=== PATIENT | female | born 1970 | race Caucasian/White ===

== ENCOUNTER → 2016-07-15 | Outpatient (CLI) | payer MEDICAID ==
--- NOTE | 2016-07-15 14:30 | US ---
EXAMINATION TYPE: US transvaginal DATE OF EXAM: 07/15/2016 9:49 AM COMPARISON: CT and US on PACS March 24, 2016. CLINICAL HISTORY: Pelvic pain x 4 months, left side > right; endometrial ablation ~ 3 years prior wit h no menses since then. TECHNIQUE: Transvaginal (TV) pelvic ultrasound Date of LMP: 3 years ago EXAM MEASUREMENTS: Uterus: 6.2 x 6.1 x 4.0cm Endometrial Stripe: 0.8cm maximum, not well seen on images saved. Right Ovary: 2.4 x 1.7 x 2.3cm Left Ovary: 2.4 x 2.6 x 2.5cm FINDINGS: TECHNOLOGIST IMPRESSION: 1. Uterus: Anteverted 2. Endometrium: small cyst = 0.3 x 0.4 x 0.3cm noted in upper hyperechoic endometrial appearing tiss ue, with endometrial tissue still noted by US post ablation 3. Right Ovary: multifollicular with largest cyst= 1.2 x 0.8 x 0.8cm 4. Left Ovary: multiple follicles with largest cyst = 1.7 x 1.8 x 1.6cm Spectral, color and waveform doppler imaging shows good arterial and venous flow within the ovaries ; there is no evidence for ovarian torsion. 5. Bilateral Adnexa: within normal limits 6. Posterior cul-de-sac: within normal limits Uterus is heterogeneous in appearance. There are small nabothian cysts in the cervix. Some small cyst ic change along the course of the endometrial stripe is present which does not appear significantly t hickened. No free fluid is seen in pelvic cul-de-sac. Both ovaries are identified. There are not well demonstrated on images saved. Some ill-defined small lesions bilaterally likely reflect follicles. No suspicious adnexal mass is clearly seen. IMPRESSION: Heterogeneous cystic change to the endometrium may be product of prior ablation otherwise unremarkable study.
--- NOTE | 2016-07-16 09:45 | MM ---
Reason for exam: screening (asymptomatic). Last mammogram was performed 2 years ago. History: Family history of breast cancer in aunt and premenopausal breast cancer in cousin at age 34. Physical Findings: A clinical breast exam by your physician is recommended on an annual basis and results should be correlated with mammographic findings. MG 3D Screening Mammo W/Cad Bilateral CC and MLO view(s) were taken. Prior study comparison: July 18, 2014, bilateral MG screening mammo w CAD. June 17, 2012, [facility] DIGITAL LEFT BREAST MAMMOGRAM w/CAD. The breast tissue is heterogeneously dense. This may lower the sensitivity of mammography. There is no discrete abnormality. No significant changes when compared with prior studies. ASSESSMENT: Negative, BI-RAD 1 RECOMMENDATION: Routine screening mammogram of both breasts in 1 year.
== END | disposition home or self-care (01) ==
LOC: RADMAMWWP 09:03
PROVIDERS: ATTEND Obstetrics & Gynecology
DX: Z12.31 Encounter for screening mammogram for malignant neoplasm of breast (principal); N85.8 Other specified noninflammatory disorders of uterus; R10.2 Pelvic and perineal pain
CPT/HCPCS: 77063; 93975; 76830; G0202

== ENCOUNTER → 2016-09-30 | Outpatient (CLI) | payer MEDICAID ==
[2016-09-30 11:32] LABS: Basophils # (A) 0.1 k/uL (0-0.2); Basophils % (A) 1 %; CH 28.6; CHCM 32.2; Eosinophils # (A) 0.1 k/uL (0-0.7); Eosinophils % (A) 2 %; HCT 42.8 % (34.0-46.0); HDW 2.27; HGB 13.8 gm/dL (11.4-16.0); Luc # (Auto) 0.11; Luc % (Auto) 2; Lymphocytes # (A) 1.8 k/uL (1.0-4.8); Lymphocytes % (A) 26 %; MCH 28.8 pg (25.0-35.0); MCHC 32.3 g/dL (31.0-37.0); MCV 89.1 fL (80.0-100.0); Mean Platelet Volume 7.5; Monocytes # (A) 0.4 k/uL (0-1.0); Monocytes % (A) 6 %; Neutrophils # (A) 4.6 k/uL (1.3-7.7); Neutrophils % (A) 64 %; RDW 13.3 % (11.5-15.5); WBC 7.1 k/uL (3.8-10.6); WBC (Perox) 7.22
[2016-09-30 11:45] LABS: Anion Gap 10 mmol/L; Blood Urea Nitrogen 14 mg/dL (7-17); Carbon Dioxide 25 mmol/L (22-30); Chloride 107 mmol/L (98-107); Glucose 83 mg/dL (74-99); Non-African American GFR(MDRD) >60 (>60 ml/min/1.73 sqM); Potassium 4.4 mmol/L (3.5-5.1); Sodium 142 mmol/L (137-145)
== END | disposition home or self-care (01) ==
LOC: LABPAT 10:57
PROVIDERS: ATTEND Obstetrics & Gynecology
DX: Z01.812 Encounter for preprocedural laboratory examination (principal)
CPT/HCPCS: 80051; 82565; 82947; 84520; 85025; 87086

== ENCOUNTER 2016-10-06 05:54 | Observation (INO) | payer MEDICAID ==
[2016-09-28 14:49] VITALS: BMI 33.0
--- NOTE | 2016-10-05 20:09 | HP ---
DATE OF ADMISSION: HISTORY: This is a 46-year-old 5, para 3-0-2-3 woman with a history of pelvic pain, status post NovaSure endometrial ablation. She has failed conservative management and desires definitive surgical management. She has a small first or second degree cystocele as well. She is scheduled for total vaginal hysterectomy with possible cystocele repair. The patient's endometrial ablation was in 2012. Since that time she has had mild bleeding, but has severe cyclic pain and pain with intercourse. Pelvic ultrasound and CT scan are essentially normal showing a uterus measuring 6.2 x 6.1 x 4.0 cm and an endometrial stripe with some small cystic fluid filled areas consistent with post ablation changes. Normal bilateral adnexa. No history of recent abnormal Pap smear. ALLERGIES: NONE. MEDICATIONS: Synthroid 150 mcg. PAST MEDICAL HISTORY: Pelvic pain, asthma, hypothyroidism. PAST SURGICAL HISTORY: Appendectomy at age 11, laminectomy in 1999 and NovaSure endometrial ablation in 2012, tonsillectomy as a child. 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 No history of pelvic infection or abnormal Pap smears. SOCIAL HISTORY: She is . She is a former smoker. No alcohol or drug use. FAMILY HISTORY: Significant for prostate cancer in a brother and COPD in her mother. REVIEW OF SYSTEMS: Negative except for that described above. PHYSICAL EXAM: Blood pressure 130/80. Height 5 foot 10, weight 228 pounds. In general, this is a pleasant female in no obvious distress. HEENT exam is unremarkable with no palpable lymphadenopathy or thyromegaly. The heart is regular rate and rhythm with no detectable murmur. LUNGS: Clear to auscultation bilaterally. The abdomen is soft and nontender with no rebound, no guarding, and no flank pain. On pelvic examination, she has normal female external genitalia without lesions or discharge. On speculum examination, the cervix is without any gross lesions. There is a small first to second degree cystocele. On bimanual examination, the uterus is small, freely mobile and in the midline. ASSESSMENT: This is a 46-year-old 5, para 3-0-2-3 woman with pelvic pain, status post endometrial ablation. She desires definitive surgical management. She also has a small first or second degree cystocele that will be evaluated. She is scheduled for total vaginal hysterectomy with possible cystocele repair on 10/06/16. This procedure, anticipated hospital course and recovery time have been reviewed with the patient. The risks have been reviewed with the patient and include, but are not limited to bleeding, transfusion, infection, laparotomy, damage to bowel, bladder, ureters and/or other pelvic or abdominal structures. There may be anesthesia complications, DVT, PE, and/or . The patient understands these risks and consent has been obtained.
[~2016-10-06 05:54] MED LIST: HYDROmorphone 1 MG/ML 1 ML SYRINGE IVP PRN; MIDAZOLAM 2 MG/2 ML VIAL IV PRN; ceFAZolin 2 GM in SODIUM CHLORIDE 0.9% 100 ML IVPB ONE
[2016-10-06] MEDS: SCOPOLAMINE 1.5MG/72HR PATCH TRANSDERM ONE ×2 (06:26→06:35)
[2016-10-06] MEDS: LIDOCAINE 1% 20 ML VIAL (10MG/ML) FOR IV START INTRADERMA PRN ×2 (06:27→06:36)
[2016-10-06] MEDS: FAMOTIDINE 20 MG/2 ML VIAL IV PRN ×2 (06:34→06:36)
[2016-10-06] MEDS: DEXAMETHASONE SOD PHOSPHATE 10 MG/ML 1 ML VIAL IV ONE ×2 (06:34→06:36)
[2016-10-06] MEDS: ONDANSETRON 4 MG/2 ML VIAL IVP ONE ×3 (06:34→10:56)
[2016-10-06] MEDS ORDERED: LACTATED RINGERS 1,000 ML IV ONE ×2 (06:34→06:37)
[2016-10-06] MEDS ORDERED: MIDAZOLAM 2 MG/2 ML VIAL ONE (07:28)
[2016-10-06] MEDS ORDERED: fentaNYL (PF) 50 MCG/ML 2 ML AMP ONE (07:28)
[2016-10-06] MEDS ORDERED: LIDOCAINE 1% INJ 10MG/ML (20 ML MDV) ONE (07:28)
[2016-10-06] MEDS ORDERED: PROPOFOL 10 MG/ML 20 ML VIAL IV ONE (07:28)
[2016-10-06] MEDS ORDERED: SUCCINYLCHOLINE CHLORIDE 100 MG/5 ML SYR IV ONE (07:28)
[2016-10-06] MEDS ORDERED: ONDANSETRON 4 MG/2 ML VIAL ONE (07:28)
[2016-10-06] MEDS ORDERED: KETOROLAC 30 MG/ML 1 ML VIAL ONE (07:28)
[2016-10-06] MEDS ORDERED: BACITRACIN 500 UNIT/GM OINT 28.4 GM TUBE TOPICAL ONE (07:43)
[2016-10-06] MEDS ORDERED: VASOPRESSIN 20 UNIT/ML 1 ML VIAL IV ONE (07:43)
--- NOTE | 2016-10-06 08:36 | P.OP ---
Date of Procedure: 10/06/16 Preoperative Diagnosis: Pelvic pain Second-degree cystocele Postoperative Diagnosis: Pelvic pain Second-degree cystocele Second-degree rectocele Procedure(s) Performed: Total vaginal hysterectomy Anesthesia: MILDRED Surgeon: Ashley Zavala Grade Foreman #1: Ghada Viveros Estimated Blood Loss (ml): 100 IV fluids (ml): 400 Urine output (ml): 200 Pathology: none sent (Uterus) Condition: stable Disposition: PACU Indications for Procedure: Worsening cyclic pelvic pain status post endometrial ablation. Symptomatic pelvic prolapse. Operative Findings: Second-degree cystocele and rectocele with first-degree cervical uterine prolapse. Description of Procedure: After the patient and her were met in the preoperative holding area and all questions were answered, she was taken to the operating room where anesthetic was administered without incident. Appropriate timeout procedure was undertaken. She was in positioned, prepped and draped in the dorsal lithotomy position. Weighted speculum was placed in the vagina. The cervix was grasped with a single-tooth tenaculum and dilute vasopressin solution was infused in the vaginal mucosa circumferentially about the cervix. Scalpel was then utilized to make a circumferential incision about the cervix. The anterior , lateral and posterior vaginal mucosa were bluntly away from the underlying cervical tissue. The posterior peritoneum was then placed on countertraction and entered sharply. The posterior peritoneum was tagged with a 2-0 Vicryl suture. The short weighted speculum was removed and a long weighted speculum was replaced. The anterior vaginal mucosa was further bluntly dissected dissected away from the underlying cervical tissue. This advanced the bladder anteriorly. The uterosacral ligaments were then clamped, cut and suture ligated using 2-0 Vicryl suture bilaterally. The broad ligaments were then clamped, cut and suture ligated bilaterally. The uterine vasculature was then clamped, cut and suture ligated bilaterally. The posterior fundus of the uterus was then delivered and a window was made in the anterior peritoneum. The bladder had been advanced anteriorly throughout this process. The left followed by the right cornual pedicles were then clamped, cut and doubly suture ligated. The right fallopian tube on the was not incorporated into this and was grasped with a Cindy clamp and tied with a free tie of 2-0 Vicryl. Both pedicles were inspected and hemostasis was noted. There was noted to be bleeding from the lateral and posterior vaginal cuff with removal of the long weighted speculum. Some areas were addressed using Bovie electrocautery. The peritoneum was then closed in a pursestring fashion. The uterosacral ligaments were incorporated with the vaginal cuff and ligated in the midline. The vaginal cuff was then further closed in an interrupted fashion with 0 Vicryl suture. The vaginal cuff was observed and hemostasis was noted. Vaginal packing with bacitracin was placed after Gomez catheter was placed. Clear urine was noted. The patient was awoken from anesthetic and transported to the recovery area in stable condition. All counts reported to me as correct by the operating room staff.
[2016-10-06] MEDS: PROMETHAZINE INJ 25 MG/ML 1 ML VIAL IVPB ONE ×2 (08:39→09:04)
[2016-10-06] MEDS ORDERED: METOCLOPRAMIDE 5 MG/ML 2 ML VIAL IVP ONE (08:54)
[2016-10-06] MEDS ORDERED: diphenhydrAMINE 50 MG/ML 1 ML VIAL IVP ONE (09:03)
[2016-10-06] MEDS: LACTATED RINGERS 1,000 ML IV SCH ×4 (09:16→20:57)
[2016-10-06] MEDS ORDERED: ZOLPIDEM 5 MG TAB PO PRN (09:30)
[2016-10-06] MEDS ORDERED: Acetaminophen-Codeine 300-30mg TAB PO PRN ×2 (09:30)
[2016-10-06] MEDS ORDERED: ACETAMINOPHEN IV (For NPO) 1,000 MG in EMPTY BAG 1 BAG IVPB ONE (09:30)
[2016-10-06] MEDS: LEVOTHYROXINE 75 MCG TAB PO SCH (10:59)
[2016-10-06] MEDS: HYDROmorphone 1 MG/ML 1 ML SYRINGE IM PRN ×3 (11:50→20:59)
[2016-10-06] MEDS ORDERED: ONDANSETRON 4 MG/2 ML VIAL IVP PRN (12:07)
[2016-10-06] MEDS ORDERED: diphenhydrAMINE 50 MG/ML 1 ML VIAL IVP PRN (12:08)
[2016-10-06] MEDS ORDERED: METOCLOPRAMIDE 5 MG/ML 2 ML VIAL IVP PRN (12:08)
[2016-10-06] MEDS: KETOROLAC 30 MG/ML 1 ML VIAL IVP SCH ×2 (15:54→22:00)
[2016-10-07] MEDS: KETOROLAC 30 MG/ML 1 ML VIAL IVP SCH ×4 (04:16→17:59)
[2016-10-07] MEDS: LEVOTHYROXINE 75 MCG TAB PO SCH (06:12)
[2016-10-07] MEDS: LACTATED RINGERS 1,000 ML IV SCH (06:13)
[2016-10-07 07:26] LABS: Basophils % (A) 0 %; CH 28.1; CHCM 31.2; Eosinophils % (A) 0 %; HDW 2.25; HGB 11.7 gm/dL (11.4-16.0); Luc # (Auto) 0.15; Luc % (Auto) 2; Lymphocytes # (A) 2.7 k/uL (1.0-4.8); Lymphocytes % (A) 29 %; MCH 29.4 pg (25.0-35.0); MCHC 32.5 g/dL (31.0-37.0); MCV 90.2 fL (80.0-100.0); Mean Platelet Volume 7.4; Monocytes # (A) 0.6 k/uL (0-1.0); Monocytes % (A) 6 %; Neutrophils % (A) 63 %; RBC 3.99 m/uL (3.80-5.40); RDW 13.1 % (11.5-15.5); WBC 9.5 k/uL (3.8-10.6); WBC (Perox) 9.68
--- NOTE | 2016-10-07 08:35 | P.DS ---
Providers Date of admission: 10/06/16 17:47 Expected date of discharge: 10/07/16 Attending physician: Ashley Zavala Primary care physician: Farhan Leonardo - Discharge Diagnosis(es) (1) Pelvic pain Current Visit: Yes Status: Acute (2) S/P hysterectomy Current Visit: Yes Status: Acute (3) Cystocele Current Visit: Yes Status: Acute Hospital Course: This is a 46 year old 5 para 3 woman with chronic worsening pelvic pain. She has a mild asymptomatic pelvic prolapse. She was admitted on 2016 and underwent an uncomplicated total vaginal hysterectomy under general anesthetic. Please see the operative report for details. On postoperative day #1 she was feeling very well. Her pain was well- controlled with oral pain medications and Toradol. She was able to ambulate and void without difficulty when the Gomez catheter was removed. She has no active vaginal bleeding. She is tolerating a general diet without difficulty. Her postoperative day #1 labs are within normal limits. Her clinical exam is benign with no active vaginal bleeding and soft abdomen. She is therefore discharged home on postoperative day #1 with routine instructions for care and follow-up. Plan - Discharge Summary New Discharge Prescriptions: Acetaminophen-Codeine 300-30mg [Tylenol w/codeine #3] 2 each PO Q6HR PRN #30 tab PRN Reason: Severe Pain Discharge Medication List Levothyroxine Sodium [Synthroid] 150 mcg PO DAILY 03/24/16 [History] Acetaminophen-Codeine 300-30mg [Tylenol w/codeine #3] 2 each PO Q6HR PRN #30 tab 10/07/16 [Rx] Ibuprofen [Motrin] 600 mg PO Q6HR PRN #0 tab 10/07/16 [Rx] Follow up Appointment(s)/Referral(s): Ashley Zavala MD [STAFF PHYSICIAN] - 2 Weeks Activity/Diet/Wound Care/Special Instructions: Follow-up in the office 2 weeks postoperatively. Call the office with any concerning signs or symptoms including heavy vaginal bleeding, foul vaginal discharge, inability to void, severe abdominal pain, fever greater than 100.5 or severe nausea and vomiting. Nothing in the vagina, no intercourse for 6 weeks. No heavy lifting until seen in follow-up. Discharge Disposition: HOME SELF-CARE
[2016-10-07] MEDS ORDERED: ACETAMINOPHEN TAB 325 MG TAB PO PRN (08:38)
[2016-10-07 09:07] VITALS: RESP 16
[2016-10-07] MEDS: HYDROmorphone 1 MG/ML 1 ML SYRINGE IM PRN (10:46)
[2016-10-07 13:17] VITALS: TEMP 98.3
[2016-10-07] MEDS ORDERED: IBUPROFEN 600 MG TAB PO PRN (15:26)
[2016-10-07 15:54] VITALS: BP 100/68; PULSE 78
[2016-10-08] MEDS ORDERED: IBUPROFEN 600 MG TAB PO PRN (18:00)
== END 2016-10-07 18:35 | disposition home or self-care (01) ==
LOC: OR 05:54 → 6PED 09:00 → OR 17:57
PROVIDERS: ADMIT Obstetrics & Gynecology; ATTEND Obstetrics & Gynecology
DX: N81.4 Uterovaginal prolapse, unspecified (principal); R10.2 Pelvic and perineal pain; E03.9 Hypothyroidism, unspecified; Z87.891 Personal history of nicotine dependence
CPT/HCPCS: 81025; 86900; 86901; 85025; 86850; 88307; 58260; G0378 ×2; J2250; J1200; J1100; J2550; J2765; J0690; J2405; J2001; J3010; J1885 ×2; J1170 ×2; J0131; J0330; J2704; 96376

== ENCOUNTER → 2017-08-23 | Outpatient (CLI) | payer MEDICAID ==
--- NOTE | 2017-08-23 16:00 | XR ---
Cervical spine HISTORY: Bilateral shoulder pain 5 views of the cervical spine Comparison to prior exam 08/30/2013 There is no significant foraminal encroachment on oblique views. Cervical vertebral bodies show stabl e height, alignment, and bone mineralization. Disc spaces are unchanged. Mild loss of disc height pre sent at C5-6. Prevertebral soft tissues are normal. IMPRESSION: Mild degenerative disc disease is suspected, cervical MRI may be of benefit.
== END | disposition home or self-care (01) ==
LOC: RADXRYALE 13:49
PROVIDERS: ATTEND Physician Assistant
DX: M50.10 Cervical disc disorder with radiculopathy, unspecified cervical region (principal); M25.519 Pain in unspecified shoulder
CPT/HCPCS: 72050

== ENCOUNTER → 2017-09-02 | Outpatient (CLI) | payer MEDICAID ==
--- NOTE | 2017-09-02 17:08 | XR ---
First digit right hand HISTORY: Injury 3 weeks prior, pain 2 views of the first digit of the right hand Bone mineralization, joint spaces and alignment are maintained. Some spurring present at the radiocar pal joint. Question subluxation at the radial ulnar joint, patient positioning may be suboptimal. Cor relate clinically. IMPRESSION: No acute fracture or dislocation evident. Additional findings above.
== END | disposition home or self-care (01) ==
LOC: RADXRYALE 14:56
PROVIDERS: ATTEND Physician Assistant Medical
DX: M79.641 Pain in right hand (principal)

== ENCOUNTER → 2017-09-08 | Outpatient (CLI) | payer MEDICAID ==
--- NOTE | 2017-09-08 23:05 | MR ---
EXAMINATION TYPE: MR cervical spine wo con DATE OF EXAM: 09/08/2017 COMPARISON: NONE HISTORY: 47-year-old female Neck pain, BUE weakness, headaches TECHNIQUE: Multiplanar, multisequence images of the cervical spine were acquired. Findings: No craniocervical junction abnormality, predental space widening, or prevertebral soft tissue swellin g. Normal alignment of the cervical spine. Mild heterogeneous marrow signal without suspicious bone marrow replacement. There is mild multilevel degenerative disc disease characterized by variable disc desiccation. Minima l posterior disc bulges are present at C5-C6 and C6/C7. At C6/C7, there is a right paracentral annula r fissure. Scattered mild facet degenerative change. Axial series do not confirm any abnormal T2 cord signal abnormality. Normal course and caliber of the cervical cord. At C2-C3, mild facet arthropathy without canal or foraminal stenosis. At C3 to mild facet arthropathy without canal or foraminal stenosis. At C4-C5, mild facet arthropathy without canal or foraminal stenosis. At C5-C6, mild facet arthropathy and minimal posterior disc bulging without canal or foraminal stenos is. At C6/C7, minimal posterior disc bulging with facet degenerative change. No significant canal or fora magan stenosis. C7-T1 no spinal canal or neuroforaminal stenosis. No prevertebral or paravertebral soft tissue abnormality seen. IMPRESSION: 1. Mild multilevel degenerative disc disease. Minimal posterior disc bulging at C5-C6 and C6-C7 and a small right paracentral annular fissure at C6-C7. 2. Additional scattered facet arthropathy. 3. No significant spinal canal or neuroforaminal stenosis.
== END | disposition home or self-care (01) ==
LOC: RADMRIMAIN 19:41
PROVIDERS: ATTEND Physician Assistant
DX: M50.10 Cervical disc disorder with radiculopathy, unspecified cervical region (principal); M50.122 Cervical disc disorder at C5-C6 level with radiculopathy; M46.92 Unspecified inflammatory spondylopathy, cervical region
CPT/HCPCS: 72141

== ENCOUNTER → 2017-09-23 | Outpatient (CLI) | payer MEDICAID ==
--- NOTE | 2017-09-23 17:36 | XR ---
EXAMINATION TYPE: XR shoulder complete BILAT DATE OF EXAM: 09/23/2017 COMPARISON: NONE HISTORY: Shoulder pain TECHNIQUE: 6 views FINDINGS: 3 views of each shoulder were obtained. I see no fracture nor dislocation. Joint spaces are fairly normal. There are no pathologic calcificat ions. IMPRESSION: Negative bilateral shoulder exam. No fracture.
== END | disposition home or self-care (01) ==
LOC: RADXRMAIN 16:45
PROVIDERS: ATTEND Orthopaedic Surgery
DX: M25.511 Pain in right shoulder (principal); M65.811 Other synovitis and tenosynovitis, right shoulder; M25.512 Pain in left shoulder; M65.812 Other synovitis and tenosynovitis, left shoulder; M75.42 Impingement syndrome of left shoulder; M75.41 Impingement syndrome of right shoulder; M75.82 Other shoulder lesions, left shoulder; M75.81 Other shoulder lesions, right shoulder

== ENCOUNTER → 2018-08-23 | Outpatient (CLI) | payer MEDICAID ==
--- NOTE | 2018-08-23 15:46 | XR ---
Right hip HISTORY: Chronic right hip pain 2 views of the right hip Bone mineralization, joint spaces and alignment are maintained. No fracture or dislocation. Indetermi misa calcification present in the right hemipelvis. IMPRESSION: Normal right hip, MRI may be of benefit.
== END | disposition home or self-care (01) ==
LOC: RADXRYALE 15:11
PROVIDERS: ATTEND Family Medicine
DX: M25.551 Pain in right hip (principal)
CPT/HCPCS: 73502

== ENCOUNTER 2018-12-08 15:25 | Observation (INO) | payer MEDICAID ==
[2018-12-08] MEDS ORDERED: ASPIRIN 81 MG PO STA (16:01)
[2018-12-08] MEDS ORDERED: NITROGLYCERIN OINT 1 INCH/GM PACKET TOPICAL STA (16:01)
--- NOTE | 2018-12-08 16:05 | ED ---
General Adult HPI - General Chief complaint: Chest Pain Stated complaint: Chest pain, ekg changes Time Seen by Provider: 12/08/18 15:30 Source: patient, RN notes reviewed Mode of arrival: wheelchair Limitations: no limitations - History of Present Illness Initial comments: This is a 48-year-old female who presents to the emergency department complaining of right-sided chest pain that radiates to her shoulder. Patient states she also became diaphoretic and nauseated with it today. Patient states been ongoing for about 2 hours. Patient states she has a history of high cholesterol but refuses to take any for high cholesterol medications. Patient states the pain is sharp in nature. Patient states she does not smoke she has no diabetes she has no family history of heart disease. Patient states she was sent in because the PA at the primary medical care doctor's office. EKG showed some changes from a previous EKG. - Related Data Home Medications Medication Instructions Recorded Confirmed Levothyroxine Sodium [Synthroid] 150 mcg PO DAILY 03/24/16 12/08/18 Allergies Allergy/AdvReac Type Severity Reaction Status Date / Time influenza virus vaccine, Allergy Unknown Verified 12/08/18 16:06 specific [influenza virus vacc,specific] Review of Systems ROS Statement: Those systems with pertinent positive or pertinent negative responses have been documented in the HPI. ROS Other: All systems not noted in ROS Statement are negative. Past Medical History Past Medical History: Thyroid Disorder Additional Past Medical History / Comment(s): PELVIC PAIN. GR 2 CYSTOCELE History of Any Multi-Drug Resistant Organisms: None Reported Past Surgical History: Appendectomy, Back Surgery, Tonsillectomy Additional Past Surgical History / Comment(s): uterine ablation. LAMINECTOMY Past Anesthesia/Blood Transfusion Reactions: Motion Sickness Past Psychological History: No Psychological Hx Reported Smoking Status: Never smoker Past Alcohol Use History: None Reported Past Drug Use History: None Reported - Past Family History Father Family Medical History: Deep Vein Thrombosis (DVT) General Exam - General Exam Comments Initial Comments: GENERAL: Patient is well-developed and well-nourished. Patient is nontoxic and well- hydrated and is in mild distress. ENT: Neck is soft and supple. No significant lymphadenopathy is noted. Oropharynx is clear. Moist mucous membranes. Neck has full range of motion without eliciting any pain. EYES: The sclera were anicteric and conjunctiva were pink and moist. Extraocular movements were intact and pupils were equal round and reactive to light. Eyelids were unremarkable. PULMONARY: Unlabored respirations. Good breath sounds bilaterally. No audible rales rhonchi or wheezing was noted. CARDIOVASCULAR: There is a regular rate and rhythm without any murmurs gallops or rubs. ABDOMEN: Soft and nontender with normal bowel sounds. SKIN: Skin is clear with no lesions or rashes and otherwise unremarkable. NEUROLOGIC: Patient is alert and oriented x3. Cranial nerves II through XII are grossly intact. Motor and sensory are also intact. Normal speech, volume and content. Symmetrical smile. MUSCULOSKELETAL: Normal extremities with adequate strength and full range of motion. LYMPHATICS: No significant lymphadenopathy is noted PSYCHIATRIC: Normal psychiatric evaluation. Limitations: no limitations Course Vital Signs 12/08/18 15:27 Temperature 98.3 F Pulse Rate 100 Respiratory 18 Rate Blood Pressure 137/90 O2 Sat by Pulse 99 Oximetry Medical Decision Making - Medical Decision Making EKG shows normal sinus rhythm at 87 bpm MN interval 224 QRS is 76 QT interval 380 QTC is 457. Patient's EKG shows no ST segment elevation or depression. I compared this EKG to a past EKG that she brought with her and there are no acute changes noted - Lab Data Result diagrams: 12/08/18 16:02 12/08/18 16:02 Lab Results 12/08/18 12/08/18 12/08/18 Range/Units 16:02 16:02 16:02 WBC 10.4 (3.8-10.6) k/uL RBC 4.89 (3.80-5.40) m/uL Hgb 13.4 (11.4-16.0) gm/dL Hct 41.9 (34.0-46.0) % MCV 85.5 (80.0-100.0) fL MCH 27.3 (25.0-35.0) pg MCHC 31.9 (31.0-37.0) g/dL RDW 13.8 (11.5-15.5) % Plt Count 350 (150-450) k/uL Neutrophils % 64 % Lymphocytes % 26 % Monocytes % 5 % Eosinophils % 2 % Basophils % 0 % Neutrophils # 6.7 (1.3-7.7) k/uL Lymphocytes # 2.7 (1.0-4.8) k/uL Monocytes # 0.6 (0-1.0) k/uL Eosinophils # 0.2 (0-0.7) k/uL Basophils # 0.0 (0-0.2) k/uL PT 9.3 (9.0-12.0) sec INR 0.8 (<1.2) APTT 25.6 (22.0-30.0) sec D-Dimer 0.51 (<0.60) mg/L FEU Sodium 139 (137-145) mmol/L Potassium 4.1 (3.5-5.1) mmol/L Chloride 105 (98-107) mmol/L Carbon Dioxide 25 (22-30) mmol/L Anion Gap 9 mmol/L BUN 11 (7-17) mg/dL Creatinine 0.72 (0.52-1.04) mg/dL Est GFR (CKD-EPI)AfAm >90 (>60 ml/min/1.73 sqM) Est GFR (CKD-EPI)NonAf >90 (>60 ml/min/1.73 sqM) Glucose 86 (74-99) mg/dL Calcium 9.0 (8.4-10.2) mg/dL Magnesium 2.2 (1.6-2.3) mg/dL Total Bilirubin 0.4 (0.2-1.3) mg/dL AST 19 (14-36) U/L ALT 15 (9-52) U/L Alkaline Phosphatase 124 (38-126) U/L Troponin I (0.000-0.034) ng/mL Total Protein 7.1 (6.3-8.2) g/dL Albumin 4.3 (3.5-5.0) g/dL 12/08/18 Range/Units 16:02 WBC (3.8-10.6) k/uL RBC (3.80-5.40) m/uL Hgb (11.4-16.0) gm/dL Hct (34.0-46.0) % MCV (80.0-100.0) fL MCH (25.0-35.0) pg MCHC (31.0-37.0) g/dL RDW (11.5-15.5) % Plt Count (150-450) k/uL Neutrophils % % Lymphocytes % % Monocytes % % Eosinophils % % Basophils % % Neutrophils # (1.3-7.7) k/uL Lymphocytes # (1.0-4.8) k/uL Monocytes # (0-1.0) k/uL Eosinophils # (0-0.7) k/uL Basophils # (0-0.2) k/uL PT (9.0-12.0) sec INR (<1.2) APTT (22.0-30.0) sec D-Dimer (<0.60) mg/L FEU Sodium (137-145) mmol/L Potassium (3.5-5.1) mmol/L Chloride (98-107) mmol/L Carbon Dioxide (22-30) mmol/L Anion Gap mmol/L BUN (7-17) mg/dL Creatinine (0.52-1.04) mg/dL Est GFR (CKD-EPI)AfAm (>60 ml/min/1.73 sqM) Est GFR (CKD-EPI)NonAf (>60 ml/min/1.73 sqM) Glucose (74-99) mg/dL Calcium (8.4-10.2) mg/dL Magnesium (1.6-2.3) mg/dL Total Bilirubin (0.2-1.3) mg/dL AST (14-36) U/L ALT (9-52) U/L Alkaline Phosphatase (38-126) U/L Troponin I <0.012 (0.000-0.034) ng/mL Total Protein (6.3-8.2) g/dL Albumin (3.5-5.0) g/dL Disposition Clinical Impression: Chest pain Disposition: ADMITTED IP TO THIS HOSP Referrals: Farhan Leonardo DO [Primary Care Provider] - 1-2 days Time of Disposition: 18:01
[2018-12-08 16:34] LABS: Basophils % (A) 0 %; Eosinophils # (A) 0.2 k/uL (0-0.7); Eosinophils % (A) 2 %; HCT 41.9 % (34.0-46.0); HGB 13.4 gm/dL (11.4-16.0); Lymphocytes # (A) 2.7 k/uL (1.0-4.8); Lymphocytes % (A) 26 %; MCH 27.3 pg (25.0-35.0); MCHC 31.9 g/dL (31.0-37.0); MCV 85.5 fL (80.0-100.0); Mean Platelet Volume 7.7; Monocytes # (A) 0.6 k/uL (0-1.0); Monocytes % (A) 5 %; Neutrophils # (A) 6.7 k/uL (1.3-7.7); Neutrophils % (A) 64 %; Platelet Count 350 k/uL (150-450); RBC 4.89 m/uL (3.80-5.40); RDW 13.8 % (11.5-15.5); WBC 10.4 k/uL (3.8-10.6)
[2018-12-08 16:43] LABS: ALT 15 U/L (9-52); AST 19 U/L (14-36); African American GFR (CKD) >90 (>60 ml/min/1.73 sqM); Albumin 4.3 g/dL (3.5-5.0); Alkaline Phosphatase 124 U/L (38-126); Anion Gap 9 mmol/L; Blood Urea Nitrogen 11 mg/dL (7-17); Carbon Dioxide 25 mmol/L (22-30); Chloride 105 mmol/L (98-107); Glucose 86 mg/dL (74-99); Magnesium 2.2 mg/dL (1.6-2.3); Potassium 4.1 mmol/L (3.5-5.1); Sodium 139 mmol/L (137-145); Total Bilirubin 0.4 mg/dL (0.2-1.3); Total Protein 7.1 g/dL (6.3-8.2)
[2018-12-08 16:49] LABS: D-Dimer 0.51 mg/L FEU (<0.60); INR 0.8 (<1.2); Partial Thromboplastin Time 25.6 sec (22.0-30.0); Prothrombin Time 9.3 sec (9.0-12.0)
--- NOTE | 2018-12-08 17:21 | XR ---
EXAMINATION TYPE: XR chest 2V DATE OF EXAM: 12/08/2018 COMPARISON: 03/30/2015 HISTORY: Chest pain TECHNIQUE: Frontal and lateral views of the chest are obtained. FINDINGS: Heart and mediastinum are normal. Lungs are clear. Diaphragm is normal. Bony thorax is nor mal. There are chest leads. IMPRESSION: Normal chest. No change.
[2018-12-08] MEDS ORDERED: NITROGLYCERIN SL TABS 0.4 MG TAB SUBLINGUAL PRN (18:01)
[2018-12-08 21:39] VITALS: BMI 37.3
[2018-12-08] MEDS: ACETAMINOPHEN TAB 500 MG TAB PO PRN (22:03)
[2018-12-08] MEDS: NITROGLYCERIN OINT 1 INCH/GM PACKET TOPICAL SCH (23:09)
[2018-12-08 23:22] VITALS: RESP 18
[2018-12-09 04:36] LABS: Cholesterol 198 mg/dL (<200); HDL Cholesterol 40 mg/dL (40-60); LDL Cholesterol,Calculated 138 mg/dL (0-99); Triglycerides 98 mg/dL (<150)
[2018-12-09] MEDS: NITROGLYCERIN OINT 1 INCH/GM PACKET TOPICAL SCH ×2 (05:07→11:12)
[2018-12-09] MEDS: ACETAMINOPHEN TAB 500 MG TAB PO PRN (05:07)
[2018-12-09] MEDS ORDERED: LEVOTHYROXINE 75 MCG TAB PO SCH (06:30)
[2018-12-09] MEDS ORDERED: ASPIRIN 325 MG TAB PO SCH (09:00)
--- NOTE | 2018-12-09 09:00 | P.CRDCN ---
History of Present Illness Consult date: 12/09/18 History of present illness: This is a 48-year-old female with history of mild hypercholesterolemia who works at the [employer] in [place]. She is has been having some left-sided chest pain which was like a pinching sensation for the last one week. Yesterday while she was at work. The pain got more intense and apparently went to the shoulder area. EKG was performed and [facility] and apparently there was some EKG changes. Patient was sent to the emergency room. Patient was treated with nitroglycerin with relief of pain. Since then patient has been stable. Her EKG did not reveal any acute changes here. Cardiac enzymes are negative. No history of previous myocardial infarctions or stroke. No history of hypertension or diabetes. No family history of ischemic heart disease. Apparently her father had atrial fibrillation. Patient is being scheduled for an echo and also stress echocardiogram. If the test are negative, patient could be discharged home. Past Medical History Past Medical History: Hyperlipidemia, Thyroid Disorder Additional Past Medical History / Comment(s): PELVIC PAIN. GR 2 CYSTOCELE History of Any Multi-Drug Resistant Organisms: None Reported Past Surgical History: Appendectomy, Back Surgery, Tonsillectomy Additional Past Surgical History / Comment(s): uterine ablation. LAMINECTOMY Past Anesthesia/Blood Transfusion Reactions: Motion Sickness Past Psychological History: No Psychological Hx Reported Smoking Status: Former smoker Past Alcohol Use History: None Reported Past Drug Use History: None Reported - Past Family History Father Family Medical History: Deep Vein Thrombosis (DVT) Mother Additional Family Medical History / Comment(s): Emphysema, patient states mother passed when she was 68. Medications and Allergies Home Medications Medication Instructions Recorded Confirmed Type Levothyroxine Sodium [Synthroid] 150 mcg PO DAILY 03/24/16 12/08/18 History Allergies Allergy/AdvReac Type Severity Reaction Status Date / Time influenza virus vaccine, Allergy Unknown Verified 12/08/18 16:06 specific [influenza virus vacc,specific] Physical Exam Vitals: Vital Signs Temp Pulse Pulse Resp BP BP Pulse Ox 12/09/18 08:00 98.1 F 79 18 109/63 97 12/09/18 04:00 98.2 F 18 112/62 98 12/08/18 23:21 98 F 18 142/70 98 12/08/18 21:10 98.3 F 66 14 107/59 94 L 12/08/18 20:40 96 18 113/84 97 12/08/18 20:10 91 16 116/78 96 12/08/18 19:40 90 23 117/79 95 12/08/18 19:30 86 12 112/74 96 12/08/18 19:20 90 11 L 113/65 95 12/08/18 19:10 76 22 113/65 96 12/08/18 18:50 78 18 111/61 95 12/08/18 18:44 57 L 18 125/76 97 12/08/18 18:27 80 18 127/77 97 12/08/18 15:42 96 12/08/18 15:27 98.3 F 100 18 137/90 99 Intake and Output 12/08/18 12/09/18 12/09/18 22:59 06:59 14:59 Other: # Voids 1 Weight 117.934 kg 119.6 kg GENERAL EXAM: Patient is alert and oriented and doesn't appear to be in any acute distress HEENT: Normocephalic. Normal reaction of pupils, equal size, normal range of extraocular motion. No erythema or exudates in the throat. NECK: No masses, no nuchal rigidity. CHEST: No chest wall deformity. LUNGS: Equal air entry with no crackles or wheeze. HEART: S1 and S2 normal with no audible mumurs or gallops. Regular rhythm, femorals equal on both sides.. ABDOMEN: No hepatosplenomegaly, normal bowel sounds, no guarding or rigidity. SKIN: No rashes CENTRAL NERVOUS SYSTEM: No focal deficits. EXTREMITIES: No cyanosis, clubbing or edema. Results 12/08/18 16:02 12/08/18 16:02 Cardiac Enzymes 12/08/18 12/08/18 12/08/18 Range/Units 16:02 16:02 22:08 AST 19 (14-36) U/L Troponin I <0.012 <0.012 (0.000-0.034) ng/mL 12/09/18 Range/Units 03:32 AST (14-36) U/L Troponin I <0.012 (0.000-0.034) ng/mL Coagulation 12/08/18 Range/Units 16:02 PT 9.3 (9.0-12.0) sec APTT 25.6 (22.0-30.0) sec Lipids 12/09/18 Range/Units 03:32 Triglycerides 98 (<150) mg/dL Cholesterol 198 (<200) mg/dL HDL Cholesterol 40 (40-60) mg/dL CBC 12/08/18 Range/Units 16:02 WBC 10.4 (3.8-10.6) k/uL RBC 4.89 (3.80-5.40) m/uL Hgb 13.4 (11.4-16.0) gm/dL Hct 41.9 (34.0-46.0) % Plt Count 350 (150-450) k/uL Comprehensive Metabolic Panel 12/08/18 Range/Units 16:02 Sodium 139 (137-145) mmol/L Potassium 4.1 (3.5-5.1) mmol/L Chloride 105 (98-107) mmol/L Carbon Dioxide 25 (22-30) mmol/L BUN 11 (7-17) mg/dL Creatinine 0.72 (0.52-1.04) mg/dL Glucose 86 (74-99) mg/dL Calcium 9.0 (8.4-10.2) mg/dL AST 19 (14-36) U/L ALT 15 (9-52) U/L Alkaline Phosphatase 124 (38-126) U/L Total Protein 7.1 (6.3-8.2) g/dL Albumin 4.3 (3.5-5.0) g/dL Current Medications Generic Name Dose Route Start Last Admin Trade Name Freq PRN Reason Stop Dose Admin Acetaminophen 500 mg 12/08/18 21:55 12/09/18 05:07 Tylenol Tab PO 500 mg Q4HR PRN Administration Fever and/ or Pain Aspirin 325 mg 12/09/18 09:00 12/09/18 08:18 Aspirin PO 325 mg DAILY ALAN Administration Levothyroxine Sodium 150 mcg 12/09/18 06:30 12/09/18 05:08 Synthroid PO 150 mcg 0630 ALAN Administration Nitroglycerin 1 inch 12/09/18 00:00 12/09/18 05:07 Nitro-Bid Oint TOPICAL 1 inch Q6HR ALAN Administration Nitroglycerin 0.4 mg 12/08/18 18:01 Nitrostat SUBLINGUAL Q5M PRN Chest Pain Intake and Output 12/08/18 12/09/18 12/09/18 22:59 06:59 14:59 Other: # Voids 1 Weight 117.934 kg 119.6 kg 12/08/18 16:02 12/08/18 16:02 EKG Interpretations (text) Sinus rhythm Assessment and Plan (1) Hypothyroidism Current Visit: Yes Status: Acute Code(s): E03.9 - HYPOTHYROIDISM, UNSPECIFIED SNOMED Code(s): 40447757 (2) Chest pain Current Visit: Yes Status: Acute Code(s): R07.9 - CHEST PAIN, UNSPECIFIED SNOMED Code(s): 66252694 (3) Hypercholesterolemia Current Visit: Yes Status: Acute Code(s): E78.00 - PURE HYPERCHOLESTEROLEMIA, UNSPECIFIED SNOMED Code(s): 61086612 Plan: The chest pains appear to be atypical. Patient is being scheduled for stress echocardiogram, and also surface echocardiogram. If the test results are normal, patient could be discharged home
[2018-12-09 11:25] VITALS: BP 131/86; PULSE 86; TEMP 98
--- NOTE | 2018-12-09 13:07 | ECHOF ---
Referral Reason:Chest pain and cardiomyopathy MEASUREMENTS -------- HEIGHT: 0.0 cm WEIGHT: 119.3 kg BP: 118/77 RVIDd: 3.7 cm (< 3.3) IVSd: 1.1 cm (0.6 - 1.1) LVIDd: 4.4 cm (3.9 - 5.3) LVPWd: 1.0 cm (0.6 - 1.1) IVSs: 1.5 cm LVIDs: 3.1 cm LVPWs: 1.7 cm LAESV Index (A-L): 20.98 ml/m Ao Diam: 3.0 cm (2.0 - 3.7) AV Cusp: 3.9 cm (1.5 - 2.6) LA Diam: 1.3 cm (2.7 - 3.8) MV EXCURSION: 12.148 mm (> 18.000) MV EF SLOPE: 87 mm/s (70 - 150) EPSS: 1.2 cm MV E Taran: 0.77 m/s MV DecT: 214 ms MV A Taran: 0.71 m/s MV E/A Ratio: 1.08 RAP: 5.00 mmHg RVSP: 31.31 mmHg FINDINGS -------- Sinus rhythm. This was a technically adequate study. The left ventricular size is normal. There is borderline concentric left ventricular hypertrophy. Overall left ventricular systolic function is normal with, an EF between 55 - 60 %. The right ventricle is mildly enlarged. Normal LA size by volume 22+/-6 ml/m2. The right atrial size is normal. Interatrial and interventricular septum intact. The aortic valve is trileaflet, and appears structurally normal. No aortic stenosis or regurgitation. The mitral valve is normal. There is trace mitral regurgitation. Mild tricuspid regurgitation present. There is no evidence of pulmonary hypertension. The right v entricular systolic pressure, as measured by Doppler, is 31.31mmHg. There is no pulmonic regurgitation present. The aortic root size is normal. Normal inferior vena cava with normal inspiratory collapse consistent with estimated right atrial pre ssure of 5 mmHg. Echo free space indicative of a pericardial fat pad. CONCLUSIONS -------- 1. Sinus rhythm. 2. This was a technically adequate study. 3. The left ventricular size is normal. 4. There is borderline concentric left ventricular hypertrophy. 5. Overall left ventricular systolic function is normal with, an EF between 55 - 60 %. 6. The right ventricle is mildly enlarged. 7. Normal LA size by volume 22+/-6 ml/m2. 8. The aortic valve is trileaflet, and appears structurally normal. No aortic stenosis or regurgitati on. 9. The mitral valve is normal. 10. There is trace mitral regurgitation. 11. Mild tricuspid regurgitation present. 12. There is no evidence of pulmonary hypertension. 13. There is no pulmonic regurgitation present. 14. Echo free space indicative of a pericardial fat pad. DRAINMAN: Aicha Rey RDCS
--- NOTE | 2018-12-09 13:59 | ECHOS ---
STRESS ECHOCARDIOGRAM INDICATIONS: Chest pain/palpitations. BASELINE HEART RATE: 82 BASELINE BLOOD PRESSURE: 118/77 MAXIMUM HEART RATE: 146 MAXIMUM BLOOD PRESSURE: 141/102 85% MPHR: 145 100% MPHR: 172 METS: 7.7 MAXIMUM STAGE REACHED: 2 TOTAL EXERCISE TIME: 6:00 CLINICAL INFORMATION: Baseline rhythm is sinus mechanism, rate of 82, normal axis, intervals, normal electrocardiogram. Baseline blood pressure 118/77 mmHg. Patient exercised on Carson protocol for 6 minute reaching peak rate 146 beats per minute which is equal to 85% maximum predicted heart rate. Peak blood pressure 141/102 mmHg. Test was terminated due to fatigue. There was no chest pain. Electrocardiograph monitoring revealed no evidence of diagnostic ischemic ST deviation. FINDINGS: Baseline echocardiogram revealed normal wall thickening and motion. At peak exercise, there was normal wall motion augmentation with no hypokinesis or dyskinesis. CONCLUSION: 1. Decreased exercise tolerance was normal electrocardiograph response to exercise. 2. Normal stress echocardiogram with no evidence of stress-induced ischemia. MMODL / IJN: [id number] /
--- NOTE | 2018-12-09 15:21 | P.HPIM ---
History of Present Illness 48-year-old female came in with compensative for left sided precordial chest pain pinching sensation lack has been going on for a since last week. Patient denied any diaphoresis denied lightheadedness chance of breath patient has r adiation of this pain to the left neck area lasted only for a few minutes. He does of which a cardiology evaluated the patient patient had an EKG troponins are negative EKG did not show any acute ST-T wave changes. Patient the had an echo and a stress echo if that negative patient will be discharged today. Etiology of chest pain is not clear May be musculoskeletal. Patient doesn't have any cough chest x-ray did not show pneumonia Review of Systems REVIEW OF SYSTEMS: CONSTITUTIONAL: No fever, no malaise, no fatigue. HEENT: No recent visual problems or hearing problems. Denied any sore throat. CARDIOVASCULAR: No orthopnea, PND, no palpitations, no syncope. PULMONARY: No shortness of breath, no cough, no hemoptysis. GASTROINTESTINAL: No diarrhea, no nausea, no vomiting, no abdominal pain. NEUROLOGICAL: No headaches, no weakness, no numbness. HEMATOLOGICAL: Denies any bleeding or petechiae. GENITOURINARY: Denies any burning micturition, frequency, or urgency. MUSCULOSKELETAL/RHEUMATOLOGICAL: Denies any joint pain, swelling, or any muscle pain. ENDOCRINE: Denies any polyuria or polydipsia. The rest of the 14-point review of systems is negative. Past Medical History Past Medical History: Hyperlipidemia, Thyroid Disorder Additional Past Medical History / Comment(s): PELVIC PAIN. GR 2 CYSTOCELE History of Any Multi-Drug Resistant Organisms: None Reported Past Surgical History: Appendectomy, Back Surgery, Tonsillectomy Additional Past Surgical History / Comment(s): uterine ablation. LAMINECTOMY Past Anesthesia/Blood Transfusion Reactions: Motion Sickness Past Psychological History: No Psychological Hx Reported Smoking Status: Former smoker Past Alcohol Use History: None Reported Past Drug Use History: None Reported - Past Family History Father Family Medical History: Deep Vein Thrombosis (DVT) Mother Additional Family Medical History / Comment(s): Emphysema, patient states mother passed when she was 68. Medications and Allergies Home Medications Medication Instructions Recorded Confirmed Type Levothyroxine Sodium [Synthroid] 150 mcg PO DAILY 03/24/16 12/08/18 History Allergies Allergy/AdvReac Type Severity Reaction Status Date / Time influenza virus vaccine, Allergy Unknown Verified 12/08/18 16:06 specific [influenza virus vacc,specific] Physical Exam Vitals: Vital Signs Temp Pulse Pulse Resp BP BP Pulse Ox 12/09/18 11:25 98 F 86 18 131/86 12/09/18 08:00 98.1 F 79 18 109/63 97 12/09/18 04:00 98.2 F 18 112/62 98 12/08/18 23:21 98 F 18 142/70 98 12/08/18 21:10 98.3 F 66 14 107/59 94 L 12/08/18 20:40 96 18 113/84 97 12/08/18 20:10 91 16 116/78 96 12/08/18 19:40 90 23 117/79 95 12/08/18 19:30 86 12 112/74 96 12/08/18 19:20 90 11 L 113/65 95 12/08/18 19:10 76 22 113/65 96 12/08/18 18:50 78 18 111/61 95 12/08/18 18:44 57 L 18 125/76 97 12/08/18 18:27 80 18 127/77 97 12/08/18 15:42 96 12/08/18 15:27 98.3 F 100 18 137/90 99 Intake and Output 12/09/18 12/09/18 12/09/18 06:59 14:59 22:59 Other: # Voids 1 Weight 119.6 kg PHYSICAL EXAMINATION: GENERAL: The patient is alert and oriented x3, not in any acute distress. Well developed, well nourished. HEENT: Pupils are round and equally reacting to light. EOMI. No scleral icterus. No conjunctival pallor. Normocephalic, atraumatic. No pharyngeal erythema. No thyromegaly. CARDIOVASCULAR: S1 and S2 present. No murmurs, rubs, or gallops. PULMONARY: Chest is clear to auscultation, no wheezing or crackles. ABDOMEN: Soft, nontender, nondistended, normoactive bowel sounds. No palpable organomegaly. MUSCULOSKELETAL: No joint swelling or deformity. EXTREMITIES: No cyanosis, clubbing, or pedal edema. NEUROLOGICAL: Gross neurological examination did not reveal any focal deficits. SKIN: No rashes. Results CBC & Chem 7: 12/08/18 16:02 12/08/18 16:02 Labs: Abnormal Lab Results - Last 24 Hours (Table) 12/09/18 Range/Units 03:32 LDL Cholesterol, Calc 138 H (0-99) mg/dL Thrombosis Risk Factor Assmnt - Choose All That Apply Any of the Below Risk Factors Present?: Yes Each Factor Represents 1 point: Age 41-60 years, Swollen legs (current) Other Risk Factors: No Other congenital or acquired thrombophilia - If yes, enter type in comment: No Thrombosis Risk Factor Assessment Total Risk Factor Score: 2 Thrombosis Risk Factor Assessment Level: Low Risk Assessment and Plan Plan: Chest pain: Rule out acute coronary syndromes, unstable angina. Troponins are negative. EKG did not show significant abnormality. Patient is undergoing stresses if that's negative patient will be discharged today -Hypothyroidism Hypertension
--- NOTE | 2018-12-09 15:22 | P.DS ---
Providers Date of admission: 12/08/18 18:01 Attending physician: Zoie Reid Consults: 12/08/18 18:01 Consult Physician Urgent Consulting Provider: [facility] Consult Reason/Comments: Chest pain Do you want consulting provider notified?: Yes Primary care physician: Farhan Leonardo [facility] Course: Reason for to my HPI Plan - Discharge Summary Discharge Rx Participant: No New Discharge Prescriptions: No Action Levothyroxine Sodium [Synthroid] 150 mcg PO DAILY Discharge Medication List Levothyroxine Sodium [Synthroid] 150 mcg PO DAILY 03/24/16 [History] Follow up Appointment(s)/Referral(s): Svetlana Vasquez MD [STAFF PHYSICIAN] - 12/20/18 8:30 am Farhan Leonardo DO [Primary Care Provider] - 3 Days Patient Instructions/Handouts: Angina (DC), Cardiac Stress Test (DC) Discharge Disposition: HOME SELF-CARE
== END 2018-12-09 15:25 | disposition home or self-care (01) ==
LOC: EC 15:25 → 1SOBS 18:01 → 3SCARD 21:02
PROVIDERS: ADMIT Internal Medicine; ATTEND Internal Medicine
DX: R07.2 Precordial pain (principal); R07.89 Other chest pain; R11.0 Nausea; R61 Generalized hyperhidrosis; E78.5 Hyperlipidemia, unspecified; M79.89 Other specified soft tissue disorders; E03.9 Hypothyroidism, unspecified; I10 Essential (primary) hypertension; E78.00 Pure hypercholesterolemia, unspecified; Z87.891 Personal history of nicotine dependence; Z79.890 Hormone replacement therapy; Z88.7 Allergy status to serum and vaccine; Z83.2 Family history of diseases of the blood and blood-forming organs and certain disorders involving the immune mechanism; Z82.5 Family history of asthma and other chronic lower respiratory diseases
CPT/HCPCS: 99285; 36415; 93005; 93306; 93351; 85379; 80061; 80053; 83735; 84484 ×2; 85025; 85610; 85730; 71046; G0378 ×2

== ENCOUNTER 2018-12-30 09:01 | Observation (INO) | payer MEDICAID ==
[2018-12-30] MEDS ORDERED: ONDANSETRON 4 MG/2 ML VIAL IVP STA (09:21)
[2018-12-30] MEDS ORDERED: SODIUM CHLORIDE 0.9% 1,000 ML IV ONE (09:22)
[2018-12-30] MEDS ORDERED: MECLIZINE 12.5 MG TAB PO STA (09:22)
--- NOTE | 2018-12-30 09:34 | ED ---
General Adult HPI - General Chief complaint: Dizziness Stated complaint: Dizzy Time Seen by Provider: 12/30/18 09:10 Source: patient, RN notes reviewed Mode of arrival: wheelchair Limitations: no limitations - History of Present Illness Initial comments: This a 48-year-old female presents emergency Department with chief complaint of dizziness, chest pain, feeling well. Patient states she's had some ongoing chest pain in issues for the last month and which she was admitted one month ago. She did have a stress echo, with no acute findings. Patient was discharged. She states she has not felt well. States that she woke up today she feels generalized weak, nausea, vomiting and severe dizziness. She states it's doesn't matter she is moving or sitting still. Patient states that she's never had any like this in the past. She does take Synthroid but no other medications. Patient states that she does have some heaviness in her chest no sharp pain. Denies any current shortness of breath. Patient lab work or last ER visit in which she had a negative d-dimer, negative on EKG no changes. - Related Data Home Medications Medication Instructions Recorded Confirmed Levothyroxine Sodium [Synthroid] 150 mcg PO DAILY 03/24/16 12/30/18 Allergies Allergy/AdvReac Type Severity Reaction Status Date / Time influenza virus vaccine, Allergy Unknown Verified 12/30/18 09:07 specific [influenza virus vacc,specific] Review of Systems ROS Statement: Those systems with pertinent positive or pertinent negative responses have been documented in the HPI. ROS Other: All systems not noted in ROS Statement are negative. Past Medical History Past Medical History: Hyperlipidemia, Thyroid Disorder Additional Past Medical History / Comment(s): PELVIC PAIN. GR 2 CYSTOCELE History of Any Multi-Drug Resistant Organisms: None Reported Past Surgical History: Appendectomy, Back Surgery, Hysterectomy, Tonsillectomy Additional Past Surgical History / Comment(s): uterine ablation. LAMINECTOMY Past Anesthesia/Blood Transfusion Reactions: Motion Sickness Past Psychological History: No Psychological Hx Reported Smoking Status: Former smoker Past Alcohol Use History: None Reported Past Drug Use History: None Reported - Past Family History Father Family Medical History: Deep Vein Thrombosis (DVT) Mother Additional Family Medical History / Comment(s): Emphysema, patient states mother passed when she was 68. General Exam Limitations: no limitations General appearance: alert, in no apparent distress Head exam: Present: atraumatic, normocephalic, normal inspection Eye exam: Present: normal appearance, PERRL, EOMI. Absent: scleral icterus, conjunctival injection, periorbital swelling ENT exam: Present: normal exam, normal oropharynx, mucous membranes moist, TM's normal bilaterally, normal external ear exam Neck exam: Present: normal inspection, full ROM. Absent: tenderness, meningismus, lymphadenopathy Respiratory exam: Present: normal lung sounds bilaterally. Absent: respiratory distress, wheezes, rales, rhonchi, stridor Cardiovascular Exam: Present: regular rate, normal rhythm, normal heart sounds. Absent: systolic murmur, diastolic murmur, rubs, gallop, clicks GI/Abdominal exam: Present: soft, normal bowel sounds. Absent: distended, tenderness, guarding, rebound, rigid Neurological exam: Present: alert, oriented X3, CN II-XII intact, reflexes normal, other (Finger to nose intact bilaterally). Absent: motor sensory deficit Psychiatric exam: Present: normal affect, normal mood Skin exam: Present: warm, dry, intact, normal color. Absent: rash Course Vital Signs 12/30/18 09:05 Temperature 97.6 F Pulse Rate 97 Respiratory 20 Rate Blood Pressure 135/92 O2 Sat by Pulse 97 Oximetry EKG Findings - EKG Comments: EKG Findings:: EKG performed at 9:17 normal sinus rhythm rate of 84 ME 122/78 QT/QTC 378/446 Medical Decision Making - Medical Decision Making 48-year-old female presented for dizziness and chest discomfort. Patient symptoms are persistent. Patient continues to have dizziness CT was obtained which is unremarkable laboratory unremarkable. Patient will be admitted for intractable dizziness, chest pain for further evaluation. - Lab Data Result diagrams: 12/30/18 09:25 12/30/18 09:25 Lab Results 12/30/18 12/30/18 12/30/18 Range/Units 09:25 09:25 09:25 WBC 13.0 H (3.8-10.6) k/uL RBC 5.06 (3.80-5.40) m/uL Hgb 13.8 (11.4-16.0) gm/dL Hct 42.8 (34.0-46.0) % MCV 84.7 (80.0-100.0) fL MCH 27.3 (25.0-35.0) pg MCHC 32.3 (31.0-37.0) g/dL RDW 14.2 (11.5-15.5) % Plt Count 330 (150-450) k/uL Neutrophils % 77 % Lymphocytes % 16 % Monocytes % 5 % Eosinophils % 2 % Basophils % 0 % Neutrophils # 10.0 H (1.3-7.7) k/uL Lymphocytes # 2.0 (1.0-4.8) k/uL Monocytes # 0.6 (0-1.0) k/uL Eosinophils # 0.2 (0-0.7) k/uL Basophils # 0.1 (0-0.2) k/uL PT (9.0-12.0) sec INR (<1.2) APTT (22.0-30.0) sec Sodium 137 (137-145) mmol/L Potassium 4.2 (3.5-5.1) mmol/L Chloride 103 (98-107) mmol/L Carbon Dioxide 24 (22-30) mmol/L Anion Gap 10 mmol/L BUN 16 (7-17) mg/dL Creatinine 0.67 (0.52-1.04) mg/dL Est GFR (CKD-EPI)AfAm >90 (>60 ml/min/1.73 sqM) Est GFR (CKD-EPI)NonAf >90 (>60 ml/min/1.73 sqM) Glucose 105 H (74-99) mg/dL Calcium 9.3 (8.4-10.2) mg/dL Magnesium 2.0 (1.6-2.3) mg/dL Total Bilirubin 0.8 (0.2-1.3) mg/dL AST 21 (14-36) U/L ALT 20 (9-52) U/L Alkaline Phosphatase 97 (38-126) U/L Troponin I (0.000-0.034) ng/mL NT-Pro-B Natriuret Pep 114 pg/mL Total Protein 6.8 (6.3-8.2) g/dL Albumin 4.1 (3.5-5.0) g/dL 12/30/18 12/30/18 Range/Units 09:25 09:25 WBC (3.8-10.6) k/uL RBC (3.80-5.40) m/uL Hgb (11.4-16.0) gm/dL Hct (34.0-46.0) % MCV (80.0-100.0) fL MCH (25.0-35.0) pg MCHC (31.0-37.0) g/dL RDW (11.5-15.5) % Plt Count (150-450) k/uL Neutrophils % % Lymphocytes % % Monocytes % % Eosinophils % % Basophils % % Neutrophils # (1.3-7.7) k/uL Lymphocytes # (1.0-4.8) k/uL Monocytes # (0-1.0) k/uL Eosinophils # (0-0.7) k/uL Basophils # (0-0.2) k/uL PT 9.3 (9.0-12.0) sec INR 0.8 (<1.2) APTT 22.4 (22.0-30.0) sec Sodium (137-145) mmol/L Potassium (3.5-5.1) mmol/L Chloride (98-107) mmol/L Carbon Dioxide (22-30) mmol/L Anion Gap mmol/L BUN (7-17) mg/dL Creatinine (0.52-1.04) mg/dL Est GFR (CKD-EPI)AfAm (>60 ml/min/1.73 sqM) Est GFR (CKD-EPI)NonAf (>60 ml/min/1.73 sqM) Glucose (74-99) mg/dL Calcium (8.4-10.2) mg/dL Magnesium (1.6-2.3) mg/dL Total Bilirubin (0.2-1.3) mg/dL AST (14-36) U/L ALT (9-52) U/L Alkaline Phosphatase (38-126) U/L Troponin I <0.012 (0.000-0.034) ng/mL NT-Pro-B Natriuret Pep pg/mL Total Protein (6.3-8.2) g/dL Albumin (3.5-5.0) g/dL Disposition Clinical Impression: Chest pain, Dizziness Disposition: ADMITTED IP TO THIS [facility] Condition: Fair Referrals: Farhan Leonardo DO [Primary Care Provider] - 1-2 days
[2018-12-30 09:43] LABS: Basophils # (A) 0.1 k/uL (0-0.2); Basophils % (A) 0 %; Eosinophils # (A) 0.2 k/uL (0-0.7); Eosinophils % (A) 2 %; HCT 42.8 % (34.0-46.0); HGB 13.8 gm/dL (11.4-16.0); Lymphocytes % (A) 16 %; MCH 27.3 pg (25.0-35.0); MCHC 32.3 g/dL (31.0-37.0); MCV 84.7 fL (80.0-100.0); Mean Platelet Volume 7.7; Monocytes # (A) 0.6 k/uL (0-1.0); Monocytes % (A) 5 %; Neutrophils % (A) 77 %; Platelet Count 330 k/uL (150-450); RBC 5.06 m/uL (3.80-5.40); RDW 14.2 % (11.5-15.5)
--- NOTE | 2018-12-30 09:49 | XR ---
EXAMINATION TYPE: XR chest 2V DATE OF EXAM: 12/30/2018 COMPARISON: 12/08/2018 TECHNIQUE: PA and lateral views submitted. HISTORY: Chest pain FINDINGS: The lungs are clear and there is no pneumothorax, pleural effusion, or focal pneumonia. Hypertrophi c change of the spine. IMPRESSION: 1. No acute process.
[2018-12-30 09:51] LABS: ALT 20 U/L (9-52); AST 21 U/L (14-36); African American GFR (CKD) >90 (>60 ml/min/1.73 sqM); Albumin 4.1 g/dL (3.5-5.0); Alkaline Phosphatase 97 U/L (38-126); Anion Gap 10 mmol/L; Blood Urea Nitrogen 16 mg/dL (7-17); Calcium 9.3 mg/dL (8.4-10.2); Carbon Dioxide 24 mmol/L (22-30); Chloride 103 mmol/L (98-107); Glucose 105 mg/dL (74-99); INR 0.8 (<1.2); Partial Thromboplastin Time 22.4 sec (22.0-30.0); Prothrombin Time 9.3 sec (9.0-12.0); Sodium 137 mmol/L (137-145); Total Bilirubin 0.8 mg/dL (0.2-1.3); Total Protein 6.8 g/dL (6.3-8.2)
--- NOTE | 2018-12-30 09:56 | CT ---
EXAMINATION TYPE: CT brain wo con DATE OF EXAM: 12/30/2018 COMPARISON: None HISTORY: Dizziness with nausea. CT DLP: 1075.[address] of the brain was performed. The ventricles, basal cisterns and sulci overlying the cerebral convexities demonstrate a normal appe arance. There is no evidence for intracranial hemorrhage or sulcal effacement. No mass effects are seen. Osseous calvarium is intact. If symptoms persist consider MRI as clinically warranted. IMPRESSION: 1. No acute intracranial process is seen at this time.
[2018-12-30 10:03] LABS: Potassium 4.2 mmol/L (3.5-5.1)
[2018-12-30] MEDS ORDERED: METOCLOPRAMIDE 5 MG/ML 2 ML VIAL IVP STA (10:18)
[2018-12-30] MEDS ORDERED: HEPARIN SODIUM,PORCINE 5,000 UNIT/ML 1 ML VIAL IV ONE (11:07)
[2018-12-30] MEDS ORDERED: NITROGLYCERIN SL TABS 0.4 MG TAB SUBLINGUAL PRN (11:07)
[2018-12-30] MEDS ORDERED: ASPIRIN 81 MG PO STA (11:07)
[2018-12-30] MEDS: HEPARIN SOD,PORK IN 0.45% NACL 25,000 UNIT in 0.45% NACL 1 250ML.BAG IV SCH (12:09)
[2018-12-30] MEDS ORDERED: TEMAZEPAM 15 MG CAP PO PRN (18:45)
[2018-12-30] MEDS ORDERED: ALPRAZolam 0.25 MG TAB PO PRN (18:45)
[2018-12-30] MEDS ORDERED: SODIUM CHLORIDE 0.9% 1,000 ML IV SCH (19:00)
--- NOTE | 2018-12-30 19:28 | HP ---
HISTORY AND PHYSICAL DATE OF SERVICE: 12/30/2018 CHIEF COMPLAINTS: Dizziness and chest pain. HISTORY OF PRESENT ILLNESS: This 48-year-old woman with a past medical history of multiple medical problems, including hyperlipidemia, hypothyroidism, pelvic, back surgery, DJD, being followed by Dr. Leonardo in the outpatient setting, is complaining of left- sided sharp chest pain. The patient was evaluated recently and had a stress test, which was a stress echo, which showed decreased exercise tolerance with a normal response to stress and no evidence of stress-induced ischemia. A 2D echo with Doppler was also done at that time which showed an ejection fraction about 55% to 60%. Currently the patient is complaining of some dizziness and vertigo for the last 2 days which are increasing today. The patient came to [facility] and was admitted for further evaluation. The patient was hardly able to drive to her workplace today. There is no history of any fever, rigor or chills. No history of headache, loss of consciousness, seizures. PAST MEDICAL HISTORY: 1. History of hypertension. 2. History of hypothyroidism. 3. History of pelvic pain. 4. History of cystocele. 5. Back surgery. 6. DJD. MEDICATIONS: Home medications are levothyroxine 150 mcg p.o. daily. ALLERGIES: INFLUENZA VIRUS VACCINE. FAMILY HISTORY: History of emphysema, history of DVT. SOCIAL HISTORY: Previous history of smoking. No current smoking or alcohol intake. REVIEW OF SYSTEMS: ENT: No diminished hearing. No diminished vision. CARDIOVASCULAR SYSTEM: No angina, palpitations. RESPIRATORY SYSTEM: As mentioned earlier. GI: No nausea, vomiting. : No dysuria or retention. NERVOUS SYSTEM: No numbness, weakness. ALLERGY/IMMUNOLOGY: No asthma, hayfever. MUSCULOSKELETAL: As mentioned earlier. HEMATOLOGY/ONCOLOGY: Negative. ENDOCRINE: Hypothyroidism. CONSTITUTIONAL: As mentioned earlier. DERMATOLOGY: Negative. RHEUMATOLOGY: Negative. PSYCHIATRY: As mentioned earlier. PHYSICAL EXAMINATION: Patient alert and oriented x3. Pulse 83, blood pressure 93/63, respiration 18, temperature 97.8, pulse ox 95% on room air. HEENT: Conjunctivae normal. Oral mucosa moist. NECK: No jugular venous distention. No carotid bruit. No lymph node enlargement. CARDIOVASCULAR SYSTEM: S1, S2 muffled. RESPIRATORY SYSTEM: Breath sounds diminished at the bases. No rhonchi. No crackles. ABDOMEN: Soft, non-tender. No mass palpable. LEGS: No edema. No swelling. NERVOUS SYSTEM: Higher functions as mentioned earlier. Moves all 4 limbs. No focal motor or sensory deficit. LYMPHATICS: No lymph node palpable in neck, axillae or groin. SKIN: No ulcer, rash, bleeding. JOINTS: No active deforming arthropathy. LABS: WBC 13, hemoglobin 13.8. ASSESSMENT: 1. Dizziness and vertigo for evaluation. 2. Left-sided chest pain with recent negative stress echocardiogram. 3. Increased white count. 4. Relative hypotension. 5. Hyperlipidemia. 6. Hypothyroidism. 7. History of pelvic pain. 8. History of degenerative joint disease. 9. History of uterine ablation. 10.Remote history of nicotine dependence. 11.Obesity with body mass index of 35.9. RECOMMENDATIONS AND DISCUSSION: In this 48-year-old woman who presented with multiple medical issues, we will monitor the patient closely, continue the current management, continue with symptomatic treatment. Otherwise at this time I would recommend cardiology consultation because of recurrence of chest pain. I would also recommend orthostatic vitals. Will also recommend IV fluids. Continue to monitor. Guarded prognosis because of multiple complex medical issues. I also recommend neurovascular workup, including carotid ultrasound. A CT scan of the brain did not show any acute abnormality. Further recommendations to follow. A copy of this dictation is being forwarded to Dr. Leonardo, who is the primary physician. TROY / JAE: [id number] / MTDD
[2018-12-30] MEDS ORDERED: HEPARIN SODIUM,PORCINE 5,000 UNIT/ML 1 ML VIAL IV PRN (20:12)
--- NOTE | 2018-12-30 21:02 | US ---
EXAMINATION TYPE: US carotid duplex BILAT DATE OF EXAM: 12/30/2018 COMPARISON: NONE CLINICAL HISTORY: tia??. dizziness. No HTN. No hx of TIA or stroke. EXAM MEASUREMENTS: RIGHT: Peak Systolic Velocity (PSV) cm/sec ----- Right CCA: 100.7 ----- Right ICA: 117.3 ----- Right ECA: 95.3 ICA/CCA ratio: 1.2 RIGHT: End Diastole cm/sec ----- Right CCA: 30.3 ----- Right ICA: 52.5 ----- Right ECA: 9.8 LEFT: Peak Systolic Velocity (PSV) cm/sec ----- Left CCA: 101.7 ----- Left ICA: 87.5 ----- Left ECA: 91.9 ICA/CCA ratio: 0.9 LEFT: End Diastole cm/sec ----- Left CCA: 26.7 ----- Left ICA: 33.6 ----- Left ECA: 9.5 VERTEBRALS (direction of flow): Right Vertebral: Antegrade Left Vertebral: Antegrade Rhythm: Normal No plaque, wall thickening or elevated velocities. Slightly elevated left CCA velocities. IMPRESSION: There is antegrade flow in the vertebral arteries. The images and measurements suggest c lose to 0% stenosis in both internal carotid arteries. Criteria for Assigning % of Stenosis / Diameter reduction (Estimation based on the indirect measurements of the internal carotid artery velocities (ICA PSV). 1. Normal (no stenosis)=ICA PSV < 125 cm/s: ratio < 2.0: ICA EDV<40 cm/s. 2. Less than 50% stenosis=ICA PSV < 125 cm/s: ratio < 2.0: ICA EDV<40 cm/s. 3. 50 to 69% stenosis=ICA PSV of 125 to 230 cm/s: ration 2.0 ? 4.0: ICA EDV 40-100 cm/s. 4. Greater than 70% stenosis to near occlusion= ICA PSV > 230 cm/s: ratio > 4.0: ICA EDV > 100 cm/s. 5. Near occlusion= ICA PSV velocities may be low or undetectable: variable ratio and ICA EDV. 6. Total occlusion=unable to detect flow.
[2018-12-30] MEDS: MECLIZINE 12.5 MG TAB PO SCH ×2 (21:11→21:23)
[2018-12-31 03:36] LABS: Basophils # (A) 0.1 k/uL (0-0.2); Basophils % (A) 1 %; Eosinophils # (A) 0.3 k/uL (0-0.7); Eosinophils % (A) 2 %; HCT 39.3 % (34.0-46.0); HGB 12.5 gm/dL (11.4-16.0); Hypochromasia Slight; Lymphocytes # (A) 3.2 k/uL (1.0-4.8); Lymphocytes % (A) 28 %; MCH 27.6 pg (25.0-35.0); MCHC 31.8 g/dL (31.0-37.0); MCV 86.9 fL (80.0-100.0); Mean Platelet Volume 7.6; Monocytes # (A) 0.5 k/uL (0-1.0); Monocytes % (A) 4 %; Neutrophils # (A) 7.4 k/uL (1.3-7.7); Neutrophils % (A) 64 %; Platelet Count 281 k/uL (150-450); RBC 4.52 m/uL (3.80-5.40); RDW 14.6 % (11.5-15.5); WBC 11.6 k/uL (3.8-10.6)
[2018-12-31 03:59] LABS: African American GFR (CKD) >90 (>60 ml/min/1.73 sqM); Anion Gap 6 mmol/L; Blood Urea Nitrogen 13 mg/dL (7-17); Calcium 8.4 mg/dL (8.4-10.2); Carbon Dioxide 24 mmol/L (22-30); Chloride 107 mmol/L (98-107); Cholesterol 178 mg/dL (<200); Glucose 91 mg/dL (74-99); HDL Cholesterol 49 mg/dL (40-60); LDL Cholesterol,Calculated 106 mg/dL (0-99); Sodium 137 mmol/L (137-145); Triglycerides 115 mg/dL (<150)
[2018-12-31] MEDS ORDERED: LEVOTHYROXINE 75 MCG TAB PO SCH (06:30)
[2018-12-31] MEDS ORDERED: PANTOPRAZOLE 40 MG TABLET PO SCH (07:30)
[2018-12-31] MEDS ORDERED: ASPIRIN 325 MG TAB PO SCH (09:00)
--- NOTE | 2018-12-31 09:03 | P.CRDCN ---
History of Present Illness Consult date: 12/31/18 History of present illness: This is a 48-year-old female with history of degenerative joint disease and also hypercholesterolemia who works at the [employer] [facility] in [place]. This patient was here in the hospital in November with complaints of chest pain and had a stress echocardiogram and surface echocardiogram which showed normal findings. Patient now came mainly with complaints of dizziness and spinning sensation suggestive of vertigo. Patient denied any tinnitus or hearing loss, or recent upper respiratory infections. She is treated with meclizine with relief of her sym ptoms to large extent. In addition to the vertigo, Patient is also complaining of some sharp and tight feeling in the chest. Her EKGs and cardiac enzymes are negative. Carotid duplex study did not reveal any obstructive disease. Computed tomography scan of the brain is negative. Her symptoms of chest pain, appeared to be atypical with normal stress echo recently. We discussed the possibility of a doing cardiac catheterization for definitive diagnosis. Patient doesn't want to have any procedures at this time. No further cardiac workup is suggested. When medically stable, patient could be discharged home. Follow-up as an outpatient Review of Systems As per the chart Past Medical History Past Medical History: Hyperlipidemia, Thyroid Disorder Additional Past Medical History / Comment(s): PELVIC PAIN. GR 2 CYSTOCELE History of Any Multi-Drug Resistant Organisms: None Reported Past Surgical History: Appendectomy, Back Surgery, Hysterectomy, Tonsillectomy Additional Past Surgical History / Comment(s): uterine ablation. LAMINECTOMY Past Anesthesia/Blood Transfusion Reactions: Motion Sickness Past Psychological History: No Psychological Hx Reported Smoking Status: Former smoker Past Alcohol Use History: None Reported Past Drug Use History: None Reported - Past Family History Father Family Medical History: Deep Vein Thrombosis (DVT) Mother Additional Family Medical History / Comment(s): Emphysema, patient states mother passed when she was 68. Medications and Allergies Home Medications Medication Instructions Recorded Confirmed Type Levothyroxine Sodium [Synthroid] 150 mcg PO DAILY 03/24/16 12/30/18 History Allergies Allergy/AdvReac Type Severity Reaction Status Date / Time influenza virus vaccine, Allergy Unknown Verified 12/30/18 09:07 specific [influenza virus vacc,specific] Physical Exam Vitals: Vital Signs Temp Pulse Pulse Pulse Pulse Pulse Pulse 12/31/18 04:00 97.9 F 75 12/30/18 23:31 98.2 F 94 104 H 88 12/30/18 19:27 98.8 F 82 12/30/18 16:22 97.8 F 83 12/30/18 16:00 84 82 12/30/18 12:27 97.6 F 82 12/30/18 12:00 84 82 12/30/18 11:40 98.4 F 84 12/30/18 10:30 84 12/30/18 09:05 97.6 F 97 Resp BP BP BP BP BP Pulse Ox 12/31/18 04:00 16 121/71 97 12/30/18 23:31 16 160/81 154/90 143/69 97 12/30/18 19:27 16 126/72 96 12/30/18 16:22 18 93/63 95 12/30/18 16:00 18 12/30/18 12:27 18 127/84 98 12/30/18 12:00 18 12/30/18 11:40 18 104/76 98 12/30/18 10:30 12/30/18 09:05 20 135/92 97 Intake and Output 12/30/18 12/31/18 12/31/18 22:59 06:59 14:59 Intake Total 89.287 Balance 89.287 Intake: Intake, IV Titration 89.287 Amount Heparin Sod,Pork in 0.45% 89.287 NaCl 25,000 unit In 0.45 % NaCl 1 250ml.bag @ 8.7 UNITS/KG/HR 9.866 mls/hr IV .Q24H [facility] Rx#: [id number] Other: Voiding Method Toilet Toilet # Voids 1 2 GENERAL EXAM: Patient is alert and oriented and doesn't appear to be in any acute distress HEENT: Normocephalic. Normal reaction of pupils, equal size, normal range of extraocular motion. No erythema or exudates in the throat. NECK: No masses, no nuchal rigidity. CHEST: No chest wall deformity. LUNGS: Equal air entry with no crackles or wheeze. HEART: S1 and S2 normal with no audible mumurs or gallops. Regular rhythm, femorals equal on both sides.. ABDOMEN: No hepatosplenomegaly, normal bowel sounds, no guarding or rigidity. SKIN: No rashes CENTRAL NERVOUS SYSTEM: No focal deficits. EXTREMITIES: No cyanosis, clubbing or edema. Results 12/31/18 03:17 12/31/18 03:17 Cardiac Enzymes 12/30/18 12/30/18 12/30/18 Range/Units 09:25 09:25 15:33 AST 21 (14-36) U/L Troponin I <0.012 <0.012 (0.000-0.034) ng/mL 12/30/18 Range/Units 22:18 AST (14-36) U/L Troponin I <0.012 (0.000-0.034) ng/mL Coagulation 12/30/18 12/30/18 12/31/18 Range/Units 09:25 18:55 03:17 PT 9.3 (9.0-12.0) sec APTT 22.4 31.2 H 59.8 H (22.0-30.0) sec Lipids 12/31/18 Range/Units 03:17 Triglycerides 115 (<150) mg/dL Cholesterol 178 (<200) mg/dL HDL Cholesterol 49 (40-60) mg/dL CBC 12/30/18 12/31/18 Range/Units 09:25 03:17 WBC 13.0 H 11.6 H (3.8-10.6) k/uL RBC 5.06 4.52 (3.80-5.40) m/uL Hgb 13.8 12.5 (11.4-16.0) gm/dL Hct 42.8 39.3 (34.0-46.0) % Plt Count 330 281 (150-450) k/uL Comprehensive Metabolic Panel 12/30/18 12/31/18 Range/Units 09:25 03:17 Sodium 137 137 (137-145) mmol/L Potassium 4.2 4.0 (3.5-5.1) mmol/L Chloride 103 107 (98-107) mmol/L Carbon Dioxide 24 24 (22-30) mmol/L BUN 16 13 (7-17) mg/dL Creatinine 0.67 0.66 (0.52-1.04) mg/dL Glucose 105 H 91 (74-99) mg/dL Calcium 9.3 8.4 (8.4-10.2) mg/dL AST 21 (14-36) U/L ALT 20 (9-52) U/L Alkaline Phosphatase 97 (38-126) U/L Total Protein 6.8 (6.3-8.2) g/dL Albumin 4.1 (3.5-5.0) g/dL Current Medications Generic Name Dose Route Start Last Admin Trade Name Tammy PRN Reason Stop Dose Admin Alprazolam 0.25 mg 12/30/18 18:45 Xanax PO TID PRN Anxiety Aspirin 325 mg 12/31/18 09:00 Aspirin PO DAILY [facility] Heparin Sodium (Porcine) 0 unit 12/30/18 20:12 12/30/18 21:14 Heparin IV 4,000 unit PER PROTOCOL PRN Administration Low PTT Protocol Heparin Sodium/Sodium Chloride 250 mls @ 9.866 mls/hr 12/30/18 11:15 12/30/18 21:12 25,000 unit/ Sodium Chloride IV 11.7 units/kg/hr .Q24H [facility]AN 13.268 mls/hr Titration Protocol 8.7 UNITS/KG/HR Sodium Chloride 1,000 mls @ 75 mls/hr 12/30/18 19:00 12/30/18 21:11 Saline 0.9% IV 75 mls/hr .[id number] ALAN Administration Levothyroxine Sodium 150 mcg 12/31/18 06:30 12/31/18 06:11 Synthroid PO 150 mcg DAILY@0630 ALAN Administration Meclizine HCl 12.5 mg 12/30/18 18:45 12/30/18 21:23 Antivert PO Not Given TID [facility] Nitroglycerin 0.4 mg 12/30/18 11:07 Nitrostat SUBLINGUAL Q5M PRN Chest Pain Pantoprazole Sodium 40 mg 12/31/18 07:30 Protonix PO AC-BRKFST [facility] Temazepam 15 mg 12/30/18 18:45 Restoril PO HS PRN Insomnia Intake and Output 12/30/18 12/31/18 12/31/18 22:59 06:59 14:59 Intake Total 89.287 Balance 89.287 Intake: Intake, IV Titration 89.287 Amount Heparin Sod,Pork in 0.45% 89.287 NaCl 25,000 unit In 0.45 % NaCl 1 250ml.bag @ 8.7 UNITS/KG/HR 9.866 mls/hr IV .Q24H [facility] Rx#: [id number] Other: Voiding Method Toilet Toilet # Voids 1 2 12/31/18 03:17 12/31/18 03:17 EKG Interpretations (text) Sinus rhythm Assessment and Plan (1) Vertigo Current Visit: Yes Status: Acute Code(s): R42 - DIZZINESS AND GIDDINESS SNOMED Code(s): 581291431 (2) Chest pain Current Visit: Yes Status: Acute Code(s): R07.9 - CHEST PAIN, UNSPECIFIED SNOMED Code(s): 26355821 (3) Hypercholesterolemia Current Visit: No Status: Acute Code(s): E78.00 - PURE HYPERCHOLESTEROLEMIA, UNSPECIFIED SNOMED Code(s): 51658332 (4) Hypothyroidism Current Visit: No Status: Acute Code(s): E03.9 - HYPOTHYROIDISM, UNSPECIFIED SNOMED Code(s): 49267856 Plan: Her symptom of vertigo has improved with meclizine. EKGs and cardiac enzymes are negative. Recent stress echo is negative. No further cardiac workup at this time. Follow-up as an outpatient
[2018-12-31] MEDS: MECLIZINE 12.5 MG TAB PO SCH (09:42)
[2018-12-31 12:17] VITALS: BP 107/66; PULSE 95; RESP 16; TEMP 98.4
[2018-12-31] MEDS: HEPARIN SOD,PORK IN 0.45% NACL 25,000 UNIT in 0.45% NACL 1 250ML.BAG IV SCH (12:18)
--- NOTE | 2018-12-31 23:08 | DS ---
DISCHARGE SUMMARY DATE IS SERVICE: 12/31/2018. FINAL DIAGNOSES: 1. Dizziness and vertigo for evaluation possible benign positional vertigo. 2. Orthostatic hypotension. 3. Left-sided chest pain with negative stress echo recently. 4. Increased WBC. 5. Hyperlipidemia. 6. Hypothyroidism. 7. History of pelvic pain. 8. History of degenerative joint disease. 9. Uterine ablation. 10.Remote history of nicotine dependence. 11.Obesity with body mass index of 35.9. DISCHARGE DISPOSITION: The patient will be discharged in stable condition with guarded prognosis. HISTORY OF PRESENT ILLNESS: This 48-year-old woman with a past medical history of multiple medical problems admitted with vertigo and as well as dizziness. The patient was treated symptomatically. Patient improved significantly. As mentioned, the patient was mildly orthostatic and Cardiology saw the patient and recommended the patient for outpatient followup. On exam, vitals are stable. Cardiovascular S1, S2. Abdomen soft. Nervous System: No focal deficits. Labs: WBC 11.6 and cholesterol, LDL is 106, otherwise within normal limits. DISCHARGE ADVICE AND MEDICATIONS: 1. Diet is cardiac diet. 2. Activity limited until followup. 3. Follow up with Dr. Leonardo in 2-3 days. 4. Follow up with Dr. Vasquez in 1 week. 5. Synthroid 150 mcg p.o. daily. 6. Antivert 12.5 mg t.i.d. and p.r.n. 7. Ecotrin 81 mg p.o. daily. 8. Monitor blood pressure at home and continued monitoring. MMODL / IJN: [id number] /
== END 2018-12-31 13:37 | disposition home or self-care (01) ==
LOC: EC 09:01 → 1SOBS 11:16
PROVIDERS: ADMIT Hospitalist; ATTEND Hospitalist
DX: R42 Dizziness and giddiness (principal); R07.89 Other chest pain; I95.1 Orthostatic hypotension; R11.2 Nausea with vomiting, unspecified; D72.829 Elevated white blood cell count, unspecified; N81.10 Cystocele, unspecified; M19.90 Unspecified osteoarthritis, unspecified site; E78.5 Hyperlipidemia, unspecified; E03.9 Hypothyroidism, unspecified; I10 Essential (primary) hypertension; E78.00 Pure hypercholesterolemia, unspecified; E66.9 Obesity, unspecified; Z68.35 Body mass index [BMI] 35.0-35.9, adult; Z79.890 Hormone replacement therapy; Z88.7 Allergy status to serum and vaccine; Z87.891 Personal history of nicotine dependence; Z90.710 Acquired absence of both cervix and uterus; Z82.5 Family history of asthma and other chronic lower respiratory diseases; Z82.49 Family history of ischemic heart disease and other diseases of the circulatory system
CPT/HCPCS: 96365; 96366 ×2; 96376; 96361; 96375; 99285; 36415; 93005; 83880; 80061; 80053; 80048; 83735; 84484; 85025 ×2; 85610; 85730 ×2; 71046; 93880; 70450; G0378 ×2; J1644 ×2; J2765; J2405

== ENCOUNTER → 2019-05-08 | Outpatient (CLI) | payer MEDICAID ==
--- NOTE | 2019-05-08 10:43 | FL ---
EXAMINATION TYPE: FL barium swallow DATE OF EXAM: 05/08/2019 CLINICAL HISTORY: Gastroesophageal reflux and dysphagia TECHNIQUE: A double contrast esophagram is performed utilizing air and barium. A total of 1 minute and 2 seconds of fluoroscopic time was utilized during procedure. 29 fluoroscopic images were saved d uring the examination. COMPARISON: None FINDINGS: The esophagus shows normal motility and emptying into the stomach. No evidence of hiatal h ernia or stricture noted. No significant gastroesophageal reflux was seen during real time performanc e of this study in the upright position. In the supine position severe intraesophageal reflux was see n to level of the the upper cervical esophagus with delayed transit through the esophagus. No tertiar y contractions seen. IMPRESSION: Severe intraesophageal reflux in the supine position with delayed transit through the eso phagus. No distal stricture, obstruction, or hiatal hernia.
== END | disposition home or self-care (01) ==
LOC: RADUSWWP 09:04
PROVIDERS: ATTEND Family Medicine
DX: K21.9 Gastro-esophageal reflux disease without esophagitis (principal)
CPT/HCPCS: 74220

== ENCOUNTER → 2019-05-10 | Outpatient (CLI) | payer MEDICAID ==
--- NOTE | 2019-05-10 15:29 | XR ---
EXAMINATION TYPE: XR lumbar spine 2 or 3V DATE OF EXAM: 05/10/2019 CLINICAL HISTORY: History of L4-L5 disc surgery. Back pain and right hip pain. TECHNIQUE: Frontal and lateral images of the lumbar spine are obtained. COMPARISON: None FINDINGS: Radiopaque density within the colon overlies the L1 vertebral body on the frontal view obs curing visualization. Hemisacralization of the right lateral aspect of the L5 vertebral body is noted . There are 5 lumbar type vertebral bodies identified. The lumbar spine shows satisfactory alignment without evidence of acute fracture or dislocation. Vertebral body heights are maintained. Interverte bral disc space narrowing is seen at L4-L5 and L5-S1 with multilevel facet arthropathy from L4 throug h S1. The oblique images appear within normal limits. The overlying soft tissue appears unremarkable . IMPRESSION: No acute fracture or malalignment is seen in the lumbar spine. Degenerative disc disease from L4 through S1.
== END | disposition home or self-care (01) ==
LOC: RADXRYALE 15:03
PROVIDERS: ATTEND Family Medicine
DX: M51.37 Other intervertebral disc degeneration, lumbosacral region (principal); M48.07 Spinal stenosis, lumbosacral region; M25.551 Pain in right hip; M25.552 Pain in left hip
CPT/HCPCS: 72100

== ENCOUNTER → 2019-06-14 | Outpatient (CLI) | payer MEDICAID ==
--- NOTE | 2019-06-15 11:40 | MM ---
Reason for exam: screening (asymptomatic). Last mammogram was performed 2 years and 11 months ago. History: Family history of breast cancer in aunt and premenopausal breast cancer in cousin at age 34. Physical Findings: A clinical breast exam by your physician is recommended on an annual basis and results should be correlated with mammographic findings. MG 3D Screening Mammo W/Cad Bilateral CC and MLO view(s) were taken. Prior study comparison: July 15, 2016, bilateral MG 3d screening mammo w/cad. July 18, 2014, bilateral MG screening mammo w CAD. There are scattered fibroglandular densities. There is chronic nodularity in the right breast. There is no discrete abnormality. ASSESSMENT: Negative, BI-RAD 1 RECOMMENDATION: Routine screening mammogram of both breasts in 1 year.
== END | disposition home or self-care (01) ==
LOC: RADMAMWWP 08:44
PROVIDERS: ATTEND Family Medicine
DX: Z12.31 Encounter for screening mammogram for malignant neoplasm of breast (principal)
CPT/HCPCS: 77063; 77067

== ENCOUNTER → 2019-06-14 | Outpatient (CLI) | payer MEDICAID ==
--- NOTE | 2019-06-14 13:51 | P.HPBAR ---
Bariatric H&P - History & Physicial H&P Date: 06/14/19 History & Physicial: Visit/CC: Patient initial contact: Initial weight: Initial weight in pounds: Height: Initial BMI: Last weight: Current weight: Current weight in pounds: Current BMI: Branch body weight (based on NIH guidelines): Excess body weight loss: The patient is a 49 year-old F who presents for Bariatric Assessment. HPI: She is looking into the sleeve gastrectomy and has severe reflux. She reports 20 years and was 140 pounds and now has gained 130 pounds after having 1 child. She has tried Adipex with side effects with heart pacing. She tried [employer] and Weight watchers. She has lost 50 pounds and has re-gained most of her weight with carbs restriction and calorie restriction. She still has gallbladder. No family history of gallbladder disease. She reports dysphagia with food stuck in the chest. She reports improvement of symptoms with Omeprazole. She has not had an upper scope. She reports now increasing her Omeprazole. She has lower back pain with laminectomy with tingling feet, she has right hip pain and is on Celebrex. She reports knee pain. No ankle pain but has feet tingling. She had an appendectomy. Her father had DVTs in the leg and mother of PE. No stomach or esophageal. No IBD in the family. No chronic diarrhea. She has not had a colonoscopy. ASSESSMENT: 1. Morbid obesity PLAN: 1. She is looking into gastrectomy 2. All risks described. Past Medical History Past Medical History: Hyperlipidemia, Thyroid Disorder Additional Past Medical History / Comment(s): PELVIC PAIN. GR 2 CYSTOCELE History of Any Multi-Drug Resistant Organisms: None Reported Past Surgical History: Appendectomy, Back Surgery, Hysterectomy, Tonsillectomy Additional Past Surgical History / Comment(s): uterine ablation. LAMINECTOMY Past Anesthesia/Blood Transfusion Reactions: Motion Sickness Past Psychological History: No Psychological Hx Reported Smoking Status: Former smoker Past Alcohol Use History: None Reported Past Drug Use History: None Reported - Past Family History Father Family Medical History: Deep Vein Thrombosis (DVT) Mother Additional Family Medical History / Comment(s): Emphysema, patient states mother passed when she was 68. Bariatric Checklist Checklist: Plan: Checklist: EGD: 1. Hiatal hernia: 2. H. Pylori: HgbA1c: Vitamin D: Smoking: Former smoker Primary care physician referral: Psychiatry clearance: Cardiology clearance: Sleep study: Diet journal: VTE risk score: VTE risk level: Rehab needs at discharge:
[2019-06-14 14:06] VITALS: BMI 38.3
[2019-06-14 14:47] LABS: HCT 39.1 % (34.0-46.0); HGB 13.5 gm/dL (11.4-16.0); MCH 30.3 pg (25.0-35.0); MCHC 34.6 g/dL (31.0-37.0); MCV 87.6 fL (80.0-100.0); Mean Platelet Volume 8.3; Platelet Count 289 k/uL (150-450); RBC 4.47 m/uL (3.80-5.40); RDW 13.6 % (11.5-15.5); WBC 9.2 k/uL (3.8-10.6)
[2019-06-14 15:04] LABS: INR 0.9 (<1.2); Partial Thromboplastin Time 25.9 sec (22.0-30.0); Prothrombin Time 9.4 sec (9.0-12.0)
[2019-06-14 19:03] LABS: % Iron Saturation 13.2 (12.00-45.00); African American GFR (CKD) 100.3 (60.0-200.0); Albumin 4.4 g/dL (3.80-4.90); Albumin/Globulin Ratio 2.59 (1.60-3.17); Anion Gap 8.4 mmol/L (4.00-12.00); BUN/Creat Ratio 27.5 Ratio (12.00-20.00); Carbon Dioxide 26.6 mmol/L (21.6-31.8); Chol/HDL Ratio 3.95; Globulin 1.7 g/dL (1.6-3.3); LDL Cholesterol,Calculated 128.2 mg/dL (0.0-131.0); Magnesium 1.8 mg/dL (1.5-2.4); Non-African American GFR(CKD) 86.6 (60.0-200.0); Phosphorus 3.3 mg/dL (2.4-5.1); Potassium 3.8 mmol/L (3.5-5.5); Total Bilirubin 0.4 mg/dL (0.3-1.2); Total Protein 6.1 g/dL (6.2-8.2); VLDL Calculation 39.8 mg/dL (5.00-40.00)
[2019-06-14 19:21] LABS: Folate, Serum 22.1 ng/mL
[2019-06-14 20:30] LABS: Hemoglobin A1C 4.7 % (4.0-6.0)
[2019-06-15 12:55] LABS: Zinc, Serum 52 ug/dL (60-130)
[2019-06-16 06:12] LABS: Vitamin A 45 ug/dL (38-106)
== END | disposition home or self-care (01) ==
LOC: BARWHC3 12:41
PROVIDERS: ATTEND Surgery Plastic and Reconstructive Surgery
DX: E66.01 Morbid (severe) obesity due to excess calories (principal); Z68.38 Body mass index [BMI] 38.0-38.9, adult; Z90.49 Acquired absence of other specified parts of digestive tract; Z87.891 Personal history of nicotine dependence; E21.1 Secondary hyperparathyroidism, not elsewhere classified; E89.1 Postprocedural hypoinsulinemia; D50.9 Iron deficiency anemia, unspecified; K90.9 Intestinal malabsorption, unspecified; E55.9 Vitamin D deficiency, unspecified; K76.9 Liver disease, unspecified; N19 Unspecified kidney failure; K50.90 Crohn's disease, unspecified, without complications
CPT/HCPCS: 80053; 80061; 82306; 82525; 82607; 82728; 82746; 83036; 83540; 83550; 83735; 83970; 84100; 84134; 84255; 84425; 84443; 84590; 84630; 85027; 85610; 85730

== ENCOUNTER → 2019-06-26 | Outpatient (CLI) | payer MEDICAID ==
--- NOTE | 2019-06-26 22:58 | MR ---
EXAMINATION TYPE: MR hip RT wo con DATE OF EXAM: 06/26/2019 COMPARISON: None. HISTORY: Pain of Rt Hip Standard multiplanar, multisequence MRI departmental protocol Multiplanar, multisequence images of the pelvis focusing on right hip were acquired. FINDINGS: There is witc-nu-gfqveilw axial joint space loss in both hips with mild acetabular spurring seen bilaterally. Small to moderate size joint effusions are noted bilaterally. Bone marrow signal i ntensity is fairly well maintained without suspicious edema. Femoral head shapes are maintained bilat erally. No serpiginous low T1 signal to suggest avascular necrosis. Mild increased fluid signal level of the greater trochanters bilaterally coronal image 9 for reference. No groin adenopathy. No suspicious fat or bowel-containing groin hernias bilaterally. Muscle bulk sym metrically maintained bilaterally. No suspicious bowel dilatation. Few diverticula in the sigmoid colon are thought present. Uterus susp ected surgically absent. Bladder poorly distended. No pelvic fluid collection is seen. Visualized por tion of the sacroiliac joints are maintained. IMPRESSION: [id number] degenerative changes in right hip fairly symmetric to the opposite left hip as detailed above. Mild to moderate bilateral greater trochanteric bursitis.
--- NOTE | 2019-06-26 23:01 | MR ---
EXAMINATION TYPE: MR lumbar spine wo/w con DATE OF EXAM: 06/26/2019 COMPARISON: Lumbar spine x-ray May 10, 2019 HISTORY: Low back pain, Pain of Rt Hip, Hx of Lspine surgery TECHNIQUE: Multiplanar, multisequence images of the lumbar spine is performed without and with IV contrast, util izing 12.5 mL intravenous Gadavist FINDINGS: Sagittal images of the lumbar spine show vertebral body heights to appear satisfactory. Ali gnment is stable and straightened. There is disc desiccation with advanced disc space narrowing L4-L5 level. There is disc desiccation with moderate disc space narrowing L5-S1 level. The conus medullar is is normal in position and signal ending at L1 level. There is heterogeneous bone uptake to endplat e changes centered L4-L5 level. Mild multilevel anterior spurring. No suspicious postcontrast enhance ment. Axial images show the T12-L1, L1-L2, L2-L3, and L3-L4 levels all to appear within normal limits. Axial images at L4-L5 level shows [id number] facet degenerative changes bilaterally with mild t o moderate posterior spur disc complex minimally effacing the anterior thecal sac and causing mild ri ght anterior inferior neural foraminal narrowing. Left-sided neural foramina patent. Axial images at L5-S1 level mild facet degenerative changes with central disc protrusion but spinal c anal is preserved. Bilateral neural foramina are patent. No suspicious incidental retroperitoneal finding. IMPRESSION: Straightening of the lumbar spine with degenerative changes lower lumbar spine noted as d etailed above.
== END | disposition home or self-care (01) ==
LOC: RADMRIMAIN 20:26
PROVIDERS: ATTEND Family Medicine
DX: M47.26 Other spondylosis with radiculopathy, lumbar region (principal); M47.27 Other spondylosis with radiculopathy, lumbosacral region; M16.11 Unilateral primary osteoarthritis, right hip; M70.61 Trochanteric bursitis, right hip
CPT/HCPCS: 72158; 73721; A9585

== ENCOUNTER 2019-07-17 12:53 | Day surgery (SDC) | payer MEDICAID ==
[2019-07-14 10:40] VITALS: BMI 38.4
--- NOTE | 2019-07-16 21:08 | P.GSHP ---
History of Present Illness H&P Date: 07/17/19 CHIEF COMPLAINT: GERD HISTORY OF PRESENT ILLNESS: The patient is a 49-year-old female who presents reports gastroesophageal reflux disease. Upper endoscopy was offered for further evaluation and management. PAST MEDICAL HISTORY: Please see list. PAST SURGICAL HISTORY: Please see list. MEDICATIONS: Please see list. ALLERGIES: Please see list. SOCIAL HISTORY: No illicit drug use FAMILY HISTORY: No reports of Crohn disease or ulcerative colitis. REVIEW OF ORGAN SYSTEMS: CONSTITUTIONAL: No reports of fevers or chills. GI: Denies any blood in stools or constipation. PHYSICAL EXAM: VITAL SIGNS: Stable GENERAL: Well-developed and pleasant in no acute distress. HEENT: No scleral icterus. Extraocular movements grossly intact. Moist buccal mucosa. NECK: Supple without lymphadenopathy. CHEST: Unlabored respirations. Equal bilateral excursions. CARDIOVASCULAR: Regular rate and rhythm. Distal 2+ pulses. ABDOMEN: Soft, nondistended. MUSCULOSKELETAL: No clubbing, cyanosis, or edema. ASSESSMENT: 1. Gastroesophageal reflux disease PLAN: 1. Recommend proceeding with an upper endoscopy Past Medical History Past Medical History: GERD/Reflux, Hyperlipidemia, Osteoarthritis (OA), Sleep Apnea/CPAP/BIPAP, Thyroid Disorder Additional Past Medical History / Comment(s): NO C PAP USED History of Any Multi-Drug Resistant Organisms: None Reported Past Surgical History: Appendectomy, Back Surgery, Hysterectomy, Tonsillectomy Additional Past Surgical History / Comment(s): uterine ablation. LAMINECTOMY Past Anesthesia/Blood Transfusion Reactions: Motion Sickness Smoking Status: Former smoker - Past Family History Father Family Medical History: Deep Vein Thrombosis (DVT) Mother Family Medical History: Pulmonary Embolus Additional Family Medical History / Comment(s): Emphysema, patient states mother passed when she was 68. Medications and Allergies Home Medications Medication Instructions Recorded Confirmed Type Levothyroxine Sodium [Synthroid] 150 mcg PO DAILY 03/24/16 07/14/19 History Celecoxib [CeleBREX] 200 mg PO DAILY 06/14/19 07/14/19 History Omeprazole [PriLOSEC] 40 mg PO DAILY 06/14/19 07/14/19 History Meclizine [Antivert] 12.5 mg PO TID PRN 07/14/19 07/14/19 History Allergies Allergy/AdvReac Type Severity Reaction Status Date / Time influenza virus vaccine, Allergy PROBLEMS Verified 07/14/19 08:56 specific WITH VOICE [influenza virus " vacc,specific]
[~2019-07-17 12:53] MED LIST changes: -HYDROmorphone 1 MG/ML 1 ML SYRINGE IVP PRN; +LACTATED RINGERS 1,000 ML IV SCH; +LIDOCAINE 1% 20 ML VIAL (10MG/ML) FOR IV START INTRADERMA PRN; -MIDAZOLAM 2 MG/2 ML VIAL IV PRN; -ceFAZolin 2 GM in SODIUM CHLORIDE 0.9% 100 ML IVPB ONE
[2019-07-17 13:26] VITALS: TEMP 97.1
[2019-07-17] MEDS ORDERED: PROPOFOL 10 MG/ML 20 ML VIAL IV ONE (13:30)
[2019-07-17] MEDS ORDERED: LIDOCAINE 1% INJ 10MG/ML (20 ML MDV) ONE (13:30)
--- NOTE | 2019-07-17 13:41 | P.PCN ---
Date of Procedure: 07/17/19 Description of Procedure: PREOPERATIVE DIAGNOSIS: Gastroesophageal reflux disease. Morbid obesity. POSTOPERATIVE DIAGNOSIS: Morbid obesity. Gastritis. Gastroesophageal reflux disease. Diaphragmatic hiatal hernia OPERATION: Esophagogastroduodenoscopy with biopsies along antrum. SURGEON: Ghada Garcia MD ANESTHESIA: MAC. INDICATIONS: The patient is a 49-year-old female who presents with a history of reflux disease. Benefits and risks of the procedure were described. Informed consent was obtained. DESCRIPTION: The patient was brought into the endoscopy suite and laid in the left lateral decubitus position. An Olympus gastroscope was passed along the posterior oropharynx down to the distal esophagus where the squamocolumnar junction was encountered at 36 cm from the incisors. The stomach was entered and no bile reflux was found. Additional findings are listed below. Biopsies with cold f orceps were obtained of the antrum. The first through third portion of the duodenum was examined and unremarkable. Retroflexion of the scope confirmed Hill grade 4 lower esophageal valve. The squamocolumnar junction demonstrated LA grade B erosive esophagitis. The stomach was desufflated. The patient tolerated the procedure well. FINDINGS: Squamocolumnar junction 36 cm from the incisors. Diaphragmatic hiatus at 40 cm. Hiatal hernia, 4 cm Hill grade 4 lower esophageal valve. LA grade B erosive esophagitis. No active duodenitis. Chronic gastritis RECOMMENDATIONS: Upper endoscopy as needed. Recommend hiatal hernia repair with severity of reflux Plan - Discharge Summary Discharge Rx Participant: No New Discharge Prescriptions: No Action Levothyroxine Sodium [Synthroid] 150 mcg PO DAILY Omeprazole [PriLOSEC] 40 mg PO DAILY Celecoxib [CeleBREX] 200 mg PO DAILY Meclizine [Antivert] 12.5 mg PO TID PRN PRN Reason: VERTIGO Discharge Medication List Levothyroxine Sodium [Synthroid] 150 mcg PO DAILY 03/24/16 [History] Celecoxib [CeleBREX] 200 mg PO DAILY 06/14/19 [History] Omeprazole [PriLOSEC] 40 mg PO DAILY 06/14/19 [History] Meclizine [Antivert] 12.5 mg PO TID PRN 07/14/19 [History] [facility]ment[facility] [place] [facility] - 07/[facility]19 Patient Instructions/Handouts: Hiatal Hernia (DC) Discharge Disposition: HOME SELF-CARE
[2019-07-17 14:02] VITALS: RESP 16
[2019-07-17 14:14] VITALS: BP 127/89; PULSE 83
== END 2019-07-17 14:19 | disposition home or self-care (01) ==
LOC: ORWHC2ENDO 12:53
PROVIDERS: ATTEND Surgery Plastic and Reconstructive Surgery
DX: K29.50 Unspecified chronic gastritis without bleeding (principal); B96.81 Helicobacter pylori [H. pylori] as the cause of diseases classified elsewhere; K21.0 Gastro-esophageal reflux disease with esophagitis; K44.9 Diaphragmatic hernia without obstruction or gangrene; E78.5 Hyperlipidemia, unspecified; E66.01 Morbid (severe) obesity due to excess calories; G47.33 Obstructive sleep apnea (adult) (pediatric); M19.90 Unspecified osteoarthritis, unspecified site; E07.9 Disorder of thyroid, unspecified; Z79.890 Hormone replacement therapy; Z79.899 Other long term (current) drug therapy; Z88.7 Allergy status to serum and vaccine; Z90.49 Acquired absence of other specified parts of digestive tract; Z98.890 Other specified postprocedural states; Z90.710 Acquired absence of both cervix and uterus; Z87.891 Personal history of nicotine dependence; Z82.49 Family history of ischemic heart disease and other diseases of the circulatory system; Z82.5 Family history of asthma and other chronic lower respiratory diseases; Z68.38 Body mass index [BMI] 38.0-38.9, adult
CPT/HCPCS: 88305; 88342; 43239; J2001; J2704

== ENCOUNTER 2019-07-31 08:59 | Emergency (ER) | payer MEDICAID ==
[2019-07-31 09:04] VITALS: TEMP 97.9
[2019-07-31] MEDS ORDERED: DIAZEPAM 5 MG/ML 2 ML INJ IVP STA (09:35)
[2019-07-31] MEDS ORDERED: MECLIZINE 25 MG TAB PO STA (09:35)
[2019-07-31] MEDS ORDERED: METOCLOPRAMIDE 5 MG/ML 2 ML VIAL IVP STA (09:36)
[2019-07-31] MEDS ORDERED: SODIUM CHLORIDE 0.9% 1,000 ML IV ONE (09:37)
--- NOTE | 2019-07-31 09:40 | ED ---
General Adult HPI - General Chief complaint: Dizziness Stated complaint: vertigo/vomiting Time Seen by Provider: 07/31/19 09:00 Source: patient, RN notes reviewed, old records reviewed Mode of arrival: wheelchair Limitations: no limitations - History of Present Illness Initial comments: This is a 49-year-old female presents emergency Department with a past medical history significant for vertigo. Patient states she was in bed this morning when she pulled over she had the sense that her whole body was moving. Patient states she still feels that she's spinning. Patient denies any headache. Patient denies numbness weakness. Patient states this is typical of her vertigo. Patient states movement definitely makes it worse. Patient states that her eyes and staying still makes it better. Patient states she's also been very nauseated has been vomiting since it started. Patient denies any fever chills per patient denies palpitation. Patient denies any chest pain or difficulty breathing. Patient has normal pain patient denies nausea vomiting diarrhea. Patient states she's had similar symptoms and has been previously worked up for this in the past. - Related Data Home Medications Medication Instructions Recorded Confirmed Levothyroxine Sodium [Synthroid] 150 mcg PO DAILY 03/24/16 07/14/19 Celecoxib [CeleBREX] 200 mg PO DAILY 06/14/19 07/14/19 Omeprazole [PriLOSEC] 40 mg PO DAILY 06/14/19 07/14/19 Meclizine [Antivert] 12.5 mg PO TID PRN 07/14/19 07/14/19 Previous Rx's Medication Instructions Recorded Amoxicillin 1,000 mg PO Q12HR #56 cap 07/25/19 Clarithromycin [Biaxin] 500 mg PO Q12HR #28 tablet 07/25/19 Omeprazole [PriLOSEC] 40 mg PO DAILY #90 cap 07/25/19 Meclizine [Antivert] 25 mg PO TID #20 tab 07/31/19 Allergies Allergy/AdvReac Type Severity Reaction Status Date / Time influenza virus vaccine, Allergy PROBLEMS Verified 07/14/19 08:56 specific WITH VOICE [influenza virus " vacc,specific] Review of Systems ROS Statement: Those systems with pertinent positive or pertinent negative responses have been documented in the HPI. ROS Other: All systems not noted in ROS Statement are negative. Past Medical History Past Medical History: Hyperlipidemia, Thyroid Disorder Additional Past Medical History / Comment(s): PELVIC PAIN. GR 2 CYSTOCELE, hpylori History of Any Multi-Drug Resistant Organisms: None Reported Past Surgical History: Appendectomy, Back Surgery, Hysterectomy, Tonsillectomy Additional Past Surgical History / Comment(s): uterine ablation. LAMINECTOMY Past Anesthesia/Blood Transfusion Reactions: Motion Sickness Past Psychological History: No Psychological Hx Reported Smoking Status: Former smoker Past Alcohol Use History: None Reported Past Drug Use History: None Reported - Past Family History Father Family Medical History: Deep Vein Thrombosis (DVT) Mother Family Medical History: Pulmonary Embolus Additional Family Medical History / Comment(s): Emphysema, patient states mother passed when she was 68. General Exam - General Exam Comments Initial Comments: GENERAL: Patient is well-developed and well-nourished. Patient is nontoxic and well-hyd rated and is in mild distress. ENT: Neck is soft and supple. No significant lymphadenopathy is noted. Oropharynx is clear. Moist mucous membranes. Neck has full range of motion without eliciting any pain. EYES: The sclera were anicteric and conjunctiva were pink and moist. Extraocular movements were intact and pupils were equal round and reactive to light. Eyelids were unremarkable. PULMONARY: Unlabored respirations. Good breath sounds bilaterally. No audible rales rhonchi or wheezing was noted. CARDIOVASCULAR: There is a regular rate and rhythm without any murmurs gallops or rubs. ABDOMEN: Soft and nontender with normal bowel sounds. SKIN: Skin is clear with no lesions or rashes and otherwise unremarkable. NEUROLOGIC: Patient is alert and oriented x3. Cranial nerves II through XII are grossly intact. Motor and sensory are also intact. Normal speech, volume and content. Symmetrical smile. Cerebellar exam [id number] was intact MUSCULOSKELETAL: Normal extremities with adequate strength and full range of motion. No lower extremity swelling or edema. No calf tenderness. LYMPHATICS: No significant lymphadenopathy is noted PSYCHIATRIC: Normal psychiatric evaluation. Limitations: no limitations Course Vital Signs 07/31/19 09:02 Temperature 97.9 F Pulse Rate 91 Respiratory 20 Rate Blood Pressure 151/95 O2 Sat by Pulse 99 Oximetry Medical Decision Making - Medical Decision Making I will back into reevaluate the patient after she received the medications Antivert and Valium and Reglan. Patient states her symptoms were much improved when she just got up to go to the bathroom. Disposition Clinical Impression: Vertigo Disposition: HOME SELF-CARE Condition: Good Instructions (If sedation given, give patient instructions): Vertigo (ED) Prescriptions: Meclizine [Antivert] 25 mg PO TID #20 tab Is patient prescribed a controlled substance at d/c from ED?: No Referrals: Farhan Leonardo DO [Primary Care Provider] - 1-2 days Time of Disposition: 10:52
[2019-07-31] MEDS ORDERED: ONDANSETRON 4 MG ODT STARTER PACK 2 TAB BTL PO STA (10:53)
[2019-07-31 11:00] VITALS: BP 123/74; PULSE 81; RESP 16
== END 2019-07-31 10:57 | disposition home or self-care (01) ==
LOC: EC 08:59
DX: R42 Dizziness and giddiness (principal); R11.2 Nausea with vomiting, unspecified; E07.9 Disorder of thyroid, unspecified; Z79.890 Hormone replacement therapy; Z79.899 Other long term (current) drug therapy; Z88.7 Allergy status to serum and vaccine; Z87.891 Personal history of nicotine dependence
CPT/HCPCS: 99284; 96374; 96375; 96361; J2765; J3360; S0119

== ENCOUNTER 2019-08-06 12:28 | Observation (INO) | payer MEDICAID ==
[2019-08-06] MEDS ORDERED: SODIUM CHLORIDE 0.9% 1,000 ML IV STA (12:53)
[2019-08-06] MEDS ORDERED: MECLIZINE 12.5 MG TAB PO STA (12:53)
[2019-08-06] MEDS ORDERED: DIAZEPAM 5 MG/ML 2 ML INJ IVP STA (12:53)
[2019-08-06] MEDS ORDERED: METOCLOPRAMIDE 5 MG/ML 2 ML VIAL IVP STA (12:54)
[2019-08-06 13:21] LABS: Basophils # (A) 0.2 k/uL (0-0.2); Basophils % (A) 2 %; Eosinophils # (A) 0.1 k/uL (0-0.7); Eosinophils % (A) 1 %; HCT 50.3 % (34.0-46.0); Lymphocytes # (A) 1.2 k/uL (1.0-4.8); Lymphocytes % (A) 15 %; MCH 27.7 pg (25.0-35.0); MCHC 31.9 g/dL (31.0-37.0); Mean Platelet Volume 8.9; Monocytes # (A) 0.4 k/uL (0-1.0); Monocytes % (A) 5 %; Neutrophils # (A) 5.9 k/uL (1.3-7.7); Neutrophils % (A) 75 %; Platelet Count 293 k/uL (150-450); RBC 5.79 m/uL (3.80-5.40); RDW 13.4 % (11.5-15.5); WBC 7.8 k/uL (3.8-10.6)
[2019-08-06 13:28] LABS: ALT 17 U/L (4-34); African American GFR (CKD) >90 (>60 ml/min/1.73 sqM); Anion Gap 12 mmol/L; Blood Urea Nitrogen 16 mg/dL (7-17); Calcium 9.4 mg/dL (8.4-10.2); Carbon Dioxide 20 mmol/L (22-30); Chloride 105 mmol/L (98-107); Glucose 101 mg/dL (74-99); Non-African American GFR(CKD) >90 (>60 ml/min/1.73 sqM); Sodium 137 mmol/L (137-145); Total Bilirubin 0.9 mg/dL (0.2-1.3)
[2019-08-06 13:36] LABS: Potassium 5.1 mmol/L (3.5-5.1)
[2019-08-06 13:37] LABS: AST 35 U/L (14-36); Albumin 4.4 g/dL (3.5-5.0); Alkaline Phosphatase 83 U/L (38-126); Total Protein 7.3 g/dL (6.3-8.2)
[2019-08-06] MEDS ORDERED: ONDANSETRON 4 MG/2 ML VIAL IVP STA (13:58)
[2019-08-06] MEDS ORDERED: diphenhydrAMINE 50 MG/ML 1 ML VIAL IVP STA (13:58)
--- NOTE | 2019-08-06 14:04 | ED ---
Dizziness HPI - General Chief Complaint: Dizziness Stated Complaint: recheck - vertigo Time Seen by Provider: 08/06/19 12:43 Source: family, RN notes reviewed Mode of arrival: wheelchair Limitations: no limitations - History of Present Illness Initial Comments: This a 49-year-old female presents emergency Department with chief complaint of dizziness. She states she was seen here Wednesday was diagnosed with vertigo. Patient states that symptoms are worse than before states that she is unable and because she is so dizzy. She does admit that she has had dizziness in the past and was worked up several years ago by ENT in which she had tilt table test and states that she was diagnosed with vertigo. She states that she's never been this bad. She denies any current headache. She does admit that she's been placed on liquid diet secondary to hiatal hernia scheduled for surgery at than the month by Dr. Garcia . Patient states that she's had no recent URI symptoms. Denies any current chest pain or palpitations. - Related Data Home Medications Medication Instructions Recorded Confirmed Levothyroxine Sodium [Synthroid] 150 mcg PO DAILY 03/24/16 07/31/19 Celecoxib [CeleBREX] 200 mg PO DAILY 06/14/19 07/31/19 Previous Rx's Medication Instructions Recorded Amoxicillin 1,000 mg PO Q12HR #56 cap 07/25/19 Clarithromycin [Biaxin] 500 mg PO Q12HR #28 tablet 07/25/19 Omeprazole [PriLOSEC] 40 mg PO DAILY #90 cap 07/25/19 Meclizine [Antivert] 25 mg PO TID #20 tab 07/31/19 Allergies Allergy/AdvReac Type Severity Reaction Status Date / Time influenza virus vaccine, Allergy PROBLEMS Verified 07/31/19 11:01 specific WITH VOICE [influenza virus " vacc,specific] Review of Systems ROS Statement: Those systems with pertinent positive or pertinent negative responses have been documented in the HPI. ROS Other: All systems not noted in ROS Statement are negative. Past Medical History Past Medical History: Hyperlipidemia, Thyroid Disorder Additional Past Medical History / Comment(s): PELVIC PAIN. GR 2 CYSTOCELE, hpylori, vertigo History of Any Multi-Drug Resistant Organisms: None Reported Past Surgical History: Appendectomy, Back Surgery, Hysterectomy, Tonsillectomy Additional Past Surgical History / Comment(s): uterine ablation. LAMINECTOMY Past Anesthesia/Blood Transfusion Reactions: Motion Sickness Past Psychological History: No Psychological Hx Reported Smoking Status: Former smoker Past Alcohol Use History: None Reported Past Drug Use History: None Reported - Past Family History Father Family Medical History: Deep Vein Thrombosis (DVT) Mother Family Medical History: Pulmonary Embolus Additional Family Medical History / Comment(s): Emphysema, patient states mother passed when she was 68. General Exam Limitations: no limitations General appearance: alert, in no apparent distress Head exam: Present: atraumatic, normocephalic, normal inspection Eye exam: Present: normal appearance, PERRL, EOMI. Absent: scleral icterus, conjunctival injection, periorbital swelling ENT exam: Present: normal exam, normal oropharynx, mucous membranes moist, TM's normal bilaterally Neck exam: Present: normal inspection, full ROM. Absent: tenderness, meningismus, lymphadenopathy Respiratory exam: Present: normal lung sounds bilaterally. Absent: respiratory distress, wheezes, rales, rhonchi, stridor Cardiovascular Exam: Present: regular rate, normal rhythm, normal heart sounds. Absent: systolic murmur, diastolic murmur, rubs, gallop, clicks Neurological exam: Present: alert, oriented X3, CN II-XII intact Course Vital Signs 08/06/19 08/06/19 12:34 14:14 Temperature 98.0 F Pulse Rate 90 71 Respiratory 18 16 Rate Blood Pressure 111/76 134/86 O2 Sat by Pulse 98 98 Oximetry EKG Findings - EKG Comments: EKG Findings:: EKG performed at 13:40 normal sinus rhythm rate of 78 ID 136 QRS 78 QT/QTC 380/442 is inverted T-wave in lead 3, aVF Medical Decision Making - Medical Decision Making 49-year-old female presented for dizziness. Patient had a workup including labs, CT and EKG there are no acute findings at this time though she's had no improvement in her symptoms after Antivert, Reglan, Benadryl, Valium, Zofran. Patient has persistent dizziness though it still vertiginous in nature. Patient be admitted for intractable dizziness for further evaluation. - Lab Data Result diagrams: 08/06/19 13:04 08/06/19 13:02 Lab Results 08/06/19 08/06/19 08/06/19 Range/Units 13:02 13:02 13:04 WBC 7.8 (3.8-10.6) k/uL RBC 5.79 H (3.80-5.40) m/uL Hgb 16.0 (11.4-16.0) gm/dL Hct 50.3 H (34.0-46.0) % MCV 87.0 (80.0-100.0) fL MCH 27.7 (25.0-35.0) pg MCHC 31.9 (31.0-37.0) g/dL RDW 13.4 (11.5-15.5) % Plt Count 293 (150-450) k/uL Neutrophils % 75 % Lymphocytes % 15 % Monocytes % 5 % Eosinophils % 1 % Basophils % 2 % Neutrophils # 5.9 (1.3-7.7) k/uL Lymphocytes # 1.2 (1.0-4.8) k/uL Monocytes # 0.4 (0-1.0) k/uL Eosinophils # 0.1 (0-0.7) k/uL Basophils # 0.2 (0-0.2) k/uL Sodium 137 (137-145) mmol/L Potassium 5.1 (3.5-5.1) mmol/L Chloride 105 (98-107) mmol/L Carbon Dioxide 20 L (22-30) mmol/L Anion Gap 12 mmol/L BUN 16 (7-17) mg/dL Creatinine 0.60 (0.52-1.04) mg/dL Est GFR (CKD-EPI)AfAm >90 (>60 ml/min/1.73 sqM) Est GFR (CKD-EPI)NonAf >90 (>60 ml/min/1.73 sqM) Glucose 101 H (74-99) mg/dL Calcium 9.4 (8.4-10.2) mg/dL Magnesium 2.0 (1.6-2.3) mg/dL Total Bilirubin 0.9 (0.2-1.3) mg/dL AST 35 (14-36) U/L ALT 17 (4-34) U/L Alkaline Phosphatase 83 (38-126) U/L Troponin I <0.012 (0.000-0.034) ng/mL Total Protein 7.3 (6.3-8.2) g/dL Albumin 4.4 (3.5-5.0) g/dL Disposition Clinical Impression: Severe dizziness Narrative: Intractable dizziness Disposition: ADMITTED IP TO THIS HOSP Condition: Fair Referrals: Farhan Leonardo DO [Primary Care Provider] - 1-2 days
--- NOTE | 2019-08-06 14:17 | CT ---
EXAMINATION TYPE: CT brain wo con DATE OF EXAM: 08/06/2019 COMPARISON: Previous study dated 12/30/2018 HISTORY: Intractable dizziness CT DLP: 1099.4 mGycm Automated exposure control for dose reduction was used. FINDINGS: Central structures are midline. There is no evidence of hydrocephalus. No acute focal lesion, mass ef fect or midline shift is seen. I do not see evidence of intracranial blood. Visualized portions of th e paranasal sinuses are clear. There is underaeration of the mastoids which may reflect chronic masto iditis. IMPRESSION: 1. NO ACUTE INTRACRANIAL ABNORMALITY. 2. UNDERAERATION OF THE MASTOIDS MAY REFLECT CHRONIC MASTOIDITIS.
[2019-08-06 14:27] LABS: Appearance,Urine Clear (Clear); Bilirubin,Urine Negative (Negative); Blood,Urine Negative (Negative); Color,Urine Light Yellow; Glucose,Urine (UA) Negative (Negative); Ketones,Urine 2+ (Negative); Leukocyte Esterase,Urine Negative (Negative); Nitrite,Urine Negative (Negative); Protein,Urine Negative (Negative); Urobilinogen,Urine <2.0 mg/dL (<2.0)
[2019-08-06] MEDS ORDERED: NALOXONE 0.4 MG/ML 1 ML VIAL IV PRN (14:34)
[2019-08-06] MEDS ORDERED: ONDANSETRON 4 MG/2 ML VIAL IVP PRN (14:34)
[2019-08-06] MEDS ORDERED: DIAZEPAM 5 MG/ML 2 ML INJ IVP PRN (14:35)
[2019-08-06] MEDS ORDERED: MECLIZINE 25 MG TAB PO PRN (14:35)
[2019-08-06] MEDS: SODIUM CHLORIDE 0.9% 1,000 ML IV SCH ×2 (14:39→21:20)
[2019-08-06] MEDS ORDERED: TEMAZEPAM 15 MG CAP PO PRN (19:33)
[2019-08-06] MEDS ORDERED: ALPRAZolam 0.25 MG TAB PO PRN (19:33)
[2019-08-06 20:23] VITALS: RESP 18
[2019-08-06] MEDS: MECLIZINE 25 MG TAB PO SCH (20:28)
[2019-08-06] MEDS: HEPARIN SODIUM,PORCINE 5,000 UNIT/ML 1 ML VIAL SQ SCH (20:28)
--- NOTE | 2019-08-07 01:16 | HP ---
HISTORY AND PHYSICAL DATE OF SERVICE: 08/06/2019 CHIEF COMPLAINT: Vertigo. HISTORY OF PRESENT ILLNESS: This 49-year-old woman with a past medical history of multiple medical problems including hypertension, hyperlipidemia, history of hypothyroidism, history of H pylori, history of vertigo, history of DJD being followed by Dr. Farhan Leonardo in the outpatient setting, previously had episodes of vertigo, which was thought to be benign positional vertigo. The patient also had orthostatic hypertension treated with tilt- table test during that time. Currently the patient apparently turned herself in the bed and subsequently had severe vertigo, no associated nausea, dizziness, and the patient was taking Antivert p.r.n. The patient was getting some relief on and off, but because of increased symptoms patient came to [facility] and was admitted for evaluation and treatment. Patient also apparently had a maneuver done by a alum mixer at the head office also. There is no history of fever, rigors or chills. No history of headache, loss of consciousness, seizures at this time. Evaluation in the ER showed a brain CT scan was done which showed no acute abnormality differentiation of the mastoid possibly chronic mastoiditis suspected. There is no history of fever, rigors, chills at this time. PAST MEDICAL HISTORY: Previous vertigo as mentioned, hyperlipidemia, hypothyroidism, history of back surgery, DJD. MEDICATIONS ARE: Home medications are: 1. Antivert 25 mg t.i.d. 2. Prilosec 40 mg p.o. daily.. 3. Synthroid 150 mcg p.o. 4. Biaxin 500 mg p.o. b.i.d. 5. Celebrex 200 mg. 6. Oxy 100 mg b.i.d. ALLERGIES: INFLUENZA VACCINE. FAMILY HISTORY: History of DVT, emphysema in the family. 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 No history of smoking. No alcohol intake. REVIEW OF SYSTEMS: ENT mentioned earlier. CARDIOVASCULAR: No angina or palpitations. RESPIRATION: No cough. GI no nausea or vomiting. as mentioned earlier. ALLERGY/IMMUNOLOGY: As mentioned earlier. HEMATOLOGY/ONCOLOGY: No history of anemia. ENDOCRINE: No history of diabetes, hypothyroid. CONSTITUTIONAL: As mentioned earlier. DERMATOLOGY: Negative. RHEUMATOLOGY: Negative. PSYCHIATRIC: As mentioned earlier. PHYSICAL EXAMINATION: Alert and oriented times three. Attentive. Pulse 78, blood pressure 130/70, respirations 16, temperature 97.9, pulse ox 98% on room air. HEENT: Conjunctivae normal. Oral mucosa moist neck is no jugular venous distention. No lymph node enlargement cardiovascular S1 no stenosis pressure in the bases. No rhonchi. No crackles. ABDOMEN: Soft, nontender. No mass palpable. LEGS: No edema. No swelling. Nervous system: Higher functions as mentioned earlier. Cranial nerves, eye movements are full in all directions. No nystagmus observed in the extreme deviation. Otherwise, no signs of cerebellar dysfunction. Gait not tested. Skin no ulcers, rashes or bleeding. Joints: No active deforming arthropathy. LABS: WBC 7.2, hemoglobin 16, otherwise CO2 is 20, and glucose 101. ASSESSMENT: 1. Severe dizziness, vertigo with gait dysfunction, possible benign positional vertigo. 2. Hyperlipidemia. 3. Hypothyroidism. 4. History of back surgery. 5. History of laminectomy. 6. History of orthostatic hypotension. RECOMMENDATIONS AND DISCUSSION: In this 49-year-old woman who presented with multiple complex medical issues, we will monitor the patient closely, continue the current medications, management and symptomatic treatment. I would recommend symptomatic treatment and I would also recommend MRI of the brain and neurology evaluation. Also an ENT evaluation also may be sought. Resume the home medication. Orthostatic vitals. Prognosis guarded because of multiple complex medical issues. Further recommendations to follow. A copy of dictation being forwarded to Dr. Leonardo who is the primary physician. TROY / JAE: [id number] / MTDD
[2019-08-07] MEDS: LEVOTHYROXINE 75 MCG TAB PO SCH (06:01)
[2019-08-07 07:36] LABS: Basophils # (A) 0.1 k/uL (0-0.2); Basophils % (A) 1 %; Eosinophils # (A) 0.2 k/uL (0-0.7); Eosinophils % (A) 2 %; HCT 42.5 % (34.0-46.0); HGB 13.7 gm/dL (11.4-16.0); Lymphocytes # (A) 2.2 k/uL (1.0-4.8); Lymphocytes % (A) 31 %; MCH 27.8 pg (25.0-35.0); MCHC 32.2 g/dL (31.0-37.0); MCV 86.4 fL (80.0-100.0); Mean Platelet Volume 8.9; Monocytes # (A) 0.4 k/uL (0-1.0); Monocytes % (A) 5 %; Neutrophils # (A) 4.2 k/uL (1.3-7.7); Neutrophils % (A) 59 %; Platelet Count 255 k/uL (150-450); RBC 4.92 m/uL (3.80-5.40); RDW 13.5 % (11.5-15.5); WBC 7.1 k/uL (3.8-10.6)
[2019-08-07 07:50] LABS: African American GFR (CKD) >90 (>60 ml/min/1.73 sqM); Anion Gap 8 mmol/L; Blood Urea Nitrogen 12 mg/dL (7-17); Calcium 8.8 mg/dL (8.4-10.2); Carbon Dioxide 23 mmol/L (22-30); Chloride 107 mmol/L (98-107); Cholesterol 172 mg/dL (<200); Glucose 100 mg/dL (74-99); HDL Cholesterol 35 mg/dL (40-60); LDL Cholesterol,Calculated 112 mg/dL (0-99); Non-African American GFR(CKD) >90 (>60 ml/min/1.73 sqM); Potassium 3.6 mmol/L (3.5-5.1); Sodium 138 mmol/L (137-145); Triglycerides 125 mg/dL (<150)
[2019-08-07] MEDS: PANTOPRAZOLE 40 MG TABLET PO SCH (08:34)
[2019-08-07] MEDS: HEPARIN SODIUM,PORCINE 5,000 UNIT/ML 1 ML VIAL SQ SCH ×2 (08:34→20:13)
[2019-08-07] MEDS: MELOXICAM 7.5 MG TAB PO SCH (08:34)
[2019-08-07] MEDS: MECLIZINE 25 MG TAB PO SCH ×2 (08:35→15:36)
[2019-08-07] MEDS ORDERED: NON FORMULARY DRUG (Omeprazole 40 MG) PO SCH (09:00)
[2019-08-07] MEDS ORDERED: ACETAMINOPHEN TAB 325 MG TAB PO PRN (11:53)
--- NOTE | 2019-08-07 14:47 | P.CNNES ---
History of Present Illness Consult date: 08/07/19 Requesting physician: April Olivarez Reason for Consult: Intractable dizziness History of Present Illness: Patient is a 49-year-old female who has history of intermittent vertigo for last 10 years. Patient states that she has seen Dr. Neri in the past, who performed rotary testing several years ago. No obvious diagnosis was made, as per patient. She gets this vertigo about once a year, last for a couple days. Patient states that about a week ago on 07/31/2019, patient at night rolled over in the bed and became significantly dizzy, with nausea vomiting. It would not stop. She was brought to the hospital where she underwent computed tomography scan of the head which was normal. She was given meclizine, Valium fluids and her symptoms improved. She was discharged home. Patient states that she went to work on Wednesday, and states the symptoms came back. She continues to take meclizine. She stayed home on . Went back on work on Wednesday. Day before yesterday, was Wednesday and she was doing the best. She felt symptoms may have gone away, stopped taking meclizine. 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 She continues to have vertigo, difficulty with walking. Patient denies any focal neurological symptoms whatsoever. Denies any tinnitus, hearing loss or pain in the ear. Patient denies any recent upper respiratory infection. Patient had recent history of HP. Patient's EKG showed normal sinus rhythm. Computed tomography scan of head showed no acute intracranial Brommer. Underaeration of the mastoids may reflect chronic mastoiditis. On my review, there is no wax in the external auditory canal. Paranasal sinuses otherwise clear. Patient had a carotid Doppler on 12/30/2018, which revealed no significant stenosis with antegrade flow in both vertebral arteries. Patient had a 2-D echo 12/09/2018, which revealed sinus rhythm, EF 55-60%. Right ventricle is mildly enlarged. Normal left atrial size. Patient's previous blood test shows vitamin B12 447 on 06/14/2019, B1 79, vitamin E 45, thyroid function tests are normal. Folate 22.1. Her total cholesterol is 172, LDL 112, HDL 35 and triglycerides 125. Liver panel normal. Review of Systems As above in detail. Denies any focal symptoms. Denies any shortness of breath, chest pain. Denies Vision loss, blurred vision, facial droop hoarseness or dysphagia. Past Medical History Past Medical History: Hyperlipidemia, Thyroid Disorder Additional Past Medical History / Comment(s): hpylori, vertigo History of Any Multi-Drug Resistant Organisms: None Reported Past Surgical History: Appendectomy, Back Surgery, Hysterectomy, Tonsillectomy Additional Past Surgical History / Comment(s): uterine ablation. LAMINECTOMY Past Anesthesia/Blood Transfusion Reactions: Motion Sickness Past Psychological History: No Psychological Hx Reported Smoking Status: Never smoker Past Alcohol Use History: None Reported Past Drug Use History: None Reported - Past Family History Father Family Medical History: Deep Vein Thrombosis (DVT) Mother Family Medical History: Pulmonary Embolus Additional Family Medical History / Comment(s): Emphysema, patient states mother passed when she was 68. Medications and Allergies Home Medications Medication Instructions Recorded Confirmed Type Levothyroxine Sodium [Synthroid] 150 mcg PO DAILY 03/24/16 08/06/19 History Celecoxib [CeleBREX] 200 mg PO DAILY 06/14/19 08/06/19 History Amoxicillin 1,000 mg PO Q12HR #56 cap 07/25/19 08/06/19 Rx Clarithromycin [Biaxin] 500 mg PO Q12HR #28 tablet 07/25/19 08/06/19 Rx Omeprazole [PriLOSEC] 40 mg PO DAILY #90 cap 07/25/19 08/06/19 Rx Meclizine [Antivert] 25 mg PO TID #20 tab 07/31/19 08/06/19 Rx Rizatriptan Odt [Maxalt Explosives Worker] 10 mg PO BID PRN MDD 20 MG 08/07/19 08/07/19 H istory Allergies Allergy/AdvReac Type Severity Reaction Status Date / Time influenza virus vaccine, Allergy PROBLEMS Verified 08/06/19 15:11 specific WITH VOICE [influenza virus " vacc,specific] Physical Examination - Vital Signs Vital Signs: Vital Signs Temp Pulse Pulse Pulse Pulse Resp BP 08/07/19 07:20 97.9 F 72 18 08/07/19 04:00 97.5 F L 76 18 08/07/19 00:00 98.1 F 75 18 08/06/19 19:32 98.4 F 87 105 H 77 18 122/82 08/06/19 16:00 97.9 F 78 16 BP BP BP Pulse Ox 08/07/19 07:20 113/73 98 08/07/19 04:00 113/78 97 08/07/19 00:00 104/71 96 08/06/19 19:32 115/75 99/72 94 L 08/06/19 16:00 136/78 98 Intake and Output 08/06/19 08/07/19 08/07/19 22:59 06:59 14:59 Intake Total 240 Balance 240 Intake: Oral 240 Other: Voiding Method Toilet Toilet Toilet # Voids 1 1 1 Weight 116.3 kg On examination patient is a middle aged female, in no distress. Patient is alert and awake, fully oriented to time place and person. Her speech and language functions are normal. Attention and concentration fund of knowledge is adequate. On cranial nerve examination pupils are round and reactive to light, visual crow are full, extraocular muscles are intact. Face is symmetric, tongue protrudes the midline. Palatal elevation and sensation normal. Patient is holding her head straight, does not want to turn otherwise gets dizziness. On muscle strength testing there is no pronator drift and the strength is normal in arms and legs distally and proximally. Reflexes are 1+ and plantars downgoing sensory touch is equal with no neglect, no ataxia for [id number] testing. Tone and bulk of muscles normal. Results - Laboratory Findings CBC and BMP: 08/07/19 07:16 08/07/19 07:16 Abnormal Lab Findings: Abnormal Labs 08/06/19 08/06/19 08/06/19 13:02 13:04 14:15 RBC 5.79 H Hct 50.3 H Carbon Dioxide 20 L Glucose 101 H LDL Cholesterol, Calc HDL Cholesterol Urine Ketones 2+ H 08/07/19 07:16 RBC Hct Carbon Dioxide Glucose 100 H LDL Cholesterol, Calc 112 H HDL Cholesterol 35 L Urine Ketones Assessment and Plan Assessment: * Recurrent episodes of vertigo, probable benign positional peripheral vertigo. Doubt Mnire disease. Plan: * Medrol Dosepak. * Vestibular rehabilitation as an outpatient. * If symptoms persist, may follow up with an ENT specialist, as the computed tomography scan of head showed evidence of possible mastoiditis. This can be done as an outpatient or inpatient. * Continue meclizine.
[2019-08-07] MEDS: methylPREDNISolone 4 MG TAB TAPER PO SCH (15:37)
--- NOTE | 2019-08-07 16:52 | PN ---
PROGRESS NOTE DATE OF SERVICE: 08/07/2019 This 49-year-old woman who was admitted with significant vertigo has continued to be symptomatic. The patient also had recurrence of symptoms. The patient was seen by Neurology. ENT evaluation is in progress also. Neurology has opined the possibility of benign positional vertigo. MRI scan is pending at this time. No chest pain. No palpitations. No fever. The patient is complaining of some left-sided headache also. PHYSICAL EXAMINATION: Alert and oriented x3. The pulse is 72, blood pressure 130/73, respiration 18, temperature 97.9, pulse ox 98% on room air. HEENT: Conjunctivae normal. NECK: No jugular venous distention. CARDIOVASCULAR SYSTEM: S1, S2 muffled. RESPIRATORY SYSTEM: Breath sounds diminished at the bases. No rhonchi. No crackles. ABDOMEN: Soft, non-tender. LEGS: No edema. No swelling. NERVOUS SYSTEM: Rotary nystagmus, looking to the left present. Otherwise, no focal deficit. LABS: CBC within normal limits and CMP noted. LDL is 112. UA unremarkable. ASSESSMENT: 1. Recurrent vertigo, possibly benign positional vertigo. 2. History of left-sided headache. 3. Hyperlipidemia. 4. Hypothyroidism. 5. History of back surgery and degenerative joint disease. 6. History of laminectomy. 7. History of orthostatic hypotension. 8. Obesity with body mass index of 36.8. 9. Elevated LDL. RECOMMENDATIONS AND DISCUSSION: In this 49-year-old woman who presented with multiple complex medical issues, we will monitor the patient closely, continue the current medications, continue symptomatic treatment. I recommend continuing with Antivert. Otherwise, DVT prophylaxis. MRI scan. The patient was recommended a short course of steroids at this time per Neurology. We will continue to monitor. Prognosis guarded. Further recommendations to follow. See orders for further details. MMODL / IJN: [id number] /
--- NOTE | 2019-08-07 17:20 | MR ---
PRE AND POSTCONTRAST ENHANCED MRI OF THE BRAIN: CLINICAL HISTORY: CVA symptoms CONTRAST: 12 mL Gadavist Comparison: 09/04/2013. Multiplanar and multispin-echo imaging of the brain was performed both before and after the administr ation of contrast. The ventricles, basal cisterns and sulci overlying the cerebral convexities are within normal limits. There is no evidence for midline shift or mass effect. Acute intracranial hemorrhage or extra-axial collection is not evident. Noted are stable 2 or 3 areas of abnormal signal the white matter which are nonspecific and of questi onable significance. Following contrast administration, there is no evidence for pathologic enhancement or enhancing mass. The paranasal sinuses and mastoid air cells are well-aerated. IMPRESSION: Stable nonspecific white matter foci of questionable significance. No acute process seen.
--- NOTE | 2019-08-07 17:49 | P.GSCN ---
History of Present Illness Consult date: 08/07/19 Reason for Consult: Intractable dizziness Requesting physician: April Olivarez History of present illness: This is a 49-year-old white female who developed vertigo proximally 8 days ago early Wednesday morning. She has been on a full liquid diet as she is contemplating bariatric surgery. She has had dizziness issues in the past and balance testing over year ago demonstrated probable central etiology. The patient was lost to follow-up and did not follow up with the neurologist. She has had a lifetime of migraines and complains of motion disturbance and motion sickness. She tells me that she's had intractable vertigo and nausea for 8 days. She has had some vomiting but that seems to have resolved. She had a CAT scan demonstrating possible mastoiditis but evaluation the CAT scan did not show any evidence of mastoiditis. Awaiting results of MRI scan. Neurologic consultation was performed and no focal neurologic signs were noted. She tells me that any motion makes her more dizzy. She is not specifically more dizzy in any particular position. She denies any neurologic symptoms such as numbness, weakness, slurred speech, loss of consciousness etc. etc. She has some mild ear fullness but denies any hearing loss, ear pressure, tinnitus, hearing loss, otalgia, otorrhea etc. etc. Review of Systems - Constitutional Denies chronic headaches, Denies fever - EENT Eyes: bilateral photophobia, denies blurred vision, denies bulging eye, denies decreased vision, denies diplopia, denies loss of peripheral vision, denies loss of vision, denies tunnel vision/blind spots Ears: deny: decreased hearing, ear discharge, earache, tinnitus Ears, nose, mouth and throat: Denies dysphagia, Denies epistaxis, Denies nasal congestion - Cardiovascular Denies decreased exercise tolerance - Respiratory Denies cough - Gastrointestinal Denies change in bowel habits - Genitourinary Genitourinary: Denies difficulty voiding - Musculoskeletal Denies arm numbness/tingling - Integumentary Denies brittle nails - Neurological Denies balance difficulties - Psychiatric Denies anxiety - Endocrine Denies cold intolerance - Hematologic/Lymphatic Denies easy bleeding Past Medical History Past Medical History: Hyperlipidemia, Thyroid Disorder Additional Past Medical History / Comment(s): hpylori, vertigo History of Any Multi-Drug Resistant Organisms: None Reported Past Surgical History: Appendectomy, Back Surgery, Hysterectomy, Tonsillectomy Additional Past Surgical History / Comment(s): uterine ablation. LAMINECTOMY Past Anesthesia/Blood Transfusion Reactions: Motion Sickness Past Psychological History: No Psychological Hx Reported Smoking Status: Never smoker Past Alcohol Use History: None Reported Past Drug Use History: None Reported - Past Family History Father Family Medical History: Deep Vein Thrombosis (DVT) Mother Family Medical History: Pulmonary Embolus Additional Family Medical History / Comment(s): Emphysema, patient states mother passed when she was 68. Medications and Allergies Home Medications Medication Instructions Recorded Confirmed Type Levothyroxine Sodium [Synthroid] 150 mcg PO DAILY 03/24/16 08/06/19 History Celecoxib [CeleBREX] 200 mg PO DAILY 06/14/19 08/06/19 History Amoxicillin 1,000 mg PO Q12HR #56 cap 07/25/19 08/06/19 Rx Clarithromycin [Biaxin] 500 mg PO Q12HR #28 tablet 07/25/19 08/06/19 Rx Omeprazole [PriLOSEC] 40 mg PO DAILY #90 cap 07/25/19 08/06/19 Rx Meclizine [Antivert] 25 mg PO TID #20 tab 07/31/19 08/06/19 Rx Rizatriptan Odt [Maxalt Scientific Photographer] 10 mg PO BID PRN MDD 20 MG 08/07/19 08/07/19 History Allergies Allergy/AdvReac Type Severity Reaction Status Date / Time influenza virus vaccine, Allergy PROBLEMS Verified 08/06/19 15:11 specific WITH VOICE [influenza virus " vacc,specific] Surgical - Exam Osteopathic Statement: *. No significant issues noted on an osteopathic structural exam other than those noted in the History and Physical/Consult. Vital Signs Temp Pulse Resp BP Pulse Ox 98.0 F 90 18 111/76 98 08/06/19 12:34 08/06/19 12:34 08/06/19 12:34 08/06/19 12:34 08/06/19 12:34 - General well developed, well nourished, no distress, obese - Eyes PERRL, normal ocular movement - ENT normal pinna, normal nares, normal mucosa, no hearing loss, no congestion (Name) - Neck no masses, no bruits, trachea midline, no lymphadectomy - Respiratory normal expansion, normal respiratory effort - Integumentary no rash, no growths, no abnormal pigmentation - Neurologic no disoriented, no combative, no memory loss - Musculoskeletal normal posture - Psychiatric oriented to time, oriented to person, oriented to place, speech is normal Results - Labs 08/07/19 07:16 08/07/19 07:16 Abnormal Lab Results - Last 24 Hours (Table) 08/07/19 08/07/19 Range/Units 07:16 07:16 Glucose 100 H (74-99) mg/dL C-Reactive Protein 12.5 H (<10.0) mg/L LDL Cholesterol, Calc 112 H (0-99) mg/dL HDL Cholesterol 35 L (40-60) mg/dL Diabetes panel 08/07/19 Range/Units 07:16 Sodium 138 (137-145) mmol/L Potassium 3.6 (3.5-5.1) mmol/L Chloride 107 (98-107) mmol/L Carbon Dioxide 23 (22-30) mmol/L BUN 12 (7-17) mg/dL Creatinine 0.65 (0.52-1.04) mg/dL Glucose 100 H (74-99) mg/dL Calcium 8.8 (8.4-10.2) mg/dL Triglycerides 125 (<150) mg/dL HDL Cholesterol 35 L (40-60) mg/dL Calcium panel 08/07/19 Range/Units 07:16 Calcium 8.8 (8.4-10.2) mg/dL Pituitary panel 08/07/19 Range/Units 07:16 Sodium 138 (137-145) mmol/L Potassium 3.6 (3.5-5.1) mmol/L Chloride 107 (98-107) mmol/L Carbon Dioxide 23 (22-30) mmol/L BUN 12 (7-17) mg/dL Creatinine 0.65 (0.52-1.04) mg/dL Glucose 100 H (74-99) mg/dL Calcium 8.8 (8.4-10.2) mg/dL Adrenal panel 08/07/19 Range/Units 07:16 Sodium 138 (137-145) mmol/L Potassium 3.6 (3.5-5.1) mmol/L Chloride 107 (98-107) mmol/L Carbon Dioxide 23 (22-30) mmol/L BUN 12 (7-17) mg/dL Creatinine 0.65 (0.52-1.04) mg/dL Glucose 100 H (74-99) mg/dL Calcium 8.8 (8.4-10.2) mg/dL Assessment and Plan (1) Dizziness Current Visit: No Status: Acute Code(s): R42 - DIZZINESS AND GIDDINESS SNOMED Code(s): 958062207 (2) Vertigo Current Visit: No Status: Acute Code(s): R42 - DIZZINESS AND GIDDINESS SNOMED Code(s): 404788797 Plan: This patient has intractable vertigo for over a days with no focal neurologic symptoms and no specific otologic symptoms. Possible etiologies could be intractable migraine induced vertigo versus vestibular neuronitis etc. Previous balance testing the 20 central etiology. I'm recommending control of her vertigo symptoms for patient comfort with use of a variety of different medications which I will write for. I think we can handle this on outpatient basis with continued neurologic care and we will make arrangements for a consultation with neurology on outpatient basis. She is currently on a full liquid high-protein 800-calorie diet pre-bariatric surgery and that may need to be reevaluated. I do not see evidence of Mnire's disease with no evidence of unilateral hearing loss ear pressure unilateral tenderness. The patient's dizziness is long lasting and not positionally based so most likely not benign paroxysmal positional vertigo. Again intractable migraine versus vestibular neuronitis of the most likely etiology. Thank you for alarming to be dispensed for this patient we will follow on an outpatient basis and review her MRI films were available. Again, I see no evidence of mastoiditis. Time with Patient: Greater than 30
[2019-08-07] MEDS ORDERED: SCOPOLAMINE 1.5MG/72HR PATCH TRANSDERM ONE (17:52)
[2019-08-07] MEDS: PROMETHAZINE 25 MG TAB PO SCH ×2 (18:31→23:07)
[2019-08-07 20:05] LABS: T4, Free (Free Thyroxine) 1.32 ng/dL (0.78-2.19)
[2019-08-07] MEDS: DIAZEPAM 2 MG TAB PO SCH ×2 (20:13→22:50)
[2019-08-07] MEDS: SODIUM CHLORIDE 0.9% 1,000 ML IV SCH (20:13)
[2019-08-08] MEDS: PROMETHAZINE 25 MG TAB PO SCH ×2 (05:05→12:56)
[2019-08-08] MEDS: LEVOTHYROXINE 75 MCG TAB PO SCH (05:05)
[2019-08-08] MEDS: SODIUM CHLORIDE 0.9% 1,000 ML IV SCH (05:07)
[2019-08-08 07:24] VITALS: BP 125/74; PULSE 65; TEMP 97.4
[2019-08-08 07:27] LABS: HCT 45.9 % (34.0-46.0); MCH 28.1 pg (25.0-35.0); MCHC 32.7 g/dL (31.0-37.0); MCV 85.8 fL (80.0-100.0); Mean Platelet Volume 9.6; RBC 5.34 m/uL (3.80-5.40); RDW 13.1 % (11.5-15.5); WBC 9.7 k/uL (3.8-10.6)
[2019-08-08 07:34] LABS: African American GFR (CKD) >90 (>60 ml/min/1.73 sqM); Anion Gap 7 mmol/L; Blood Urea Nitrogen 10 mg/dL (7-17); Calcium 9.4 mg/dL (8.4-10.2); Carbon Dioxide 23 mmol/L (22-30); Chloride 106 mmol/L (98-107); Glucose 109 mg/dL (74-99); Non-African American GFR(CKD) >90 (>60 ml/min/1.73 sqM); Sodium 136 mmol/L (137-145)
[2019-08-08 07:40] LABS: Potassium 5.1 mmol/L (3.5-5.1)
[2019-08-08 08:09] LABS: Lymphocytes # (M) 0.87 k/uL (1.0-4.8); Monocytes # (M) 0.39 k/uL (0-1.0); Neutrophils # (M) 8.34 k/uL (1.3-7.7); Neutrophils % (M) 86 %; Nucleated Red Blood Cells 0 /100 WBC (0-0); Total Cells Counted 100
[2019-08-08 08:12] LABS: Platelet Count 336 k/uL (150-450)
[2019-08-08] MEDS: HEPARIN SODIUM,PORCINE 5,000 UNIT/ML 1 ML VIAL SQ SCH (08:50)
[2019-08-08] MEDS: DIAZEPAM 2 MG TAB PO SCH ×2 (08:51→12:56)
[2019-08-08] MEDS: methylPREDNISolone 4 MG TAB TAPER PO SCH (08:51)
[2019-08-08] MEDS: MELOXICAM 7.5 MG TAB PO SCH (08:51)
[2019-08-08] MEDS: PANTOPRAZOLE 40 MG TABLET PO SCH (08:51)
--- NOTE | 2019-08-08 11:52 | P.PN ---
Subjective Progress Note Date: 08/08/19 Patient states that she is about 40-50% better. When she is laying down, she has no symptoms. However when she gets up, she still has symptoms of dizziness. Patient was seen by ENT Dr. Neri, who felt patient has vestibular neuronitis versus labyrinthitis. Patient was started on scopolamine patch, Valium. Patient also was started on Solu-Medrol. Overall symptoms have improved. He denies any focal symptoms. Patient also underwent MRI of the brain with and without contrast, which is negative for any acute stroke or mass lesion. No abnormal enhancement. Stable nonspecific white matter foci of questionable significance. Paranasal sinuses are clear including mastoids. No evidence of chronic mastoiditis. Patient's thyroid functions reveal TSH is low 0.386 with normal free T4 1 0.32. Total cholesterol is 172, LDL 112, HDL 35 and triglycerides 125. CBC and CMP normal. Objective - Vital Signs Vital signs: Vital Signs Temp 97.4 F L 08/08/19 07:22 Pulse 65 08/08/19 07:22 Resp 18 08/08/19 07:22 BP 125/74 08/08/19 07:22 Pulse Ox 97 08/08/19 07:22 Intake & Output 08/07/19 08/08/19 08/08/19 18:59 06:59 18:59 Intake Total 240 420 Balance 240 420 Weight 116.5 kg Intake: Oral 240 420 Other: Voiding Method Toilet Toilet Toilet # Voids 1 1 - Exam Patient's mental status, speech and language functions are normal. Cranial nerves are normal. No ataxia, muscle strength normal. - Labs CBC & Chem 7: 08/08/19 06:30 08/08/19 06:30 Labs: Abnormal Lab Results - Last 24 Hours (Table) 08/07/19 08/07/19 08/08/19 Range/Units 07:16 07:16 06:30 Neutrophils # (Manual) 8.34 H (1.3-7.7) k/uL Lymphocytes # (Manual) 0.87 L (1.0-4.8) k/uL Sodium (137-145) mmol/L Glucose (74-99) mg/dL C-Reactive Protein 12.5 H (<10.0) mg/L TSH 0.386 L (0.465-4.680) mIU/L 08/08/19 Range/Units 06:30 Neutrophils # (Manual) (1.3-7.7) k/uL Lymphocytes # (Manual) (1.0-4.8) k/uL Sodium 136 L (137-145) mmol/L Glucose 109 H (74-99) mg/dL C-Reactive Protein (<10.0) mg/L TSH (0.465-4.680) mIU/L Assessment and Plan Assessment: * Recurrent episodes of vertigo, probable benign positional peripheral vertigo. Possible superimposed labyrinthitis. Mnire's disease less likely. Plan: * Medrol Dosepak. * Vestibular rehabilitation as an outpatient, if patient continues to have positional vertigo. * Patient has been started on scopolamine patch, and Valium, which is also helping. * Neurologically clear for discharge, if stable from ambulation standpoint. * Continue meclizine. * Patient's B12 was normal 447 on 06/14/2019, folate 22.1. Hemoglobin A1c 4.7.
--- NOTE | 2019-08-09 06:19 | DS ---
DISCHARGE SUMMARY DATE OF SERVICE: 08/08/2019. FINAL DIAGNOSES: 1. Recurrent vertigo, possible benign positional peripheral vertigo or vestibular neuronitis or labyrinthitis, Meniere's disease unlikely. 2. History of left-sided headaches and migraines. 3. Hyperlipidemia. 4. Hypothyroidism. 5. History of back surgery, degenerative joint disease. 6. History of laminectomy. 7. History of orthostatic hypotension. 8. Obesity with body mass index of 36.8. 9. Elevated LDL. DISCHARGE DISPOSITION: The patient will be discharged in stable condition with guarded prognosis. HISTORY OF PRESENT ILLNESS: This 49-year-old woman with a past medical history of multiple medical problems being followed by Dr. Leonardo in the outpatient setting admitted with intractable vertigo and dizziness. The patient was seen by Neurology and ENT, Dr. Sandoval. MRI did not show any acute abnormality. Otherwise ENT recommended close outpatient followup and as well as Neurology followup also. Treated symptomatically, feeling much better. On exam, vitals are stable. CARDIOVASCULAR: S1, S2 muffled. ABDOMEN: Soft. NERVOUS SYSTEM: No focal deficit. DISCHARGE ADVICE AND MEDICATIONS: 1. Diet is cardiac. 2. Activity limited until followup. 3. Follow up with Dr. Leonardo 2 to 3 days. 4. Follow up with ENT as mentioned earlier. 5. Follow up with Dr. Lobato, neurology as mentioned earlier. Medications are: 1. Celebrex 200 mg p.o. daily. 2. Maxalt p.r.n. 3. Synthroid 150 mcg p.o. daily. 4. Antivert 25 mg p.o. t.i.d. p.r.n. 5. Medrol Dosepak as before. 6. Phenergan 25 mg p.o. q.6 p.r.n. 7. Scopolamine patch 1.5 mg q.72 hours. 8. Valium 2 mg p.o. q.6 around the clock per ENT. Valium and Phenergan per ENT and continue to follow up. Once again the patient will be discharged in stable condition with guarded prognosis. MMODL / IJN: [id number] /
== END 2019-08-08 14:08 | disposition home or self-care (01) ==
LOC: EC 12:28 → 1SOBS 14:28
PROVIDERS: ADMIT Hospitalist; ATTEND Hospitalist
DX: R42 Dizziness and giddiness (principal); E03.9 Hypothyroidism, unspecified; E66.9 Obesity, unspecified; E78.5 Hyperlipidemia, unspecified; I10 Essential (primary) hypertension; K44.9 Diaphragmatic hernia without obstruction or gangrene; T75.3XXA Motion sickness, initial encounter; Z68.36 Body mass index [BMI] 36.0-36.9, adult; Z79.1 Long term (current) use of non-steroidal anti-inflammatories (NSAID); Z79.890 Hormone replacement therapy; Z82.5 Family history of asthma and other chronic lower respiratory diseases; Z86.19 Personal history of other infectious and parasitic diseases; Z87.891 Personal history of nicotine dependence; Z90.710 Acquired absence of both cervix and uterus; Z88.7 Allergy status to serum and vaccine
CPT/HCPCS: 96372 ×3; 96361; 96374; 96375; 99285; 36415; 93005; 86376; 84439; 80061; 80053; 80048 ×2; 85652; 84443; 83735; 84484; 85025 ×3; 86140; 81003; 70450; 70553; G0378 ×3; J1200; J1644 ×3; J2765; J3360; J2405; J7509 ×2; A9585

== ENCOUNTER 2019-09-08 10:26 | Observation (INO) | payer MEDICAID ==
--- NOTE | 2019-09-08 09:12 | P.GSHP ---
History of Present Illness H&P Date: 09/08/19 CHIEF COMPLAINT: Paraesophageal hiatal hernia with gastroesophageal reflux disease. HISTORY OF PRESENT ILLNESS: The patient is a 49-year-old female who presents with paraesophageal hiatal hernia. She has completed an esophageal manometry including upper endoscopy workup. Now she presents for surgical intervention. PAST MEDICAL HISTORY: Please see list. PAST SURGICAL HISTORY: Please see list. MEDICATIONS: Please see list. ALLERGIES: Please see list. SOCIAL HISTORY: No illicit drug use FAMILY HISTORY: No reports of Crohn disease or ulcerative colitis. REVIEW OF ORGAN SYSTEMS: CONSTITUTIONAL: No reports of fevers or chills. GI: Denies any blood in stools or constipation. PHYSICAL EXAM: VITAL SIGNS: Stable GENERAL: Well-developed pleasant and in no acute distress. HEENT: No scleral icterus. Extraocular movements grossly intact. Moist buccal mucosa. NECK: Supple without lymphadenopathy. CHEST: Unlabored respirations. Equal bilateral excursions. CARDIOVASCULAR: Regular rate and rhythm. Distal 2+ pulses. ABDOMEN: Soft, nondistended. No peritoneal signs. MUSCULOSKELETAL: No clubbing, cyanosis, or edema. SKIN: Well-perfused. Good skin turgor. MANOMETRY: Shows no evidence of achalasia or scleroderma. ASSESSMENT: 1. Diaphragmatic paraesophageal hiatal hernia with severe gastroesophageal reflux disease. PLAN: 1. Recommend proceeding with a robotic paraesophageal hiatal hernia with possible mesh. 2. Benefits and risks of surgical intervention was discussed including possibility of open technique. 3. Inpatient hospitalization recommended of 2 nights 4. DVT prophylaxis. 5. Antibiotic prophylaxis. 6. She has also completed a very low caloric high-protein diet to address underlying hepatomegaly. Past Medical History Past Medical History: GERD/Reflux, Hyperlipidemia, Osteoarthritis (OA), Thyroid Disorder Additional Past Medical History / Comment(s): H-pylori, vertigo, migraines. OA hips. Hiatal Hernia currently. History of Any Multi-Drug Resistant Organisms: None Reported Past Surgical History: Appendectomy, Back Surgery, Hysterectomy, Tonsillectomy, Uterine Ablation Additional Past Surgical History / Comment(s): LAMINECTOMY. EGD 07/17/19 Past Anesthesia/Blood Transfusion Reactions: Motion Sickness Smoking Status: Never smoker - Past Family History Father Family Medical History: Deep Vein Thrombosis (DVT) Mother Family Medical History: Pulmonary Embolus Additional Family Medical History / Comment(s): Emphysema, patient states mother passed when she was 68. Medications and Allergies Home Medications Medication Instructions Recorded Confirmed Type Levothyroxine Sodium [Synthroid] 150 mcg PO DAILY 03/24/16 09/06/19 History Celecoxib [CeleBREX] 200 mg PO DAILY 06/14/19 09/06/19 History Omeprazole [PriLOSEC] 40 mg PO DAILY #90 cap 07/25/19 09/06/19 Rx Rizatriptan Odt [Maxalt IS ARCHITECT] 10 mg PO BID PRN 08/07/19 09/06/19 History Diazepam [Valium] 2 mg PO Q6HR PRN MDD not currently 08/24/19 09/06/19 History taking Meclizine [Antivert] 25 mg PO TID PRN 08/24/19 09/06/19 History Promethazine [Phenergan] 25 mg PO Q6HR PRN 08/24/19 09/06/19 History Scopolamine 1.5MG/72Hr Patch 1 patch TRANSDERM Q72H PRN 08/24/19 09/06/19 History [TransDerm Scop] Amitriptyline (Unknown Dose) 0.5 tab PO HS PRN 09/06/19 History Allergies Allergy/AdvReac Type Severity Reaction Status Date / Time influenza virus vaccine, Allergy PROBLEMS Verified 09/06/19 12:40 specific WITH VOICE [influenza virus " vacc,specific]
[~2019-09-08 10:26] MED LIST changes: +ACETAMINOPHEN TAB 500 MG TAB PO STA; +CHLORHEXIDINE GLUCONATE 15 ML CUP MUCOUS MEM ONE; +DEXAMETHASONE SOD PHOSPHATE 10 MG/ML 1 ML VIAL IV ONE; +GABAPENTIN 300 MG CAP PO STA; +HEPARIN SODIUM,PORCINE 5,000 UNIT/ML 1 ML VIAL SQ ONE; +HYDROmorphone 0.5 MG/0.5 ML SYRINGE IVP PRN; -LACTATED RINGERS 1,000 ML IV SCH; +LIDOCAINE 1% (10MG/ML) FOR IV START INTRADERMA PRN; -LIDOCAINE 1% 20 ML VIAL (10MG/ML) FOR IV START INTRADERMA PRN; +ONDANSETRON 4 MG/2 ML VIAL IVP ONE; +PANTOPRAZOLE 40 MG/10 ML VIAL IV STA; +Pre Op ABX Message 1 EACH MISC MISCELLANE ONE; +SCOPOLAMINE 1.5MG/72HR PATCH TRANSDERM ONE; +SCOPOLAMINE 1.5MG/72HR PATCH TRANSDERM STA
[2019-09-08] MEDS: LACTATED RINGERS 1,000 ML IV SCH (11:45)
[2019-09-08 12:00] LABS: Basophils % (A) 1 %; Eosinophils # (A) 0.1 k/uL (0-0.7); Eosinophils % (A) 2 %; HCT 44.1 % (34.0-46.0); HGB 14.1 gm/dL (11.4-16.0); Lymphocytes # (A) 2.3 k/uL (1.0-4.8); Lymphocytes % (A) 31 %; MCH 27.2 pg (25.0-35.0); MCHC 31.9 g/dL (31.0-37.0); MCV 85.3 fL (80.0-100.0); Monocytes # (A) 0.5 k/uL (0-1.0); Monocytes % (A) 7 %; Neutrophils # (A) 4.3 k/uL (1.3-7.7); Neutrophils % (A) 58 %; Platelet Count 318 k/uL (150-450); RBC 5.18 m/uL (3.80-5.40); RDW 13.3 % (11.5-15.5); WBC 7.4 k/uL (3.8-10.6)
[2019-09-08] MEDS ORDERED: fentaNYL (PF) 50 MCG/ML 2 ML AMP ONE (12:33)
[2019-09-08] MEDS ORDERED: SUCCINYLCHOLINE CHLORIDE 100 MG/5 ML SYR IV ONE (12:33)
[2019-09-08] MEDS ORDERED: WATER FOR INJECTION, STERILE 10 ML VIAL IV ONE (12:33)
[2019-09-08] MEDS ORDERED: HYDROmorphone (PF) 1 MG/ML ONE (12:33)
[2019-09-08] MEDS ORDERED: MIDAZOLAM 2 MG/2 ML VIAL ONE (12:33)
[2019-09-08] MEDS ORDERED: PROPOFOL 10 MG/ML 20 ML VIAL IV ONE (12:33)
[2019-09-08] MEDS ORDERED: ROCURONIUM BROMIDE 10 MG/ML 5 ML VIAL IV ONE (12:33)
[2019-09-08] MEDS ORDERED: LIDOCAINE 1%-EPI 1:100,000 20 ML VIAL SQ ONE (13:15)
[2019-09-08] MEDS ORDERED: LACTATED RINGERS 1,000 ML IV ONE (13:30)
[2019-09-08] MEDS ORDERED: SUMAtriptan SUCCINATE 50 MG TAB PO PRN (14:49)
[2019-09-08] MEDS ORDERED: MECLIZINE 25 MG TAB PO PRN (14:49)
[2019-09-08] MEDS ORDERED: HYDROmorphone 1 MG/ML 1 ML SYRINGE IVP PRN (14:50)
[2019-09-08] MEDS ORDERED: ACETAMINOPHEN IV (For NPO) 1,000 MG in EMPTY BAG 1 BAG IVPB ONE (14:50)
[2019-09-08] MEDS ORDERED: NALOXONE 0.4 MG/ML 1 ML VIAL IV PRN (14:50)
[2019-09-08] MEDS ORDERED: diphenhydrAMINE 50 MG/ML 1 ML VIAL IVP PRN (14:50)
--- NOTE | 2019-09-08 15:02 | P.OP ---
Date of Procedure: 09/08/19 Description of Procedure: SURGEON: MANUELA DRISCOLL MD PREOPERATIVE DIAGNOSES: 1. Diaphragmatic hiatal hernia. 2. Gastroesophageal reflux disease. 3. Vertigo 4. Depressive disorder 5. Morbid obesity due to excess calories, BMI 35.5 6. Hypothyroidism 7. Generalized osteoarthritis 8. Migraines 9. H. pylori gastritis POSTOPERATIVE DIAGNOSES: 1. Diaphragmatic hiatal hernia. 2. Gastroesophageal reflux disease. 3. Vertigo 4. Depressive disorder 5. Morbid obesity due to excess calories, BMI 35.5 6. Hypothyroidism 7. Generalized osteoarthritis 8. Migraines 9. H. pylori gastritis OPERATION: 1. Robotic-assisted da Richie Xi laparoscopic repair of hiatal hernia, 3 x 3 cm, with [place] Biopatch A 8 x 8 cm. 2. Intraoperative esophagogastroduodenoscopy ANESTHESIA: General with local anesthetic. ESTIMATED BLOOD LOSS: 5 mL SPECIMENS REMOVED: None COMPLICATIONS: None. Condition: stable Disposition: floor FINDINGS: 1. Midline incarcerated paraesophageal hiatal hernia 3 x 3 cm 2. Intraoperative upper endoscopy confirms complete closure of hiatal hernia from Hill grade 4 to Hill grade 1 3. No esophageal ulcerations 4. No peptic or duodenal ulcers 5. No overt gastritis INDICATIONS: The patient is a 49-year-old female who presents with regurgitation, gastroesophageal reflux disease poorly controlled despite medications, and a symptomatic diaphragmatic hiatal hernia. Preoperative workup including upper endoscopy demonstrated a Hill grade 4 lower esophageal valve. Given the severity of symptoms, she had elected for surgical intervention. Benefits and risks including bleeding, infection, recurrence, dysphagia, injury to the lung, need for further surgery was described at length. Informed consent was obtained. DESCRIPTION: The patient was brought into the operating room and placed in supine position. Preoperatively she had received heparin subcutaneously for DVT prophylaxis. After general induction, the abdomen was prepped and draped in standard sterile fashion. The patient had previously voided prior to coming to the operating room. Ioban draping was placed along the abdomen. A timeout protocol was confirmed with the surgical team, for which the patient's name, procedure to be performed including DVT prophylaxis with bilateral SCDs, and preoperative antibiotics were also confirmed. A robotic da Richie Xi system was prepped and primed. At 12 cm from the xiphoid to just below the umbilicus, proposed port sites were marked with indelible marker along the left axillary line, left mid-clavicular line with each ports were marked 10 cm from each other. A 5 mm 0 degrees laparoscopic trocar entry was performed along the left upper quadrant. The abdomen was insufflated to 15 mmHg pressure was tolerated well. Diagnostic laparoscopy demonstrated no injury to bowel, viscera, or mesentery. No injury had occurred to the small bowel or viscera. Next, one 8 mm robotic port was placed along the right upper abdomen. An 8-mm port was were placed along the left lateral abdominal wall. The camera 8-mm port was maintained along the epigastrium via the hernia defect. Another 12 mm port was placed along the left upper abdominal wall after exchanging the 5 mm port. Please note that the ports were placed at least 20 cm away from the target anatomy. Care was taken to check that each robotic arm were safely away from collision with the bed or the patient. At the epigastrium, a medium sized Benji liver retractor was placed under direct visualization with the Iron Shear Helper placed under the right shoulder of the patient. All robotic arms were used. The patient was repositioned in reverse Trendelenburg position at 20-degrees after lowering the bed. The robot was docked above the right side of the patient. Using a grasper for arm 3, a grasper for arm 1, including vessel sealer for arm 2, the robotic system was docked and primed as described. Instruments were interchanged by the quality assurance assistant. I had sat at the console. The gastrohepatic ligament was cleaved using a vessel sealer. Next, the phrenoesophageal ligament was mobilized and the distal esophagus was mobilized. The left and right crura was identified. Care was taken to avoid any gastrotomy. The measured defect was consistent with 3 cm axial length and 3 cm in width. After dissection, the distal esophagus of 3 cm was brought into the abdominal cavity. Once the hiatus and crura was dissected, 2-0 VLOC suture was placed to reapproximate the diaphragmatic hiatus posteriorly. To buttress the repair, a [place] Biopatch A was prepared along the back table and cut in half of a harper-hole fashion as to reinforce the repair as an underlay. The mesh was placed along the crural repair and tagged using horizontal mattress sutures using 2-0 VLOC. I went to the head of the bed to perform intraoperative esophagogastroduodenoscopy and placement of a 56Fr bougie. The bougie was passed without difficulty into the stomach with minimal resistance along the GE junction. An Olympus gastroscope was passed through posterior oropharynx. Retroflexion of the scope confirmed a Hill grade 1 lower esophageal valve. The stomach had been desufflated. No evidence of leaks were found of the esophagus or stomach. The squamocolumnar junction and hiatus was placed at 37 cm from the incisors. The GI tract with desufflated This concluded the endoscopic portion of the case. The robot was undocked from the patient. I re-scrubbed into the case. All instruments and pneumoperitoneum and specimens were evacuated from the abdominal cavity. Incisions were reapproximated using 4-0 Monocryl in an interrupted subcuticular fashion. Liquid glue was applied to the skin. Local anesthetic was infiltrated in all wounds for postop analgesia. Multiple intra-abdominal films were obtained. At the end of the procedure, needle, sponge, and instrument count was verified correct by the surgical appliance fitter. The patient had tolerated the procedure well and was taken to the postanesthesia unit in stable condition. Intraoperative films were reviewed with the patient's family who was pleased with the level of care.
[2019-09-08] MEDS: ALBUTEROL NEBULIZED 2.5 MG/3 ML INHALATION SCH ×2 (17:08→20:50)
[2019-09-08] MEDS: SIMETHICONE 40 MG/0.6 ML DROPS 2,000 MG/30 ML BOTTLE PO SCH (18:32)
[2019-09-08] MEDS: HYOSCYAMINE ORAL DROPS 1.875 MG/15 ML BOTTLE PO SCH (18:33)
[2019-09-08] MEDS: KETOROLAC 30 MG/ML 1 ML VIAL IVP SCH ×2 (18:37→23:59)
[2019-09-08] MEDS: ONDANSETRON 4 MG/2 ML VIAL IVP SCH (18:40)
[2019-09-08] MEDS: 0.9% NACL WITH KCL 20 MEQ/L 1,000 ML IV SCH ×2 (19:53→19:56)
[2019-09-09] MEDS: SIMETHICONE 40 MG/0.6 ML DROPS 2,000 MG/30 ML BOTTLE PO SCH ×3 (00:02→12:29)
[2019-09-09] MEDS: HYOSCYAMINE ORAL DROPS 1.875 MG/15 ML BOTTLE PO SCH ×3 (00:06→12:29)
[2019-09-09] MEDS: ONDANSETRON 4 MG/2 ML VIAL IVP SCH ×3 (00:07→12:29)
[2019-09-09] MEDS: LACTATED RINGERS 1,000 ML IV SCH (02:55)
[2019-09-09] MEDS: 0.9% NACL WITH KCL 20 MEQ/L 1,000 ML IV SCH (03:10)
[2019-09-09] MEDS: KETOROLAC 30 MG/ML 1 ML VIAL IVP SCH ×2 (06:21→12:21)
[2019-09-09] MEDS ORDERED: LEVOTHYROXINE 75 MCG TAB PO SCH (06:30)
--- NOTE | 2019-09-09 07:42 | FL ---
EXAMINATION TYPE: FL esophagus cervic/pharynx DATE OF EXAM: 09/08/2019 CLINICAL HISTORY: Status post Alek fundoplication earlier the same date TECHNIQUE: Limited esophagram is performed utilizing 25 mL of oral Isovue-370. A total of 32 seconds of fluoroscopic time was utilized during procedure. 14 fluoroscopic images were saved. FINDINGS: The patient swallowed contrast without difficulty or delay. Esophageal peristalsis and mo tility are within normal limits. There is mildly delayed flow of contrast along the diaphragmatic hia tus into the stomach, there is no evidence of contrast extravasation to suggest leak. No persistent h iatal hernia is seen. Patient remains asymptomatic. IMPRESSION: No evidence of leak or significant obstruction status post Silvino fundoplication surgery earlier today. Mild delay at the gastroesophageal junction is likely due to postoperative edema.
[2019-09-09] MEDS ORDERED: 0.9% NACL WITH KCL 20 MEQ/L 1,000 ML IV SCH (08:00)
[2019-09-09] MEDS ORDERED: PANTOPRAZOLE 40 MG/10 ML VIAL IV SCH (09:00)
[2019-09-09] MEDS ORDERED: ENOXAPARIN 40 MG/0.4 ML SYRINGE SQ SCH (09:00)
[2019-09-09 09:15] LABS: Basophils % (A) 0 %; Eosinophils # (A) 0.1 k/uL (0-0.7); Eosinophils % (A) 1 %; HCT 38.5 % (34.0-46.0); HGB 12.1 gm/dL (11.4-16.0); Lymphocytes # (A) 2.2 k/uL (1.0-4.8); Lymphocytes % (A) 26 %; MCHC 31.4 g/dL (31.0-37.0); MCV 86.2 fL (80.0-100.0); Mean Platelet Volume 8.5; Monocytes # (A) 0.4 k/uL (0-1.0); Monocytes % (A) 5 %; Neutrophils # (A) 5.6 k/uL (1.3-7.7); Neutrophils % (A) 66 %; Platelet Count 300 k/uL (150-450); RBC 4.46 m/uL (3.80-5.40); RDW 13.3 % (11.5-15.5); WBC 8.5 k/uL (3.8-10.6)
[2019-09-09 09:17] LABS: African American GFR (CKD) >90 (>60 ml/min/1.73 sqM); Anion Gap 7 mmol/L; Blood Urea Nitrogen 7 mg/dL (7-17); Calcium 8.3 mg/dL (8.4-10.2); Carbon Dioxide 23 mmol/L (22-30); Chloride 107 mmol/L (98-107); Non-African American GFR(CKD) >90 (>60 ml/min/1.73 sqM); Phosphorus 2.8 mg/dL (2.5-4.5); Potassium 3.9 mmol/L (3.5-5.1); Sodium 137 mmol/L (137-145)
[2019-09-09 11:19] VITALS: BMI 35.4
[2019-09-09 12:03] VITALS: BP 119/74; PULSE 86; RESP 18; TEMP 98.3
[2019-09-09] MEDS: ALBUTEROL NEBULIZED 2.5 MG/3 ML INHALATION SCH (12:31)
--- NOTE | 2019-09-09 14:36 | PN ---
PROGRESS NOTE CHIEF COMPLAINT: Reflux. SUBJECTIVE: Patient underwent laparoscopic hiatal hernia repair yesterday. Doing well at this time. Upper GI shows no evidence of leak or obstruction. She would like to go home today. OBJECTIVE: ABDOMEN: Soft, nondistended. Mild tenderness. PLAN: May discharge today on liquid diet. Follow up with Dr. Garcia next week. MMODL / IJN: [id number] /
[2019-09-10] MEDS ORDERED: BISACODYL 5 MG TABLET.DR PO PRN (08:00)
== END 2019-09-09 13:20 | disposition home or self-care (01) ==
LOC: OR 10:26 → 6PED 14:02 → OR 21:11
PROVIDERS: ADMIT Surgery Plastic and Reconstructive Surgery; ATTEND Surgery Plastic and Reconstructive Surgery
DX: K44.9 Diaphragmatic hernia without obstruction or gangrene (principal); K21.9 Gastro-esophageal reflux disease without esophagitis; R42 Dizziness and giddiness; F32.9 Major depressive disorder, single episode, unspecified; E78.5 Hyperlipidemia, unspecified; M15.0 Primary generalized (osteo)arthritis; E03.9 Hypothyroidism, unspecified; G43.909 Migraine, unspecified, not intractable, without status migrainosus; E66.01 Morbid (severe) obesity due to excess calories; Z68.35 Body mass index [BMI] 35.0-35.9, adult; Z79.890 Hormone replacement therapy; Z79.899 Other long term (current) drug therapy; Z79.1 Long term (current) use of non-steroidal anti-inflammatories (NSAID); Z88.7 Allergy status to serum and vaccine; Z90.49 Acquired absence of other specified parts of digestive tract; Z90.710 Acquired absence of both cervix and uterus; Z90.89 Acquired absence of other organs; Z82.5 Family history of asthma and other chronic lower respiratory diseases; Z82.49 Family history of ischemic heart disease and other diseases of the circulatory system
CPT/HCPCS: 43282; S2900; 74210; 80051; 82310; 82565; 83735; 84100; 84520; 85025; 94640

== ENCOUNTER → 2019-09-13 | Outpatient (CLI) | payer MEDICAID ==
--- NOTE | 2019-09-13 13:40 | P.PN ---
Subjective Progress Note Date: 09/13/19 DATE OF SERVICE: 09/13/2019 CHIEF COMPLAINT: Morbid obesity HISTORY OF PRESENT ILLNESS: Ghada Boyd is a 49-year-old female who status post hiatal hernia repair, 09/08/19. She is POD 5. She reports fatigue as to be expected. No vertigo. She had a small bowel movement. She denies gastroesophageal reflux disease. At height of 5 feet 10 inches, her ideal body weight is 173 pounds. She comes in 243 pounds from 267 pounds, 3 months ago. She has lost 23 pounds in 3 months. Her body mass index is down from 38.4 to 35.0. She is 70 pounds overweight. PHYSICAL EXAM: VITAL SIGNS: Height 5 foot 10 inches, weight 243 pounds. BMI 35.0 Vital Signs Temp 98.1 F 09/13/19 14:21 Pulse 120 H 09/13/19 14:21 Resp BP 106/85 09/13/19 14:21 Pulse Ox GENERAL: Well-developed in no acute distress. HEENT: No scleral icterus. Extraocular movements grossly intact. Hears con versational speech. No nasal drainage. NECK: Supple without lymphadenopathy. CHEST: Nonlabored respirations with equal bilateral excursions. CARDIOVASCULAR: Distal 2+ pulses. ABDOMEN: Incisions are clean, dry and intact MUSCULOSKELETAL: No clubbing, cyanosis. NEURO: No focal or lateralizing signs. Cranial nerves 2 through 12 grossly within normal limits. PSYCH: Appropriate affect. Alert and oriented to person, place and time. SKIN: Good skin turgor. Well perfused. ASSESSMENT: 1. Morbid obesity due to excess calories 2. Body mass index of 38.4 to 35.0 3. Gastroesophageal reflux disease, resolved 3. Osteoarthritis of the knees. 4. Osteoarthritis of the lower back. 5. Hypothyroidism 6. Hyperlipidemia 7. Cystocele 8. Dysphagia, resolved 9. Family history of DVTs and pulmonary embolism 10. Status post hiatal hernia repair PLAN: 1. Strict lifting restrictions for 4 pounds for 4 weeks reviewed 2. She will follow bariatric diet for optimal weight loss 3. Follow up in 1 month for dietary surveillance and counseling.
--- NOTE | 2019-09-13 13:42 | P.PN ---
Progress Note - Text Progress Note Date: 09/13/19 To whom it may concern: Ghada Boyd is under my surgical care. She will need prolonged recovery. Earliest anticipated return to work, 09/25/19. Regards, Ghada Garcia MD, FACS
[2019-09-13 14:24] VITALS: BP 106/85; PULSE 120; TEMP 98.1; BMI 34.9
== END | disposition home or self-care (01) ==
LOC: BARWHC3 12:40
PROVIDERS: ATTEND Surgery Plastic and Reconstructive Surgery
DX: E66.01 Morbid (severe) obesity due to excess calories (principal); Z48.815 Encounter for surgical aftercare following surgery on the digestive system; Z68.35 Body mass index [BMI] 35.0-35.9, adult; M17.0 Bilateral primary osteoarthritis of knee; M47.899 Other spondylosis, site unspecified; E03.9 Hypothyroidism, unspecified; E78.5 Hyperlipidemia, unspecified; N81.10 Cystocele, unspecified; Z82.49 Family history of ischemic heart disease and other diseases of the circulatory system
CPT/HCPCS: 99211

== ENCOUNTER → 2019-10-11 | Outpatient (CLI) | payer MEDICAID ==
[2019-10-11 14:22] VITALS: BP 122/86; PULSE 82; RESP 16; TEMP 97.6; BMI 34.8
--- NOTE | 2019-10-11 14:32 | P.PN ---
Subjective Progress Note Date: 10/11/19 DATE OF SERVICE: 10/11/2019 CHIEF COMPLAINT: Morbid obesity HISTORY OF PRESENT ILLNESS: Ghada Boyd is a 49-year-old female who status post hiatal hernia repair, 09/08/19. She is 1 month out. She is taking Prilosec. She reports pressure along the chest. No gastroesophageal reflux disease. She is still taking Omeprazole. At height of 5 feet 10 inches, her ideal body weight is 173 pounds. Her initial weight was 267 pounds, BMI 38.4 She comes in 242 pounds [id number] pounds, 1 month ago. She has lost 1 pounds in 1 month. Her body mass index is down from 38.4 to 34.9. She is 69 pounds overweight. PHYSICAL EXAM: VITAL SIGNS: Height 5 foot 10 inches, weight 242 pounds. BMI 34.9 Vital Signs Temp 97.6 F 10/11/19 14:20 Pulse 82 10/11/19 14:20 Resp 16 10/11/19 14:20 BP 122/86 10/11/19 14:20 Pulse Ox Intake & Output 10/11/19 10/12/19 10/12/19 18:59 06:59 18:59 Weight 110.223 kg GENERAL: Well-developed in no acute distress. HEENT: No scleral icterus. Extraocular movements grossly intact. Hears conversational speech. No nasal drainage. NECK: Supple without lymphadenopathy. CHEST: Nonlabored respirations with equal bilateral excursions. CARDIOVASCULAR: Distal 2+ pulses. ABDOMEN: Incisions are clean, dry and intact MUSCULOSKELETAL: No clubbing, cyanosis. NEURO: No focal or lateralizing signs. Cranial nerves 2 through 12 grossly within normal limits. PSYCH: Appropriate affect. Alert and oriented to person, place and time. SKIN: Good skin turgor. Well perfused. STUDIES: Esophagram reviewed without recurrent hiatal hernia. ASSESSMENT: 1. Morbid obesity due to excess calories 2. Body mass index of 38.4 to 34.9 3. Gastroesophageal reflux disease, resolved 3. Osteoarthritis of the knees. 4. Osteoarthritis of the lower back. 5. Hypothyroidism 6. Hyperlipidemia 7. Cystocele 8. Dysphagia, resolved 9. Family history of DVTs and pulmonary embolism 10. Status post hiatal hernia repair 11. Dietary surveillance and counseling PLAN: 1. She has symptoms of chest pressure. Recommend warm beverages 2. Recommend other options outside of sleeve gastrectomy reviewed. Objective - Vital Signs Vital signs: Vital Signs Temp 97.6 F 10/11/19 14:20 Pulse 82 10/11/19 14:20 Resp 16 10/11/19 14:20 BP 122/86 10/11/19 14:20 Pulse Ox Intake & Output 10/10/19 10/11/19 10/11/19 18:59 06:59 18:59 Weight 110.223 kg
== END | disposition home or self-care (01) ==
LOC: BARWHC3 13:47
PROVIDERS: ATTEND Surgery Plastic and Reconstructive Surgery
DX: Z48.815 Encounter for surgical aftercare following surgery on the digestive system (principal); E66.01 Morbid (severe) obesity due to excess calories; M17.0 Bilateral primary osteoarthritis of knee; E03.9 Hypothyroidism, unspecified; E78.5 Hyperlipidemia, unspecified; N81.10 Cystocele, unspecified; Z68.34 Body mass index [BMI] 34.0-34.9, adult; Z86.718 Personal history of other venous thrombosis and embolism; Z83.6 Family history of other diseases of the respiratory system; Z71.3 Dietary counseling and surveillance; Z98.890 Other specified postprocedural states
CPT/HCPCS: 99211

== ENCOUNTER 2020-09-09 16:53 | Emergency (ER) | payer MEDICAID ==
--- NOTE | 2020-09-09 17:48 | ED ---
General Adult HPI - General Chief complaint: Recheck/Abnormal Lab/Rx Stated complaint: COVID+/back & leg pain Time Seen by Provider: 09/09/20 17:24 Source: patient Mode of arrival: ambulatory Limitations: no limitations - History of Present Illness Initial comments: Dictation was produced using Skype dictation software. please excuse any grammatical, word or spelling errors. This patient was cared for during a federal and state declared state of emergency secondary to Covid 19 Chief Complaint: 50-year-old female presents with a chief complaint of generalized malaise. History of Present Illness: Is a 50-year-old female she has been symptomatic with Covid's for 7 days. She tested positive for coronavirus 6 days ago. She is here in emergency department for worsening symptoms of body aches. She states that she has myalgias to the left center instructed to restart her left lower extremity. Patient denies any significant comorbidities. She denies any medications on a regular basis. The ROS documented in this emergency department record has been reviewed and confirmed by me. Those systems with pertinent positive or negative responses have been documented in the HPI. All other systems are other negative and/or noncontributory. PHYSICAL EXAM: General Impression: Alert and oriented x3, not in acute distress HEENT: Normocephalic atraumatic, extra-ocular movements intact, pupils equal and reactive to light bilaterally, mucous membranes moist. Cardiovascular: Heart regular rate and rhythm Chest: Able to complete full sentences, no retractions, no tachypnea Abdomen: abdomen soft, non-tender, non-distended, no organomegaly Musculoskeletal: Pulses present and equal in all extremities, no peripheral edema Motor: no focal deficits noted Neurological: CN II-XII grossly intact, no focal motor or sensory deficits noted Skin: Intact with no visualized rashes Psych: Normal affect and mood ED course: 50 female presents with Covid 19. She is not hypoxic. Her BMI is greater than 35. Vital signs upon arrival shows saturation 98% on room air. Heart rate of 14, rest of vital signs within acceptable limits. She is a candidate for monoclonal antibodies. She is agreeable for infusion. Laboratory evaluation obtained. CBC, metabolic panel, urinalysis unremarkable. Chest x-ray shows really exam but no acute process. Patient is a BMI greater than 35. Patient is a candidate for monoclonal antibodies. Patient will be provided with the infusion. She is observed in the emergency Department 1 hour after the infusion. Patient reevaluated at 10:00 PM findings stable medical condition. Patient was discharged. Patient told to quarantine and contact her employer for with Dr. boston Crain prior to going back to work. - Related Data Home Medications Medication Instructions Recorded Confirmed Levothyroxine Sodium [Synthroid] 150 mcg PO DAILY 03/24/16 09/09/20 Allergies Allergy/AdvReac Type Severity Reaction Status Date / Time influenza virus vaccine, Allergy PROBLEMS Verified 09/09/20 18:17 specific WITH VOICE [influenza virus " vacc,specific] Review of Systems ROS Statement: Those systems with pertinent positive or pertinent negative responses have been documented in the HPI. ROS Other: All systems not noted in ROS Statement are negative. Past Medical History Past Medical History: GERD/Reflux, Hyperlipidemia, Osteoarthritis (OA), Thyroid Disorder Additional Past Medical History / Comment(s): H-pylori 2020, vertigo, migraines. OA hips. hiatal hernia repaired History of Any Multi-Drug Resistant Organisms: None Reported Past Surgical History: Appendectomy, Back Surgery, Hernia Repair, Hysterectomy, Tonsillectomy, Uterine Ablation Additional Past Surgical History / Comment(s): LAMINECTOMY. EGD 07/17/19 hiatal hernia repair hiatal hernia repair 09-08-19 Past Anesthesia/Blood Transfusion Reactions: Motion Sickness Past Psychological History: Anxiety Smoking Status: Never smoker Past Alcohol Use History: Rare Past Drug Use History: None Reported - Past Family History Father Family Medical History: Deep Vein Thrombosis (DVT) Mother Family Medical History: Pulmonary Embolus Additional Family Medical History / Comment(s): Emphysema, patient states mother passed when she was 68. General Exam Limitations: no limitations Course Vital Signs 09/09/20 09/09/20 09/09/20 16:56 18:59 20:48 Temperature 98.6 F 99.1 F Pulse Rate 104 H 93 100 Respiratory 18 20 20 Rate Blood Pressure 122/79 127/87 125/87 O2 Sat by Pulse 98 98 97 Oximetry Medical Decision Making - Lab Data Result diagrams: 09/09/20 18:08 09/09/20 18:08 Lab Results 09/09/20 09/09/20 09/09/20 Range/Units 18:01 18:08 18:08 WBC 6.5 (3.8-10.6) k/uL RBC 5.31 (3.80-5.40) m/uL Hgb 15.2 (11.4-16.0) gm/dL Hct 45.7 (34.0-46.0) % MCV 86.0 (80.0-100.0) fL MCH 28.6 (25.0-35.0) pg MCHC 33.2 (31.0-37.0) g/dL RDW 13.2 (11.5-15.5) % Plt Count 194 (150-450) k/uL MPV 8.2 Neutrophils % 60 % Lymphocytes % 31 % Monocytes % 6 % Eosinophils % 1 % Basophils % 1 % Neutrophils # 3.9 (1.3-7.7) k/uL Lymphocytes # 2.0 (1.0-4.8) k/uL Monocytes # 0.4 (0-1.0) k/uL Eosinophils # 0.0 (0-0.7) k/uL Basophils # 0.0 (0-0.2) k/uL Sodium 138 (137-145) mmol/L Potassium 4.3 (3.5-5.1) mmol/L Chloride 103 (98-107) mmol/L Carbon Dioxide 25 (22-30) mmol/L Anion Gap 10 mmol/L BUN 14 (7-17) mg/dL Creatinine 0.65 (0.52-1.04) mg/dL Est GFR (CKD-EPI)AfAm >90 (>60 ml/min/1.73 sqM) Est GFR (CKD-EPI)NonAf >90 (>60 ml/min/1.73 sqM) Glucose 90 (74-99) mg/dL Calcium 9.1 (8.4-10.2) mg/dL Urine Color Yellow Urine Appearance Clear (Clear) Urine pH 5.5 (5.0-8.0) Ur Specific [place] 1.021 (1.001-1.035) Urine Protein Negative (Negative) Urine Glucose (UA) Negative (Negative) Urine Ketones Negative (Negative) Urine Blood Negative (Negative) Urine Nitrite Negative (Negative) Urine Bilirubin Negative (Negative) Urine Urobilinogen <2.0 (<2.0) mg/dL Ur Leukocyte Esterase Negative (Negative) Disposition Clinical Impression: COVID-19 Disposition: HOME SELF-CARE Condition: Fair Instructions (If sedation given, give patient instructions): Viral Pneumonia (ED) Additional Instructions: Today you were evaluated for symptoms consistent with upper respiratory infection. Today you tested positive for Covid 19. Your are stable for discha rge, however it is instructed to to seek immediate medical attention especially if you develop worsening symptoms especially respiratory distress. If possible, try to obtain a pulse oximeter and monitor your oxygen at home. In the meantime please remain in quarantine for 14 days. For any other questions please contact [facility] for here in emergency department or [facility] at [phone] Is patient prescribed a controlled substance at d/c from ED?: No Referrals: Farhan Leonardo DO [Primary Care Provider] - 1-2 days Time of Disposition: 22:05
[2020-09-09 18:13] LABS: Appearance,Urine Clear (Clear); Bilirubin,Urine Negative (Negative); Blood,Urine Negative (Negative); Color,Urine Yellow; Glucose,Urine (UA) Negative (Negative); Ketones,Urine Negative (Negative); Leukocyte Esterase,Urine Negative (Negative); Nitrite,Urine Negative (Negative); PH, Urine 5.5 (5.0-8.0); Protein,Urine Negative (Negative); Specific Gravity,Urine 1.021 (1.001-1.035); Urobilinogen,Urine <2.0 mg/dL (<2.0)
[2020-09-09 18:21] LABS: Basophils % (A) 1 %; Eosinophils % (A) 1 %; HCT 45.7 % (34.0-46.0); HGB 15.2 gm/dL (11.4-16.0); Lymphocytes % (A) 31 %; MCH 28.6 pg (25.0-35.0); MCHC 33.2 g/dL (31.0-37.0); Mean Platelet Volume 8.2; Monocytes # (A) 0.4 k/uL (0-1.0); Monocytes % (A) 6 %; Neutrophils # (A) 3.9 k/uL (1.3-7.7); Neutrophils % (A) 60 %; Platelet Count 194 k/uL (150-450); RBC 5.31 m/uL (3.80-5.40); RDW 13.2 % (11.5-15.5); WBC 6.5 k/uL (3.8-10.6)
[2020-09-09 18:30] LABS: African American GFR (CKD) >90 (>60 ml/min/1.73 sqM); Anion Gap 10 mmol/L; Blood Urea Nitrogen 14 mg/dL (7-17); Calcium 9.1 mg/dL (8.4-10.2); Carbon Dioxide 25 mmol/L (22-30); Chloride 103 mmol/L (98-107); Glucose 90 mg/dL (74-99); Non-African American GFR(CKD) >90 (>60 ml/min/1.73 sqM); Potassium 4.3 mmol/L (3.5-5.1); Sodium 138 mmol/L (137-145)
[2020-09-09 19:00] VITALS: RESP 20
--- NOTE | 2020-09-09 19:22 | XR ---
EXAMINATION TYPE: XR chest 1V portable DATE OF EXAM: 09/09/2020 COMPARISON: 12/30/2018 HISTORY: Cough. Short of breath. TECHNIQUE: Single view FINDINGS: Heart and mediastinum are normal. Exam limited by patient's size. Lungs appear clear of con solidation. There are no hilar masses. There is increased density over the lower lung crow that cou ld be due to overlying soft tissue. The bony thorax is intact. IMPRESSION: Limited exam. No active cardiopulmonary disease. No adverse change.
[2020-09-09] MEDS ORDERED: BAMLANIVIMAB 700 MG in SODIUM CHLORIDE 0.9% 50 ML IVPB ONE (20:30)
[2020-09-09] MEDS ORDERED: ACETAMINOPHEN TAB 500 MG TAB PO STA (20:41)
[2020-09-09 22:31] VITALS: BP 120/69; PULSE 90; TEMP 99.4
== END 2020-09-09 22:30 | disposition home or self-care (01) ==
LOC: EC 16:53
DX: U07.1 COVID-19 (principal); E78.5 Hyperlipidemia, unspecified; K21.9 Gastro-esophageal reflux disease without esophagitis; F41.9 Anxiety disorder, unspecified
CPT/HCPCS: 36415; 80048; 85025; 81003; 71045; 99284; Q0239

== ENCOUNTER → 2021-02-28 | Outpatient (CLI) | payer MEDICAID ==
--- NOTE | 2021-02-28 09:52 | CT ---
EXAMINATION TYPE: CT abdomen pelvis w con DATE OF EXAM: 02/28/2021 COMPARISON: None HISTORY: Pelvic pain, nausea CT DLP: 1894.7 mGycm CONTRAST: CT scan of the abdomen and pelvis is performed with Oral Contrast and with IV Contrast, patient injec simin with 100 mL of Isovue 300. FINDINGS: LUNG BASES-: No visible nodule. No infiltrate. Calcified granuloma left lower lobe. LIVER/GB: No calcified gallstones. Hepatic steatosis noted. No space occupying hepatic lesion. Osorio iary tree is of normal caliber. PANCREAS: No inflammation. No distinct mass. SPLEEN: No splenic enlargement. No lesion seen. ADRENALS: No nodule. No thickening. KIDNEYS/BLADDER: No hydronephrosis. No nephrolithiasis. No distinct renal mass. Urinary bladder g rossly unremarkable. BOWEL: Normal appendix. Mild inflammatory change involving the sigmoid colon with wall thickening com patible with mild diverticulitis. No evidence for abscess or perforation. GENITAL ORGANS: No gross abnormality. LYMPH NODES: No greater than 1cm abdominal or pelvic lymph nodes are appreciated. AORTA: No significant abnormality. OSSEOUS STRUCTURES: No significant abnormality is seen. OTHER: No significant additional abnormality is seen. IMPRESSION: 1. Changes of mild uncomplicated sigmoid diverticulitis.
== END | disposition home or self-care (01) ==
LOC: RADCTMAIN 07:20
PROVIDERS: ATTEND Family Medicine
DX: K57.32 Diverticulitis of large intestine without perforation or abscess without bleeding (principal)
CPT/HCPCS: 74177; Q9967

== ENCOUNTER 2021-04-16 08:01 | Day surgery (SDC) | payer MEDICAID ==
[2021-04-11 15:21] VITALS: BMI 37.3
[~2021-04-16 08:01] MED LIST changes: -ACETAMINOPHEN TAB 500 MG TAB PO STA; -CHLORHEXIDINE GLUCONATE 15 ML CUP MUCOUS MEM ONE; -DEXAMETHASONE SOD PHOSPHATE 10 MG/ML 1 ML VIAL IV ONE; -GABAPENTIN 300 MG CAP PO STA; -HEPARIN SODIUM,PORCINE 5,000 UNIT/ML 1 ML VIAL SQ ONE; -HYDROmorphone 0.5 MG/0.5 ML SYRINGE IVP PRN; +LACTATED RINGERS 1,000 ML IV SCH; -ONDANSETRON 4 MG/2 ML VIAL IVP ONE; -PANTOPRAZOLE 40 MG/10 ML VIAL IV STA; -Pre Op ABX Message 1 EACH MISC MISCELLANE ONE; -SCOPOLAMINE 1.5MG/72HR PATCH TRANSDERM ONE; -SCOPOLAMINE 1.5MG/72HR PATCH TRANSDERM STA
[2021-04-16 08:20] VITALS: TEMP 97.5
[2021-04-16] MEDS ORDERED: PROPOFOL 10 MG/ML 20 ML VIAL IV ONE (08:57)
--- NOTE | 2021-04-16 09:02 | P.GSHP ---
History of Present Illness H&P Date: 04/16/21 CHIEF COMPLAINT: Colon screen HISTORY OF PRESENT ILLNESS: The patient is a 50-year-old female who presents for colon screen. Lower endoscopy was offered for further evaluation and management. PAST MEDICAL HISTORY: Please see list. PAST SURGICAL HISTORY: Please see list. MEDICATIONS: Please see list. ALLERGIES: Please see list. SOCIAL HISTORY: No illicit drug use FAMILY HISTORY: No reports of Crohn disease or ulcerative colitis. REVIEW OF ORGAN SYSTEMS: CONSTITUTIONAL: No reports of fevers or chills. PHYSICAL EXAM: VITAL SIGNS: Stable GENERAL: Well-developed pleasant in no acute distress. HEENT: No scleral icterus. Extraocular movements grossly intact. Moist buccal mucosa. NECK: Supple without lymphadenopathy. CHEST: Unlabored respirations. Equal bilateral excursions. CARDIOVASCULAR: Regular rate and rhythm. Distal 2+ pulses. ABDOMEN: Soft, nontender, nondistended. MUSCULOSKELETAL: No clubbing, cyanosis, or edema. ASSESSMENT: 1. Colon screen. PLAN: 1. Recommend proceeding with a lower endoscopy Past Medical History Past Medical History: GERD/Reflux, Hyperlipidemia, Osteoarthritis (OA), Sleep Apnea/CPAP/BIPAP, Thyroid Disorder Additional Past Medical History / Comment(s): H-pylori 2020, vertigo, migraines. no cpap used, recent dx diverticulitis, History of Any Multi-Drug Resistant Organisms: None Reported Past Surgical History: Appendectomy, Back Surgery, Cholecystectomy, Hernia Repair, Hysterectomy, Tonsillectomy, Uterine Ablation Additional Past Surgical History / Comment(s): LAMINECTOMY. EGD, hiatal hernia repair 09-08-19, Past Anesthesia/Blood Transfusion Reactions: Motion Sickness, Postoperative Nausea & Vomiting (PONV) Smoking Status: Never smoker - Past Family History Father Family Medical History: Deep Vein Thrombosis (DVT) Mother Family Medical History: Pulmonary Embolus Additional Family Medical History / Comment(s): . Medications and Allergies Home Medications Medication Instructions Recorded Confirmed Type Levothyroxine Sodium [Synthroid] 150 mcg PO DAILY 03/24/16 04/16/21 History Multivitamins, Thera [Multivitamin 1 tab PO DAILY 04/11/21 04/16/21 History (formulary)] Allergies Allergy/AdvReac Type Severity Reaction Status Date / Time influenza virus vaccine, Allergy PROBLEMS Verified 04/16/21 08:21 specific WITH VOICE [influenza virus " vacc,specific] Surgical - Exam Vital Signs Temp Pulse Resp BP Pulse Ox 97.5 F L 58 L 16 134/71 94 L 04/16/21 08:18 04/16/21 08:18 04/16/21 08:18 04/16/21 08:18 04/16/21 08:18
[2021-04-16 09:36] VITALS: BP 128/88; PULSE 77; RESP 16
--- NOTE | 2021-04-16 09:44 | P.PCN ---
Date of Procedure: 04/16/21 Description of Procedure: PREOPERATIVE DIAGNOSIS: Family history of diverticulitis Personal history of diverticulitis Colonoscopy screening POSTOPERATIVE DIAGNOSIS: Tubal adenoma, ascending colon Sigmoid diverticulosis OPERATION: Colonoscopy to the ileocecal valve and appendiceal orifice, cecum Colonoscopy with hot snare polypectomy SURGEON: Ghada Garcia MD. ANESTHESIA: MAC. INDICATIONS: The patient is an 50-year-old Aakash female who presents for her first colonoscopy screening. She reports passage of diverticulitis and family history of diverticulitis. Benefits and risks were described and informed consent was obtained. DESCRIPTION OF PROCEDURE: The patient had undergone Sutab prep. The patient had been brought into the operating room and laid in the left lateral decubitus position. After adequate intravenous sedation, the rectum was examined with 2% lidocaine jelly. The prostate was unremarkable. No external hemorrhoids were encountered. The rectal tone was within normal limits. No lesions were palpated in the rectal vault. An Olympus colonoscope was advanced until the cecum, ileocecal valve and appendiceal orifice were clearly viewed. The prep was good. Sigmoid diverticulosis was encountered. Colonic polyps were found and removed. No evidence of focal colitis was found. Retroflexion of the scope demonstrated grade 1 internal hemorrhoids without active bleeding or inflammation. The colon was desufflated. The patient had tolerated the procedure well. Withdrawal time was over 6 minutes. FINDINGS: Aronchick preparation quality scale 2 (1-5) Internal hemorrhoids, grade 1 No external hemorrhoids No arteriovenous malformations. Sigmoid diverticulosis Removal of 1 polyp: - Snare polypectomy ascending colon, 8 mm tubulovillous adenoma polyp, removed in piecemeal. No focal colitis. RECOMMENDATIONS: Repeat colonoscopy 3 years, 2023 Plan - Discharge Summary New Discharge Prescriptions: Continue Levothyroxine Sodium [Synthroid] 150 mcg PO DAILY Multivitamins, Thera [Multivitamin (formulary)] 1 tab PO DAILY Discharge Medication List Levothyroxine Sodium [Synthroid] 150 mcg PO DAILY 03/24/16 [History] Multivitamins, Thera [Multivitamin (formulary)] 1 tab PO DAILY 04/11/21 [History] Follow up Appointment(s)/Referral(s): [place], [place] [NON-STAFF] - 04/23/21 () Patient Instructions/Handouts: *Surgery [facility] - (Anesthesia) Endoscopy Discharge Instructions, Diverticulosis (DC), Colorectal Polyps (DC), Diverticulosis Diet (GEN), Colonoscopy (DC) Activity/Diet/Wound Care/Special Instructions: Repeat colonoscopy in 3 years, 2023 Discharge Disposition: HOME SELF-CARE
== END 2021-04-16 09:57 | disposition home or self-care (01) ==
LOC: ORWHC2ENDO 08:01
PROVIDERS: ATTEND Surgery Plastic and Reconstructive Surgery
DX: Z12.11 Encounter for screening for malignant neoplasm of colon (principal); D12.2 Benign neoplasm of ascending colon; K57.30 Diverticulosis of large intestine without perforation or abscess without bleeding; E78.5 Hyperlipidemia, unspecified; G47.30 Sleep apnea, unspecified; K21.9 Gastro-esophageal reflux disease without esophagitis; E07.9 Disorder of thyroid, unspecified; M19.90 Unspecified osteoarthritis, unspecified site; Z90.49 Acquired absence of other specified parts of digestive tract
CPT/HCPCS: 45385; 88305; J2704

== ENCOUNTER → 2021-04-24 | Outpatient (CLI) | payer MEDICAID, OTHER | END | disposition home or self-care (01) | LOC: LABWHC1 16:40 | PROVIDERS: ATTEND Emergency Medicine | DX: Z20.822 Contact with and (suspected) exposure to COVID-19 (principal) | CPT/HCPCS: 87635 ==

== ENCOUNTER → 2021-04-25 | Outpatient (CLI) | payer MEDICAID, OTHER | END | disposition home or self-care (01) | LOC: LABWHC1 17:10 | PROVIDERS: ATTEND Emergency Medicine | DX: Z20.822 Contact with and (suspected) exposure to COVID-19 (principal) | CPT/HCPCS: 87635 ==

== ENCOUNTER → 2021-05-06 | Outpatient (CLI) | payer MEDICAID ==
--- NOTE | 2021-05-06 16:08 | XR ---
EXAMINATION TYPE: XR chest 2V DATE OF EXAM: 05/06/2021 COMPARISON: Chest x-ray 09/09/2020 HISTORY: [id number] COUGH,BRONCHITIS,SLEEP APNEA TECHNIQUE: Frontal and lateral views of the chest are obtained. FINDINGS: There is no focal air space opacity, pleural effusion, or pneumothorax seen. The cardiac silhouette size is within normal limits. The osseous structures are intact. IMPRESSION: No acute cardiopulmonary process.
== END | disposition home or self-care (01) ==
LOC: RADXRYALE 15:19
PROVIDERS: ATTEND Family Medicine
DX: G47.30 Sleep apnea, unspecified (principal)
CPT/HCPCS: 71046

== ENCOUNTER → 2021-05-08 | Outpatient (CLI) | payer MEDICAID ==
[2021-05-08 08:14] LABS: INR 0.9 (<1.2); Partial Thromboplastin Time 24.1 sec (22.0-30.0); Prothrombin Time 9.6 sec (9.0-12.0)
[2021-05-08 11:30] LABS: HCT 45.4 % (37.2-46.3); HGB 13.4 g/dL (12.0-15.0); MCH 26.6 pg (27.0-32.0); MCHC 29.5 g/dL (32.0-37.0); MCV 90.1 fL (80.0-97.0); Mean Platelet Volume 11.1 fL (9.5-12.2); Platelet Count 317 X 10*3/uL (140-440); RBC 5.04 X 10*6/uL (4.10-5.20); RDW 14.5 % (11.5-14.5); WBC 9.77 X 10*3/uL (4.50-10.00)
[2021-05-08 13:34] LABS: % Iron Saturation 29.53 (12.00-45.00); Chloride 105 mmol/L (96-109); Glucose 94 mg/dL (70-110); Iron 89 ug/dL (50-170); Potassium 3.8 mmol/L (3.5-5.5); Sodium 143 mmol/L (135-145); Total Iron Binding Capacity 301 ug/dL (228-460)
[2021-05-08 13:35] LABS: ALT 26 U/L (8-44); AST 15 U/L (13-35); African American GFR (CKD) 107.7 (60.0-200.0); Albumin 4.2 g/dL (3.8-4.9); Albumin/Globulin Ratio 1.96 (1.60-3.17); Alkaline Phosphatase 110 U/L (41-126); BUN/Creat Ratio 23.73 Ratio (12.00-20.00); Blood Urea Nitrogen 17.8 mg/dL (9.0-27.0); Calcium 9.1 mg/dL (8.7-10.3); Carbon Dioxide 26.6 mmol/L (21.6-31.8); Chol/HDL Ratio 3.93 Ratio; Globulin 2.1 g/dL (1.6-3.3); LDL Cholesterol,Calculated 144.4 mg/dL (0.0-131.0); Magnesium 2.1 mg/dL (1.5-2.4); Non-African American GFR(CKD) 92.9 (60.0-200.0); Phosphorus 3.3 mg/dL (2.4-5.1); Prealbumin 21.3 mg/dL (18.0-42.0); Total Protein 6.3 g/dL (6.2-8.2)
[2021-05-08 13:53] LABS: Folate, Serum >20.00 ng/mL (4.40-31.00)
[2021-05-09 13:25] LABS: Zinc, Serum 72 ug/dL (60-130)
[2021-05-09 15:02] LABS: Anabasine Urine <2.0 ng/mL (<2.0)
[2021-05-10 13:52] LABS: Vit B1(Thiamine) 79 ug/L (38-122)
== END | disposition home or self-care (01) ==
LOC: LABWHC1 07:14
PROVIDERS: ATTEND Surgery Plastic and Reconstructive Surgery
DX: E66.01 Morbid (severe) obesity due to excess calories (principal); E89.1 Postprocedural hypoinsulinemia; D50.8 Other iron deficiency anemias; K90.89 Other intestinal malabsorption; E55.9 Vitamin D deficiency, unspecified; K74.1 Hepatic sclerosis; N19 Unspecified kidney failure; K50.90 Crohn's disease, unspecified, without complications; Z71.51 Drug abuse counseling and surveillance of drug abuser
CPT/HCPCS: 36415; 80053; 80061; 80323; 82306; 82525; 82607; 82728; 82746; 83036; 83540; 83550; 83735; 83970; 84100; 84134; 84255; 84425; 84443; 84590; 84630; 85027; 85610; 85730; 93005

== ENCOUNTER 2021-05-27 06:35 | Emergency (ER) | payer MEDICAID ==
[2021-05-27 07:36] VITALS: BP 121/86; PULSE 102; RESP 18; TEMP 97.9
--- NOTE | 2021-05-27 08:04 | XR ---
EXAMINATION TYPE: XR chest 2V DATE OF EXAM: 05/27/2021 COMPARISON: 05/06/2021 TECHNIQUE: PA and lateral views submitted. HISTORY: Cough FINDINGS: The lungs are clear and there is no pneumothorax, pleural effusion, or focal pneumonia. Heart size normal. No overt failure. Hypertrophic and degenerative change IMPRESSION: 1. No acute mildly coarsened interstitium. Infiltrate. There is slightly coarsened interstitium which could be associated with mild bronchitis or interstitial pneumonitis..
== END 2021-05-27 12:15 | disposition left against medical advice (07) ==
LOC: EC 06:35
DX: R05.9 Cough, unspecified (principal); R09.89 Other specified symptoms and signs involving the circulatory and respiratory systems; Z53.21 Procedure and treatment not carried out due to patient leaving prior to being seen by health care provider
CPT/HCPCS: 71046; 87635; 99499

== ENCOUNTER → 2021-09-16 | Outpatient (CLI) | payer MEDICAID ==
--- NOTE | 2021-09-17 09:13 | XR ---
EXAMINATION TYPE: XR mandible complete DATE OF EXAM: 09/16/2021 COMPARISON: NONE HISTORY: Pain TECHNIQUE: 8 views submitted FINDINGS: Mandibles intact. There is no acute fracture or dislocation. Osseous structures are intact. There is slight asymmetry of the TMJ joints. IMPRESSION: 1. There is asymmetry of the TMJ joints recommend CT of the facial bones to assess the TMJ.
== END | disposition home or self-care (01) ==
LOC: RADXRYALE 16:34
PROVIDERS: ATTEND Family Medicine
DX: M26.12 Other jaw asymmetry (principal)
CPT/HCPCS: 70110

== ENCOUNTER → 2021-10-22 | Outpatient (CLI) | payer MEDICAID ==
--- NOTE | 2021-10-22 14:42 | CT ---
EXAMINATION TYPE: CT facial bones wo con DATE OF EXAM: 10/22/2021 COMPARISON: Mandible x-ray September 16, 2021 HISTORY: abnormal dental xray, right sided tooth ache CT DLP: 603 mGycm. Automated Exposure Control for Dose Reduction was Utilized. TECHNIQUE: CT scan of the facial bones is performed without contrast, axial images are obtained, wood nal reformatted images are also reviewed. FINDINGS: There is confirmation of slight asymmetry or increased narrowing of the left temporomandibu lar joint coronal image 44 versus opposite right sided. No significant spurring or erosive changes id entified. Mandibular condyle position is normal in location bilaterally. There is streak artifact from cavitary fillings and crowns in the bilateral maxillary and mandibular teeth. No suspicious focal osseous lesions. Visualized paranasal sinuses are grossly clear. The globes are intact bilaterally. Visualized portion of brain parenchyma is unremarkable. IMPRESSION: As above.
== END | disposition home or self-care (01) ==
LOC: RADCTMAIN 13:25
PROVIDERS: ATTEND Family Medicine
DX: K08.89 Other specified disorders of teeth and supporting structures (principal); R93.0 Abnormal findings on diagnostic imaging of skull and head, not elsewhere classified
CPT/HCPCS: 70486

== ENCOUNTER → 2021-10-22 | Outpatient (CLI) | payer MEDICAID ==
--- NOTE | 2021-10-22 13:36 | P.GSHP ---
History of Present Illness H&P Date: 10/22/21 DATE OF SERVICE: 10/22/2021 CHIEF COMPLAINT: Morbid obesity HISTORY OF PRESENT ILLNESS: Ghada Boyd is a 51-year-old female who comes with lifelong morbid obesity. As a result of her obesity, she has developed osteoarthritis and hyperlipidemia, osteoarthritis of the hip and lower back. She comes in with weight of 273 pounds. She has continue medical supervised weight loss. She brings in her food diary with protein intake los 36 to 50 grams. She is looking into gastric bypass due to moderate severe recurrent gastroesophageal reflux disease At height of 5 feet 10 inches, her ideal body weight is 173 pounds. Her highest weight is 272 pounds, body mass index 39.2. She comes in 272 pounds from 269 pounds, 3 months ago. She has gained 3 pounds in 3 months. Her body mass index is 39.2. She is 99 pounds overweight. PHYSICAL EXAM: VITAL SIGNS: Height 5 foot 10 inches, weight 272 pounds. BMI 39.2 Vital Signs Temp 98 F 10/22/21 13:51 Pulse 93 10/22/21 13:51 Resp BP 116/80 10/22/21 13:51 Pulse Ox Intake & Output 10/22/21 10/22/21 10/23/21 06:59 18:59 06:59 Weight 123.831 kg GENERAL: Well-developed in no acute distress. HEENT: No scleral icterus. Extraocular movements grossly intact. Hears conversational speech. No nasal drainage. NECK: Supple without lymphadenopathy. CHEST: Nonlabored respirations with equal bilateral excursions. CARDIOVASCULAR: Regular rate and regular rhythm. Distal 2+ pulses. ABDOMEN: Obese, soft, nontender, nondistended. MUSCULOSKELETAL: No clubbing, cyanosis. NEURO: No focal or lateralizing signs. Cranial nerves 2 through 12 grossly within normal limits. PSYCH: Appropriate affect. Alert and oriented to person, place and time. SKIN: Good skin turgor. Well perfused. ASSESSMENT: 1. Morbid obesity due to excess calories 2. Body mass index of 39.2 3. Gastroesophageal reflux disease 3. Osteoarthritis of the knees. 4. Osteoarthritis of the lower back. 5. Hypothyroidism 6. Hyperlipidemia 7. Cystocele 8. Dysphagia 9. Family history of DVTs and pulmonary embolism 10. Family history of morbid obesity 11. H. pylori gastritis 12. Hypercholesterolemia 13. Vitamin D deficiency PLAN: 1. She is completing her medical supervised weight loss. 2. Recommend two-week high low-carb diet reviewed. 3. She is looking into gastric bypass due to moderate severe reflux disease. Past Medical History Past Medical History: GERD/Reflux, Hyperlipidemia, Osteoarthritis (OA), Sleep Apnea/CPAP/BIPAP, Thyroid Disorder Additional Past Medical History / Comment(s): H-pylori 2020, vertigo, migraines. no cpap used, recent dx diverticulitis, colonoscopy 04/16/21. History of Any Multi-Drug Resistant Organisms: None Reported Past Surgical History: Appendectomy, Back Surgery, Cholecystectomy, Hernia Repair, Hysterectomy, Tonsillectomy, Uterine Ablation Additional Past Surgical History / Comment(s): LAMINECTOMY. EGD, hiatal hernia repair 09-08-19, Past Anesthesia/Blood Transfusion Reactions: Motion Sickness, Postoperative Nausea & Vomiting (PONV) Past Psychological History: No Psychological Hx Reported Additional Psychological History / Comment(s): denies Smoking Status: Never smoker Past Alcohol Use History: Rare Past Drug Use History: None Reported - Past Family History Father Family Medical History: Deep Vein Thrombosis (DVT) Mother Family Medical History: Pulmonary Embolus Additional Family Medical History / Comment(s): . Medications and Allergies Home Medications Medication Instructions Recorded Confirmed Type Levothyroxine Sodium [Synthroid] 150 mcg PO DAILY 03/24/16 07/24/21 History Multivitamins, Thera [Multivitamin 1 tab PO DAILY 04/11/21 07/24/21 History (formulary)] Allergies Allergy/AdvReac Type Severity Reaction Status Date / Time influenza virus vaccine, Allergy PROBLEMS Verified 05/27/21 07:36 specific WITH VOICE [influenza virus " vacc,specific]
[2021-10-22 13:53] VITALS: BP 116/80; PULSE 93; TEMP 98; BMI 39.2
== END ==
LOC: BARWHC3 12:21
PROVIDERS: ATTEND Surgery Plastic and Reconstructive Surgery
DX: E66.01 Morbid (severe) obesity due to excess calories (principal); E03.9 Hypothyroidism, unspecified; E55.9 Vitamin D deficiency, unspecified; E78.00 Pure hypercholesterolemia, unspecified; E78.5 Hyperlipidemia, unspecified; G47.30 Sleep apnea, unspecified; K21.9 Gastro-esophageal reflux disease without esophagitis; K29.70 Gastritis, unspecified, without bleeding; M17.0 Bilateral primary osteoarthritis of knee; N81.10 Cystocele, unspecified; R13.10 Dysphagia, unspecified; Z68.39 Body mass index [BMI] 39.0-39.9, adult; M45.7 Ankylosing spondylitis of lumbosacral region; B96.81 Helicobacter pylori [H. pylori] as the cause of diseases classified elsewhere; G43.909 Migraine, unspecified, not intractable, without status migrainosus; Z79.890 Hormone replacement therapy; Z88.7 Allergy status to serum and vaccine; Z87.891 Personal history of nicotine dependence
CPT/HCPCS: 99211

== ENCOUNTER → 2021-11-03 | Outpatient (CLI) | payer MEDICAID ==
[2021-11-03 10:50] VITALS: BMI 38.4
== END ==
LOC: BARWHC3 08:45
PROVIDERS: ATTEND Surgery Plastic and Reconstructive Surgery
DX: E66.01 Morbid (severe) obesity due to excess calories (principal); Z71.3 Dietary counseling and surveillance; Z68.38 Body mass index [BMI] 38.0-38.9, adult; Z88.7 Allergy status to serum and vaccine; Z87.891 Personal history of nicotine dependence
CPT/HCPCS: 97804

== ENCOUNTER → 2022-12-02 | Outpatient (CLI) | payer MEDICAID ==
--- NOTE | 2023-01-04 10:48 | EM ---
EVENT MONITOR THIRTY-DAY EVENT MONITOR: INDICATION: Palpitations. The patient wore this monitor for 14 days. Available strips show sinus rhythm with PVCs, episodes of sinus tachycardia. CONCLUSION: This 30-day event monitor reveals sinus rhythm with PVCs, PACs, and episodes of sinus tachycardia. MMSIN / JAE: [id number] /
== END | disposition home or self-care (01) ==
LOC: RADECHMAIN 07:46
PROVIDERS: ATTEND Family Medicine
DX: I49.3 Ventricular premature depolarization (principal); I47.1 Supraventricular tachycardia; I49.1 Atrial premature depolarization; R00.2 Palpitations; R07.89 Other chest pain
CPT/HCPCS: 93270

== ENCOUNTER → 2023-03-09 | Outpatient (CLI) | payer MEDICAID ==
--- NOTE | 2023-03-09 12:07 | CA ---
Stress Echo Report Ghada Boyd Age: 52 Gender: F : 1970 Exam Date: 03/09/2023 09:27 Exam Location: [place] [facility] Ht (in): 70 Wt (lb): 278 Ordering Physician: Benjie Lorenzo MD ([id number]) Referring Physician: Bj CUBA Critical Systems Technician: Savana Little RDCS Technologist Procedure CPT: Indication: R07.2 Precordial pain ICD-9 Codes: Rhythm: Patient History: Tachycardia Cardiac Medications: Medications in past 24 hours: Contrast: Stress Results Protocol: Carson Total dose(mL): Exercise Duration (min:sec): 5:[address] Depression (mm): Angina Score: Wilks Score: METS: 7.0 Resting HR: 99 Resting BP: 121 / 70 Peak HR: 155 Peak BP: 167 / 65 Max Predicted HR: 168 92 % Max Predicted HR Target HR: 143 Double Product: [id number] Stress Summary: The patient's target heart rate was achieved BP Response: Normal Reason for Termination: Reached target heart rate or work-load Cardiac Symptoms: Dyspnea ECG Analysis Resting ECG: Normal sinus rhythm, normal ECG Stress ECG: No abnormal ST/T wave changes with exercise Arrhythmia: None Echo Analysis Resting Echo: Normal resting echocardiogram. Peak Echo Analysis: Normal wall thickening and motion MEASUREMENTS (Male/Female) Normal Values CONCLUSIONS No ECG evidence of ischemia with exercise. Normal treadmill stress echocardiogram. Dr. Kristin Shelton MD (Electronically Signed) Final Date: 09 March 2023 12:06
== END | disposition home or self-care (01) ==
LOC: RADNMMAIN 09:01
PROVIDERS: ATTEND Internal Medicine Cardiovascular Disease
DX: R07.2 Precordial pain (principal)
CPT/HCPCS: 93351

== ENCOUNTER → 2023-07-06 | Outpatient (CLI) | payer MEDICAID ==
--- NOTE | 2023-07-11 14:19 | MM ---
Reason for Exam: Screening (asymptomatic). Last mammogram was performed 4 year(s) and 1 month(s) ago. Patient History: Menarche at age 16. First Full-Term at age 20. Hysterectomy at age 45. Maternal cousin had breast cancer, age 34. Maternal aunt had breast cancer, age 75. Risk Values: Liana 5 year model risk: 0.9%. NCI Lifetime model risk: 7.0%. Prior Study Comparison: 07/18/2014 Bilateral Screening Mammogram, [facility]. 07/15/2016 Bilateral Screening Mammogram, [facility]. 06/14/2019 Bilateral Screening Mammogram, [facility]. Tissue Density: There are scattered fibroglandular densities. Findings: Analyzed By CAD. The pattern is symmetrical and stable. No significant interval changes. No suspicious groups of microcalcifications, spiculated or lobular masses, architectural distortion or other secondary signs of malignancy are mammographically apparent. Overall Assessment: Benign, BI-RAD 2 Management: Screening Mammogram of both breasts in 1 year. A negative mammogram report should not preclude additional follow up of suspicious palpable abnormalities. Patient should continue monthly self breast exam. A clinical breast exam by your physician is recommended on an annual basis and results should be correlated with mammographic findings. Electronically signed and approved by: Francesco Nixon D.O. Radiologis
== END | disposition home or self-care (01) ==
LOC: RADMAMWWP 15:28
PROVIDERS: ATTEND Family Medicine
DX: Z12.31 Encounter for screening mammogram for malignant neoplasm of breast (principal); Z80.3 Family history of malignant neoplasm of breast
CPT/HCPCS: 77063; 77067

== ENCOUNTER → 2023-08-10 | Outpatient (CLI) | payer MEDICAID ==
--- NOTE | 2023-08-10 14:53 | XR ---
EXAMINATION TYPE: XR cervical spine comp DATE OF EXAM: 08/10/2023 1:23 PM CLINICAL INDICATION:Female, 53 years old with history of M542 CERVICALGIA; [facility] COMPARISON: None TECHNIQUE: The cervical spine was imaged in frontal, lateral, odontoid and bilateral oblique. FINDINGS: The osseous structures show normal alignment without evidence of an acute fracture. There are minimal osteophytes noted throughout the cervical spine on the anterior and lateral aspects of the vertebral bodies. The intervertebral disk spaces are narrowed at multiple levels. Pedicles are intact. Soft t issues are within normal limits. The odontoid appears intact. IMPRESSION: 1. No fracture or dislocation. 2. Minimal degeneration of the cervical spine.
== END | disposition home or self-care (01) ==
LOC: RADXRYALE 13:09
PROVIDERS: ATTEND Family Medicine
DX: M50.30 Other cervical disc degeneration, unspecified cervical region (principal)
CPT/HCPCS: 72050

== ENCOUNTER → 2023-09-10 | Outpatient (CLI) | payer MEDICAID ==
--- NOTE | 2023-09-11 16:10 | MR ---
EXAMINATION TYPE: MR cervical spine wo con DATE OF EXAM: 09/10/2023 COMPARISON: 09/08/2017 HISTORY: 53-year-old female M54.2, M50.30 H81.4 R20.2, Vertigo, neck pain, burning sensation TECHNIQUE: Multiplanar, multisequence images of the cervical spine were acquired without contrast. FINDINGS: No craniocervical junction optimally, predental space widening, or prevertebral soft tissue swelling. Straightening of the normal cervical lordosis with preserved alignment. Mild heterogeneous marrow signal without suspicious bone marrow replacement. There is mild degenerative intervertebral disc desiccation throughout the cervical spine which may be minimally progressed from 2018. Tiny posterior broad-based disc bulges at C5-C6 and C6-C7 similar to minimally increased. There is re demonstration of a right paracentral annular fissure at C6-C7. No large focal disc herniation or significant spinal canal stenosis. Scattered [id number] facet degenerative change. No significant neuroforaminal stenosis. Normal course, caliber, and signal intensity of the cervical spinal cord. No prevertebral paravertebral soft tissue abnormality seen. IMPRESSION: 1. Mild degenerative disc disease characterized by intervertebral disc desiccation, minimally progres sed from 2018. Tiny broad-based posterior disc bulges at C5-C6 and C6-C7 are similar to minimally inc reased as well. Similar right paracentral annular fissure at C6-C7. 2. Scattered mild to moderate facet arthropathy. 3. No malalignment or large focal disc herniation. No significant spinal canal or neuroforaminal sten osis.
== END | disposition home or self-care (01) ==
LOC: RADMRIMAIN 17:55
PROVIDERS: ATTEND Family Medicine
DX: M47.812 Spondylosis without myelopathy or radiculopathy, cervical region (principal); M50.322 Other cervical disc degeneration at C5-C6 level; H81.4 Vertigo of central origin; R20.2 Paresthesia of skin
CPT/HCPCS: 72141

== ENCOUNTER → 2024-12-27 | Outpatient (CLI) | payer MEDICAID ==
--- NOTE | 2024-12-27 14:19 | XR ---
EXAMINATION TYPE: XR abdomen 2V DATE OF EXAM: 12/27/2024 COMPARISON: CT abdomen and pelvis 02/28/2021, KUB radiograph 03/30/2015 HISTORY: Lower abdominal pain TECHNIQUE: Single and upright views of the abdomen is obtained FINDINGS: Small bowel demonstrates no evidence for dilatation or air fluid levels. Gas and fecal material is seen in non-distended colon. No convincing evidence for pneumoperitoneum. Few pelvic phleboliths. The lung bases are clear. The osseous structures are intact. IMPRESSION: Overall nonobstructive bowel gas pattern. [facility], , 12/27/2024 2:16 PM
== END | disposition home or self-care (01) ==
LOC: RADXRYALE 14:03
PROVIDERS: ATTEND Physician Assistant Medical
DX: R10.30 Lower abdominal pain, unspecified (principal); R14.0 Abdominal distension (gaseous)
CPT/HCPCS: 74019